=== PATIENT | male | born 1955 | race Caucasian/White ===

== ENCOUNTER 2016-04-21 14:11 | Emergency (ER) | payer SELFPAY ==
--- NOTE | 2016-04-21 14:32 | ER Document Report ---
ED Medical Screen (RME) - General Chief Complaint: Rash Stated Complaint: RASH ON LEGS AND HANDS Mode of Arrival: Ambulatory Information source: Patient Notes: 60 y/o M with hx of type 2 IDDM presents to ED c/o redness, swelling, and drainage to left lower leg over the last 2 weeks. Denies fever. I have greeted and performed a rapid initial assessment of this patient. A comprehensive ED assessment and evaluation of the patient, analysis of test results and completion of the medical decision making process will be conducted by additional ED providers. TRAVEL OUTSIDE OF THE [place] IN LAST 30 DAYS: No - Related Data Allergies/Adverse Reactions: No Known Allergies Allergy (Verified 04/21/16 14:27) Past Medical History - Social History Chew tobacco use (# tins/day): No Frequency of alcohol use: None Drug Abuse: None Pulmonary Medical History: Denies: Hx Tuberculosis Neurological Medical History: Denies: Hx Seizures Renal/ Medical History: Denies: Hx Peritoneal Dialysis Past Surgical History: Denies: Hx Pacemaker - Immunizations Hx Diphtheria, Pertussis, Tetanus Vaccination: No Physical Exam - Vital signs Vitals: Temp Pulse Resp BP Pulse Ox 97.5 F 101 H 24 H 114/64 95 04/21/16 14:21 04/21/16 14:21 04/21/16 14:04/21/16 14:04/21/16 14:21 - General General appearance: Appears well, Alert In distress: None - Respiratory Respiratory status: No respiratory distress Course - Vital Signs Vital signs: Temp Pulse Resp BP Pulse Ox 97.5 F 101 H 24 H 114/64 95 04/21/16 14:21 04/21/16 14:21 04/21/16 14:21 04/21/16 14:21 04/21/16 14:21
[2016-04-21 14:52] LABS: ABSOLUTE BASOPHILS # (AUTO) 0.1 10^3/uL (0.0-0.2); ABSOLUTE EOSINOPHILS # (AUTO) 1.2 10^3/uL (0.0-0.6); ABSOLUTE LYMPHOCYTES (AUTO) 3.3 10^3/uL (0.5-4.7); ABSOLUTE MONOCYTES (AUTO) 1.1 10^3/uL (0.1-1.4); ABSOLUTE NEUT (AUTO) 8.9 10^3/uL (1.7-8.2); BASOPHILS % (AUTO) 0.8 % (0-2); EOSINOPHILS % (AUTO) 8.4 % (0-6); HEMATOCRIT 47.1 % (37.9-51.0); HEMOGLOBIN 15.9 g/dL (13.5-17.0); HGB HCT DIFFERENCE 0.6; LYMPHOCYTES % (AUTO) 22.8 % (13-45); MEAN CORPUSCULAR HEMOGLOBIN 30.7 pg (27.0-33.4); MEAN CORPUSCULAR HGB CONC 33.7 g/dL (32.0-36.0); MEAN CORPUSCULAR VOLUME 91 fl (80-97); MONOCYTES % (AUTO) 7.2 % (3-13); RED BLOOD COUNT 5.17 10^6/uL (4.35-5.55); RED CELL DISTRIBUTION WIDTH 13.6 % (11.5-14.0); SEGMENTED NEUTROPHILS % (AUTO) 60.8 % (42-78); WHITE BLOOD COUNT 14.6 10^3/uL (4.0-10.5)
[2016-04-21 14:58] LABS: APPEARANCE,URINE CLEAR; BILIRUBIN,URINE NEGATIVE (NEGATIVE); GLUCOSE, URINE NEGATIVE (NEGATIVE); KETONES,URINE TRACE mg/dL (NEGATIVE); LEUKOCYTE ESTERASE,URINE NEGATIVE (NEGATIVE); NITRITE,URINE NEGATIVE (NEGATIVE); PROTEIN,URINE 100 mg/dL (NEGATIVE)
[2016-04-21 15:12] LABS: ALANINE AMINOTRANSFERASE 30 U/L (21-72); ALBUMIN 4.2 g/dL (3.5-5.0); ALKALINE PHOSPHATASE 64 U/L (38-126); ANION GAP 12 (5-19); ASPARTATE AMINO TRANSFERASE 19 U/L (17-59); BILIRUBIN,TOTAL 0.5 mg/dL (0.2-1.3); BLOOD UREA NITROGEN 15 mg/dL (7-20); CARBON DIOXIDE 25 mmol/L (22-30); CHLORIDE 103 mmol/L (98-107); CREATININE RESULT 0.99 mg/dL (0.52-1.25); GLUCOSE 96 mg/dL (75-110); POTASSIUM 4.4 mmol/L (3.6-5.0); SODIUM 140.2 mmol/L (137-145)
[2016-04-21] MEDS ORDERED: DOXYCYCLINE HYCLATE 100 MG TABLET PO ONE (17:07)
--- NOTE | 2016-04-21 17:13 | ER Document Report ---
ED General - General Chief Complaint: Rash Stated Complaint: RASH ON LEGS AND HANDS Mode of Arrival: Ambulatory TRAVEL OUTSIDE OF THE [place] IN LAST 30 DAYS: No - HPI Patient complains to provider of: rash Notes: Patient coming in with a rash ongoing for the last 2 weeks. Patient states this rash started on his bilateral lower extremities has been placed alcohol peroxide on his rash. Patient states is continued today therefore came into the ER further evaluation is that he cannot be evaluated by his PCP until May Patient denies fevers chills nausea vomiting denies any medications. Patient is a diabetic. - Related Data Allergies/Adverse Reactions: No Known Allergies Allergy (Verified 04/21/16 14:27) Past Medical History - General Information source: Patient - Social History Smoking Status: Current Every Day Smoker Chew tobacco use (# tins/day): No Frequency of alcohol use: None Drug Abuse: None Family History: None Patient has suicidal ideation: No Patient has homicidal ideation: No - Past Medical History Cardiac Medical History: Reports: Hx Hypercholesterolemia Pulmonary Medical History: Denies: Hx Tuberculosis Neurological Medical History: Denies: Hx Seizures Endocrine Medical History: Reports: Hx Diabetes Mellitus Type 2 Renal/ Medical History: Denies: Hx Peritoneal Dialysis Surgical Hx: Negative Past Surgical History: Denies: Hx Pacemaker - Immunizations Hx Diphtheria, Pertussis, Tetanus Vaccination: Yes Review of Systems - Review of Systems Constitutional: No symptoms reported EENT: No symptoms reported Cardiovascular: No symptoms reported Respiratory: No symptoms reported Gastrointestinal: No symptoms reported Genitourinary: No symptoms reported Male Genitourinary: No symptoms reported Musculoskeletal: No symptoms reported Skin: Rash Hematologic/Lymphatic: No symptoms reported Neurological/Psychological: No symptoms reported -: Yes All other systems reviewed and negative Physical Exam - Vital signs Vitals: Temp Pulse Resp BP Pulse Ox 97.5 F 101 H 24 H 114/64 95 04/21/16 14:21 04/21/16 14:21 04/21/16 14:21 04/21/16 14:21 04/21/16 14:21 Interpretation: Normal - General General appearance: Appears well, Alert - HEENT Head: Normocephalic, Atraumatic Eyes: Normal Pupils: PERRL - Respiratory Respiratory status: No respiratory distress Chest status: Nontender Breath sounds: Normal Chest palpation: Normal - Cardiovascular Rhythm: Regular Heart sounds: Normal auscultation Murmur: No - Abdominal Inspection: Normal Distension: No distension Bowel sounds: Normal Tenderness: Nontender Organomegaly: No organomegaly - Back Back: Normal, Nontender - Extremities General upper extremity: Normal inspection, Nontender, Normal color, Normal ROM , Normal temperature General lower extremity: Normal inspection, Nontender, Normal color, Normal ROM , Normal temperature, Normal weight bearing. No: Arabella's sign - Neurological Neuro grossly intact: Yes Cognition: Normal Orientation: AAOx4 [place] Coma Scale Eye Opening: Spontaneous [place] Coma Scale Verbal: Oriented [place] Coma Scale Motor: Obeys Commands [place] Coma Scale Total: 15 Speech: Normal Motor strength normal: LUE, RUE, LLE, RLE Sensory: Normal - Psychological Associated symptoms: Normal affect, Normal mood - Skin Skin Temperature: Warm Skin Moisture: Dry Skin Color: Normal Notes: Patient with diffuse Tammie extremities. Rash change in characteristics throughout extremities. Rashes scaly with scarring from patient scratching days pruritic on the extremities and on the trunk. Large white plaques that can reflect off. There are multiple areas on the lower extremities. Minimal warmth. Patient has multiple areas on the back almost consistent with flea bites or insect bites. No posturals no drainage. Patient does have rash on his palms is non-blanchable unclear etiology. Patient denies any trauma. Course - Re-evaluation Re-evalutation: 04/22/16 23:07 Unknown etiology the patient's rash. Patient denies to bites denies any recent travel denies any recent mosquito bites states he does have animal dialysis denies any fleas. Patient will be started on doxycycline and RPR recent we will have social studies department chair contact patient to follow-up as PCP. 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 - Vital Signs Vital signs: Temp Pulse Resp BP Pulse Ox 97.5 F 89 20 140/75 H 97 04/21/16 17:28 04/21/16 17:28 04/21/16 17:28 04/21/16 17:28 04/21/16 17:28 - Laboratory Result Diagrams: 04/21/16 14:35 04/21/16 14:35 Laboratory results interpreted by me: 04/21/16 04/21/16 14:35 14:35 WBC 14.6 H Eosinophils % 8.4 H Absolute Neutrophils 8.9 H Absolute Eosinophils 1.2 H Urine Protein 100 H Urine Ketones TRACE H Urine Blood SMALL H Urine Urobilinogen 4.0 H Discharge - Discharge Clinical Impression: infected dermatitis Condition: Good Disposition: HOME, SELF-CARE Instructions: Contact Dermatitis ([facility]), Cellulitis ([facility]) Additional Instructions: At this time I am uncertain of a clear diagnosis for your rash. I will be concern some areas are becoming affected therefore we'll start you on doxycycline. Please take as directed. Unfortunately our social studies department chair has gone on for today but I will leave your information available for her to try to make an earlier appointment with the clinic tomorrow. He can expect a phone call tomorrow from Brian Patel RN Prescriptions: Doxycycline Hyclate 100 mg PO BID #20 capsule
[2016-04-21 17:32] VITALS: BP 140/75
== END 2016-04-21 17:28 | disposition home or self-care (01) ==
LOC: ER 14:11
DX: L30.3 Infective dermatitis (principal); E11.9 Type 2 diabetes mellitus without complications; F17.200 Nicotine dependence, unspecified, uncomplicated
CPT/HCPCS: 36415; 80053; 81001; 85025; 86592; 99283

== ENCOUNTER → 2016-05-19 | Outpatient (CLI) | payer OTHER ==
[2016-05-19 12:44] LABS: ABSOLUTE BASOPHILS # (AUTO) 0.1 10^3/uL (0.0-0.2); ABSOLUTE EOSINOPHILS # (AUTO) 0.8 10^3/uL (0.0-0.6); ABSOLUTE LYMPHOCYTES (AUTO) 2.1 10^3/uL (0.5-4.7); ABSOLUTE NEUT (AUTO) 4.9 10^3/uL (1.7-8.2); BASOPHILS % (AUTO) 0.7 % (0-2); EOSINOPHILS % (AUTO) 8.7 % (0-6); HEMATOCRIT 46.4 % (37.9-51.0); HEMOGLOBIN 15.8 g/dL (13.5-17.0); LYMPHOCYTES % (AUTO) 23.7 % (13-45); MEAN CORPUSCULAR HEMOGLOBIN 30.9 pg (27.0-33.4); MEAN CORPUSCULAR VOLUME 91 fl (80-97); RED BLOOD COUNT 5.11 10^6/uL (4.35-5.55); RED CELL DISTRIBUTION WIDTH 13.8 % (11.5-14.0); SEGMENTED NEUTROPHILS % (AUTO) 55.9 % (42-78); WHITE BLOOD COUNT 8.8 10^3/uL (4.0-10.5)
[2016-05-19 13:11] LABS: ALANINE AMINOTRANSFERASE 34 U/L (21-72); ALKALINE PHOSPHATASE 62 U/L (38-126); ANION GAP 11 (5-19); ASPARTATE AMINO TRANSFERASE 19 U/L (17-59); BILIRUBIN,TOTAL 0.5 mg/dL (0.2-1.3); BLOOD UREA NITROGEN 12 mg/dL (7-20); CALCIUM 9.5 mg/dL (8.4-10.2); CARBON DIOXIDE 28 mmol/L (22-30); CHLORIDE 102 mmol/L (98-107); CREATININE RESULT 0.83 mg/dL (0.52-1.25); GLUCOSE 154 mg/dL (75-110); POTASSIUM 4.4 mmol/L (3.6-5.0); SODIUM 140.7 mmol/L (137-145); TOTAL PROTEIN 6.7 g/dL (6.3-8.2)
[2016-05-19 13:21] LABS: ERYTHROCYTE SEDIMENTATION RATE 19 mm/hr (0-20)
== END ==
LOC: CCC 12:02
DX: R21 Rash and other nonspecific skin eruption (principal)
CPT/HCPCS: 36415; 80053; 85025; 85652; 86592

== ENCOUNTER → 2016-09-30 | Outpatient (CLI) | payer OTHER | LOC: CCC 12:51 | DX: E11.9 Type 2 diabetes mellitus without complications (principal) | CPT/HCPCS: 36415; 83036 ==

== ENCOUNTER 2018-01-06 10:21 | Inpatient (IN) | payer SELFPAY ==
[2018-01-06] MEDS ORDERED: FUROSEMIDE INJ/PF 40 MG/4 ML SDV IV ONE (10:49)
--- NOTE | 2018-01-06 10:50 | ER Document Report ---
ED Medical Screen (RME) - General Chief Complaint: Shortness Of Breath Stated Complaint: LEG SWELLING, SHORTNESS OF BREATH Time Seen by Provider: 01/06/18 10:45 TRAVEL OUTSIDE OF THE [place] IN LAST 30 DAYS: No - HPI Notes: 01/06/18 10:49 Leg swelling shortness of breath ongoing for a week with shortness of breath history of diabetes states his random of his "heart medication" denies OR in the past. Denies any pain - Related Data Allergies/Adverse Reactions: No Known Allergies Allergy (Verified 01/06/18 10:48) Past Medical History - Social History Chew tobacco use (# tins/day): No Frequency of alcohol use: None Drug Abuse: None - Past Medical History Cardiac Medical History: Reports: Hx Hypercholesterolemia Pulmonary Medical History: Denies: Hx Tuberculosis Neurological Medical History: Denies: Hx Seizures Endocrine Medical History: Reports: Hx Diabetes Mellitus Type 2 Renal/ Medical History: Denies: Hx Peritoneal Dialysis Past Surgical History: Denies: Hx Pacemaker - Immunizations Hx Diphtheria, Pertussis, Tetanus Vaccination: Yes Review of Systems - Review of Systems Respiratory: Short of breath Physical Exam - Vital signs Vitals: Temp Pulse Resp BP Pulse Ox 97.8 F 87 20 161/74 H 96 01/06/18 10:26 01/06/18 10:26 01/06/18 10:26 01/06/18 10:26 01/06/18 10:26 - Respiratory Respiratory status: No respiratory distress Chest status: Nontender Breath sounds: Rales Chest palpation: Normal - Extremities General lower extremity: Edema Course - Vital Signs Vital signs: Temp Pulse Resp BP Pulse Ox 97.8 F 87 20 161/74 H 96 01/06/18 10:26 01/06/18 10:26 01/06/18 10:26 01/06/18 10:26 01/06/18 10:26 Doctor's Discharge - Discharge Referrals: [facility] [Primary Care Provider] - Follow up as needed
[2018-01-06 11:35] LABS: ABSOLUTE BASOPHILS # (AUTO) 0.2 10^3/uL (0.0-0.2); ABSOLUTE EOSINOPHILS # (AUTO) 0.8 10^3/uL (0.0-0.6); ABSOLUTE LYMPHOCYTES (AUTO) 1.7 10^3/uL (0.5-4.7); ABSOLUTE MONOCYTES (AUTO) 0.8 10^3/uL (0.1-1.4); ABSOLUTE NEUT (AUTO) 7.4 10^3/uL (1.7-8.2); BASOPHILS % (AUTO) 1.5 % (0-2); EOSINOPHILS % (AUTO) 7.6 % (0-6); HEMATOCRIT 38.8 % (37.9-51.0); HEMOGLOBIN 12.9 g/dL (13.5-17.0); LYMPHOCYTES % (AUTO) 15.7 % (13-45); MEAN CORPUSCULAR HEMOGLOBIN 30.3 pg (27.0-33.4); MEAN CORPUSCULAR HGB CONC 33.2 g/dL (32.0-36.0); MEAN CORPUSCULAR VOLUME 91 fl (80-97); MONOCYTES % (AUTO) 7.3 % (3-13); PLATELET COUNT 302 10^3/uL (150-450); RED BLOOD COUNT 4.25 10^6/uL (4.35-5.55); RED CELL DISTRIBUTION WIDTH 14.6 % (11.5-14.0); SEGMENTED NEUTROPHILS % (AUTO) 67.9 % (42-78); TOTAL CELLS COUNTED % (AUTO) 100 %
[2018-01-06 11:39] LABS: INTERNATIONAL RATION (INR) 1.02; PROTHROMBIN TIME 13.9 SEC (11.4-15.4)
[2018-01-06 11:52] LABS: ALANINE AMINOTRANSFERASE 21 U/L (21-72); ALBUMIN 2.7 g/dL (3.5-5.0); ALKALINE PHOSPHATASE 185 U/L (38-126); ANION GAP 7 (5-19); ASPARTATE AMINO TRANSFERASE 29 U/L (17-59); BILIRUBIN,DIRECT 0.3 mg/dL (0.0-0.4); BILIRUBIN,TOTAL 0.5 mg/dL (0.2-1.3); BLOOD UREA NITROGEN 22 mg/dL (7-20); CALCIUM 8.2 mg/dL (8.4-10.2); CARBON DIOXIDE 24 mmol/L (22-30); CHLORIDE 114 mmol/L (98-107); CREATINE KINASE 445 U/L (55-170); GLUCOSE 129 mg/dL (75-110); POTASSIUM 4.2 mmol/L (3.6-5.0); TOTAL PROTEIN 5.7 g/dL (6.3-8.2)
--- NOTE | 2018-01-06 11:56 | RADIOLOGY REPORT (SQ) ---
EXAM DESCRIPTION: CHEST 2 VIEWS COMPLETED DATE/TIME: 01/06/2018 11:16 am REASON FOR STUDY: sob COMPARISON: 10/21/2015 chest films EXAM PARAMETERS: NUMBER OF VIEWS: two views TECHNIQUE: Digital Frontal and Lateral radiographic views of the chest acquired. RADIATION DOSE: NA LIMITATIONS: none FINDINGS: LUNGS AND PLEURA: Moderate bilateral pleural effusions are present. Alveolar and intersti tial edema is present with pulmonary vascular congestion. There is airspace disease in the lung bases, likely atelectasis. Pneumonia could not be excluded. MEDIASTINUM AND HILAR STRUCTURES: No masses or contour abnormalities. HEART AND VASCULAR STRUCTURES: Mild cardiomegaly BONES: No acute findings. HARDWARE: None in the chest. OTHER: No other significant finding. IMPRESSION: Bilateral pleural effusions, alveolar and interstitial edema worrisome for fluid overloa d or congestive failure. Bilateral basilar consolidation atelectasis versus pneumonia TECHNICAL DOCUMENTATION: JOB ID: [id number] [employer]- All Rights Reserved Reading location - IP/workstation name: [email or web address]
[2018-01-06 12:02] LABS: VENOUS BLOOD BASE EXCESS -4.3 mmol/L; VENOUS BLOOD HCO3 21.7 mmol/L (20-32); VENOUS BLOOD PH 7.32 (7.30-7.42)
[2018-01-06 12:04] LABS: CREATINE KINASE MB 7.23 ng/mL (<4.55); TROPONIN I 0.033 ng/mL
[2018-01-06] MEDS ORDERED: NITROGLYCERIN 2% OINTMENT 1 GM PACKET TP ONE (12:04)
--- NOTE | 2018-01-06 12:06 | ER Document Report ---
ED General - General Chief Complaint: Shortness Of Breath Stated Complaint: LEG SWELLING, SHORTNESS OF BREATH Time Seen by Provider: 01/06/18 10:45 Mode of Arrival: Ambulatory Information source: Patient TRAVEL OUTSIDE OF THE [place] IN LAST 30 DAYS: No - HPI Patient complains to provider of: short of breath Onset: Other - This is a 62-year-old man with a history of diabetes that presents for evaluation of worsening shortness of breath and leg swelling with associated pain over the last week. He notes that it is been progressive, his sister notes that he has become so short of breath but occasionally he is sitting on bed and will nod off or potentially pass out according to her. He is treated with insulin for diabetes, nothing seems to make this any better or worse. No fevers no chills no recent trauma swelling or other injuries. - Related Data Allergies/Adverse Reactions: No Known Allergies Allergy (Verified 01/06/18 10:48) Past Medical History - General Information source: Patient - Social History Smoking Status: Current Every Day Smoker Chew tobacco use (# tins/day): No Frequency of alcohol use: None Drug Abuse: None Family History: None Patient has suicidal ideation: No Patient has homicidal ideation: No - Past Medical History Cardiac Medical History: Reports: Hx Hypercholesterolemia Pulmonary Medical History: Denies: Hx Tuberculosis Neurological Medical History: Denies: Hx Seizures Endocrine Medical History: Reports: Hx Diabetes Mellitus Type 2 Renal/ Medical History: Denies: Hx Peritoneal Dialysis Past Surgical History: Denies: Hx Pacemaker - Immunizations Hx Diphtheria, Pertussis, Tetanus Vaccination: Yes Review of Systems - Review of Systems -: Yes All other systems reviewed and negative Physical Exam - Vital signs Vitals: Temp Pulse Resp BP Pulse Ox 97.8 F 87 20 161/74 H 96 01/06/18 10:26 01/06/18 10:26 01/06/18 10:26 01/06/18 10:26 01/06/18 10:26 - General General appearance: Appears well, Alert In distress: Mild - HEENT Head: Normocephalic Eyes: Normal Conjunctiva: Normal Cornea: Normal Extraocular movements intact: Yes Eyelashes: Normal Pupils: PERRL - Respiratory Respiratory status: Tachypnea Chest status: Nontender Breath sounds: Rhonchi - inferior lung jacob Chest palpation: Normal - Cardiovascular Rhythm: Regular Heart sounds: S2 appreciated Murmur: No - Abdominal Inspection: Normal Distension: Distended Tenderness: Nontender Organomegaly: No organomegaly - Back Back: Normal - Extremities General upper extremity: Normal inspection, Nontender, Normal strength, Normal temperature General lower extremity: Normal inspection, Edema - +3 pitting edema in the lower extremities bilaterally from the level of the knee distally - Neurological Neuro grossly intact: Yes Cognition: Normal Orientation: AAOx4 [place] Coma Scale Eye Opening: Spontaneous [place] Coma Scale Verbal: Oriented [place] Coma Scale Motor: Obeys Commands [place] Coma Scale Total: 15 Speech: Normal Cranial nerves: Normal Motor strength normal: LUE, RUE, LLE, RLE - Psychological Associated symptoms: Normal affect Course - Re-evaluation Re-evalutation: 01/06/18 13:49 This 62-year-old male presents for evaluation of swelling dyspnea in the setting of not having been treated for a long period of time. Given that this patient has evidence and signs of heart failure though he does not have a formal diagnosis patient was diuresed through triage. His EKG does demonstrate multiple areas of depressions concerning for demand ischemia. We will add a vasoactive agent as this patient is hypertensive at this time. Patient also has notable effusions on his chest x-ray. Has a markedly elevated BNP. His troponin is not appreciably elevated, as such I believe this is likely a pure heart failure exacerbation. Contacted Dr. Sanon who notes that the patient would benefit from from Vasotec, will initiate low-dose Vasotec 2.5 mg IV x1 as his renal function is somewhat limited. We will also dose patient with Toprol Exar, 100 mg. We will also plan for continued monitoring and aggressive diuresis. Patient is also had nitroglycerin paste applied to his chest. His work of breathing is modestly improved and has begun to urinate. Have spoken to the hospitalist Dr. Mcallister who agrees to admit this patient and continue monitoring will plan for admission to the hospital with telemetry. At the time of admission the patient was hemodynamically stable, his work of breathing had improved and he was on room air. - Vital Signs Vital signs: Temp Pulse Resp BP Pulse Ox 97.3 F 68 20 155/75 H 100 01/06/18 16:40 01/06/18 16:40 01/06/18 16:40 01/06/18 16:40 01/06/18 16:40 - Laboratory Result Diagrams: 10/20/18 11:00 01/06/18 11:00 Laboratory results interpreted by me: 01/06/18 01/06/18 01/06/18 11:00 11:00 11:00 WBC 11.0 H RBC 4.25 L Hgb 12.9 L RDW 14.6 H Eosinophils % 7.6 H Absolute Eosinophils 0.8 H Chloride 114 H BUN 22 H Creatinine 1.66 H Est GFR ( Amer) 51 L Est GFR (Non-Af Amer) 42 L Glucose 129 H Calcium 8.2 L Alkaline Phosphatase 185 H Creatine Kinase 445 H CK-MB (CK-2) 7.23 H NT-Pro-B Natriuret Pep 48121 H Total Protein 5.7 L Albumin 2.7 L Urine Protein Urine Glucose (UA) Urine Blood 01/06/18 01/06/18 01/06/18 12:21 13:45 13:45 WBC RBC Hgb RDW Eosinophils % Absolute Eosinophils Chloride BUN Creatinine Est GFR ( Amer) Est GFR (Non-Af Amer) Glucose Calcium Alkaline Phosphatase Creatine Kinase 426 H CK-MB (CK-2) 7.28 H NT-Pro-B Natriuret Pep Total Protein Albumin Urine Protein >=500 H Urine Glucose (UA) 50 H Urine Blood SMALL H Discharge - Discharge Clinical Impression: Leg swelling CHF (congestive heart failure) Qualifiers: Heart failure type: unspecified Heart failure chronicity: acute Qualified Code( s): I50.9 - Heart failure, unspecified Dyspnea Qualifiers: Dyspnea type: dyspnea on exertion Qualified Code(s): R06.09 - Other forms of dyspnea Leg pain Qualifiers: Laterality: left Qualified Code(s): M79.605 - Pain in left leg Condition: Stable Disposition: ADMITTED INPATIENT Admitting Provider: Hospitalist Unit Admitted: Telemetry Referrals: [facility] [NO LOCAL MD] - Follow up as needed
[2018-01-06] MEDS ORDERED: ENALAPRILAT DIHYDRATE INJ/PF 2.5 MG/2 ML SDV IV ONE (12:29)
[2018-01-06] MEDS ORDERED: METOPROLOL SUCCINATE 25 MG TAB.SR.24H PO ONE ×2 (12:30→12:36)
--- NOTE | 2018-01-06 12:57 | EKG REPORT ---
SEVERITY:- ABNORMAL ECG - SINUS RHYTHM PROBABLE LEFT ATRIAL ABNORMALITY RIGHT BUNDLE BRANCH BLOCK BORDERLINE ST DEPRESSION, LATERAL LEADS : Confirmed by: Bob Gutierrez MD 06-Jan-2018 12:57:10
[2018-01-06] MEDS ORDERED: TEMAZEPAM 15 MG CAPSULE PO PRN (13:26)
[2018-01-06] MEDS ORDERED: ACETAMINOPHEN 325 MG TABLET PO PRN (13:26)
[2018-01-06] MEDS ORDERED: MAGNESIUM HYDROXIDE SUSP 30 ML UDCUP PO PRN (13:26)
[2018-01-06] MEDS ORDERED: ONDANSETRON 4 MG TAB.RAPDIS PO PRN (13:26)
[2018-01-06] MEDS ORDERED: MAG HYDROX/AL HYDROX/SIMETH SUSP 30 ML UDCUP PO PRN (13:26)
[2018-01-06] MEDS ORDERED: SPIRONOLACTONE 25 MG TABLET PO ONE ×2 (13:41→17:15)
--- NOTE | 2018-01-06 13:44 | RADIOLOGY REPORT (SQ) ---
EXAM DESCRIPTION: VENOUS UNILATERAL LOWER COMPLETED DATE/TIME: 01/06/2018 12:36 pm REASON FOR STUDY: concern for dvt lle COMPARISON: None. TECHNIQUE: Dynamic and static almaraz scale and color images acquired of the left leg venous system. Se lected spectral images acquired with additional compression and augmentation maneuvers. The contralat eral common femoral vein and saphenofemoral junction were also imaged. Images stored on PACS. LIMITATIONS: None. FINDINGS: COMMON FEMORAL: Normal phasicity, compression and augmentation. No visualized echogenic ma terial on almaraz scale. No defects on color images. FEMORAL: Normal compression and augmentation. No visualized echogenic material on almaraz scale. No defe cts on color images. POPLITEAL: Normal compression, augmentation. No visualized echogenic material on almaraz scale. No defec ts on color images. CALF VESSELS: Normal compression, augmentation. No visualized echogenic material on almaraz scale. No de fects on color images. GSV and SSV: Normal compression, augmentation. No visualized echogenic material on almaraz scale. No def ects on color images. ANY DEEP VENOUS INSUFFICIENCY: Not evaluated. ANY EVIDENCE OF POPLITEAL CYST: No. OTHER: No other significant finding. CONTRALATERAL COMMON FEMORAL VEIN AND SAPHENOFEMORAL JUNCTION: Normal phasicity, compression and augmentation. No visualized echogenic material on almaraz scale. No de fects on color images. IMPRESSION: NO EVIDENCE OF DVT OR SVT IN THE LEFT LEG. TECHNICAL DOCUMENTATION: JOB ID: [id number] [employer]- All Rights Reserved Reading location - IP/workstation name: [email or web address]
[2018-01-06] MEDS ORDERED: MORPHINE SULFATE 10 MG/ML INJ IV ONE (14:09)
[2018-01-06] MEDS ORDERED: MORPHINE SULFATE 10 MG/ML INJ IV PRN (14:09)
[2018-01-06 14:44] LABS: CREATINE KINASE MB 7.28 ng/mL (<4.55); TROPONIN I 0.028 ng/mL
[2018-01-06 14:58] LABS: APPEARANCE,URINE CLEAR; BILIRUBIN,URINE NEGATIVE (NEGATIVE); COLOR,URINE YELLOW; GLUCOSE, URINE 50 mg/dL (NEGATIVE); KETONES,URINE NEGATIVE (NEGATIVE); LEUKOCYTE ESTERASE,URINE NEGATIVE (NEGATIVE); NITRITE,URINE NEGATIVE (NEGATIVE); PROTEIN,URINE >=500 mg/dL (NEGATIVE); URINE SPECIFIC GRAVITY 1.013; UROBILINOGEN,URINE NEGATIVE mg/dL (<2.0)
[2018-01-06 15:08] LABS: URINE AMPHETAMINES SCREEN NEGATIVE; URINE BARBITURATES SCREEN NEGATIVE; URINE BENZODIAZEPINES SCREEN NEGATIVE; URINE COCAINE SCREEN NEGATIVE; URINE MARIJUANA (THC) SCREEN NEGATIVE; URINE METHADONE SCREEN NEGATIVE; URINE PHENCYCLIDINE SCREEN NEGATIVE
[2018-01-06] MEDS ORDERED: INSULIN LISPRO 100 UNIT/ML 3 ML VIAL SUBCUT PRN (15:53)
[2018-01-06] MEDS ORDERED: HUM INSULIN NPH/REG INSULIN HM 100 UNIT/1 ML 3 ML SUBCUT SCH (16:00)
--- NOTE | 2018-01-06 16:30 | PDOC H&P ---
History of Present Illness Admission Date/PCP: 01/06/2018 [facility] Patient complains of: Dyspnea and swelling History of Present Illness: YAHIR PARSON is a 62 year old male who presents to the emergency room with a one-week history of gradually worsening dyspnea and swelling of his bilateral lower extremities. His dyspnea is markedly worsened by activity and somewhat relieved by rest. He assesses his dyspnea as severe at this time because he is currently so short of breath that he has a hard time sitting up. His swelling has been severe with making the use of footware very uncomfortable and restricting his ability to ambulate. The swelling affects his bilateral feet and both of his lower legs up to just above his knees. He has had the associated symptoms of somnolence episodes when he is trying to sit up (his sister notes that he will just "nod off" at times. He denies chest pain, palpitations, orthopnea, diaphoresis, nausea, vomiting, abdominal pain, constipation, diarrhea, dyspepsia, dysuria, back pain, neck pain, jaw pain, arm pain, headache and rash. He denies prior similar episodes and has not identified any other aggravating or ameliorating factors for his dyspnea or swelling. He gives a past medical history positive for diabetes and hypertension but he is indigent and is only taking Humulin 70/30 insulin for his diabetes twice a day as it is provided to him by the [facility]. In the emergency room he was found to have a markedly elevated BNP at 11,800 with a creatinine of 1.66 and mildly elevated cardiac enzymes. He will be admitted to the hospitalist service on the medical floor for treatment of his acute congestive heart failure and further evaluation of his cardiac status. Past Medical History Cardiac Medical History: Reports: Hyperlipidema, Hypertension, Other - Diabetes mellitus type 2 Denies: Atrial Fibrillation, Congestive Heart Failure, Coronary Artery Disease, DVT, Myocardial Infarction, Peripheral Vascular Disease, Pulmonary Embolism, Heart Murmur Pulmonary Medical History: Denies: Asthma, Chronic Obstructive Pulmonary Disease (COPD), Intubation, Pneumonia, Respiratory Failure, Tuberculosis EENT Medical History: Reports: None Neurological Medical History: Denies: Hemorrhagic CVA, Ischemic CVA, Seizures Endocrine Medical History: Reports: Diabetes Mellitus Type 2 Denies: Diabetes Mellitus Type 1, Hyperthyroidism, Hypothyroidism Renal/ Medical History: Denies: Chronic Kidney Disease, Nephrolithiasis Malignancy Medical History: Reports: None GI Medical History: Denies: Cirrhosis, Crohn's Disease, Gastroesophageal Reflux Disease, Hepatitis, Peptic Ulcer Disease, Ulcerative Colitis Musculoskeltal Medical History: Denies: Arthritis, Gout Skin Medical History: Denies: Eczema, Psoriasis Psychiatric Medical History: Reports: Tobacco Dependency Denies: Alcohol Dependency, Dementia, Depression, General Anxiety Disorder, Substance Abuse Traumatic Medical History: Reports: None Hematology: Denies: Anemia, Hemophilia, Bleeding Tendencies Infectious Medical History: Reports: None Past Surgical History Past Surgical History: Denies: Cardiac Catheterization, Orthopedic Surgery, Pacemaker, Thyroidectomy , Vascular Surgery Social History Lives with: Family Smoking Status: Current Every Day Smoker Frequency of Alcohol Use: Rare Hx Recreational Drug Use: No Hx Prescription Drug Abuse: No Family History Family History: DM, Hypertension Parental Family History Reviewed: Yes Children Family History Reviewed: NA Sibling(s) Family History Reviewed.: Yes Medication/Allergy Home Medications: Insulin Glargine,Hum.rec.anlog [Lantus] 40 unit SQ QHS 01/06/18 Allergies/Adverse Reactions: No Known Allergies Allergy (Verified 01/06/18 10:48) Review of Systems Constitutional: ABSENT: chills, fatigue, fever(s), weakness Eyes: ABSENT: visual disturbances, other - Ocular pain Ears: ABSENT: hearing changes, other - Ear pain Nose, Mouth, and Throat: ABSENT: headache(s), mouth pain, sore throat, vertigo Cardiovascular: PRESENT: dyspnea on exertion, edema, orthropnea. ABSENT: chest pain, palpitations Respiratory: PRESENT: cough, dyspnea. ABSENT: hemoptysis, sputum Gastrointestinal: ABSENT: abdominal pain, constipation, diarrhea, dysphagia, hematochezia, melena, nausea, vomiting, other - Dyspepsia Genitourinary: ABSENT: difficulty urinating, dysuria, hematuria Musculoskeletal: PRESENT: other - Intermittent pain in the right knee. ABSENT: back pain, deformity, joint swelling, muscle weakness Integumentary: PRESENT: other - Dark skin of bilateral lower legs with scaling appearance. ABSENT: pruritus, rash Neurological: PRESENT: confusion - With history of present illness. ABSENT: convulsions, dizziness, focal weakness, memory loss, paresthesias, syncope, tremor(s) Psychiatric: PRESENT: anxiety - With history of present illness. ABSENT: depression Endocrine: ABSENT: cold intolerance, heat intolerance, polydipsia, polyphagia, polyuria Hematologic/Lymphatic: ABSENT: easy bleeding, easy bruising Allergic/Immunologic: ABSENT: seasonal rhinorrhea, other - Insect bite allergy Physical Exam Vital Signs: Temp Pulse Resp BP Pulse Ox 97.8 F 87 25 H 206/98 H 94 01/06/18 10:26 01/06/18 10:26 01/06/18 12:01 01/06/18 12:01 01/06/18 12:01 General appearance: PRESENT: cooperative, mild distress - Mild respiratory distress Head exam: PRESENT: atraumatic, normocephalic Eye exam: PRESENT: conjunctiva pink, EOMI. ABSENT: conjunctival injection, nystagmus, periorbital swelling, scleral icterus Ear exam: PRESENT: normal external ear exam. ABSENT: bleeding, drainage Mouth exam: PRESENT: neck supple, tongue midline Neck exam: PRESENT: JVD - Moderate bilateral JVD at 30 degrees of elevation. ABSENT: thyromegaly, tracheal deviation Respiratory exam: PRESENT: decreased breath sounds - Bilateral lower lung jacob show significant decrease in breath sounds and dullness on percussion., rales - Bilateral fine rales in the lower one third of both lung jacob, symmetrical, tachypnea, unlabored. ABSENT: prolonged expiratory phas, rhonchi, stridor, wheezes Cardiovascular exam: PRESENT: gallop - A moderate S3 gallop is noted, RRR, tachycardia. ABSENT: clicks, rubs Pulses: PRESENT: normal radial pulses, other - Decreased pedal pulses bilaterally secondary to edema Vascular exam: PRESENT: normal capillary refill. ABSENT: pallor GI/Abdominal exam: PRESENT: normal bowel sounds, soft Rectal exam: PRESENT: deferred Extremities exam: PRESENT: other - There is 3+ pitting edema of the bilateral lower extremities from the feet to the distal one third of the femurs.. ABSENT : joint swelling Musculoskeletal exam: ABSENT: deformity, dislocation, tenderness Neurological exam: PRESENT: alert, oriented to person, oriented to place, oriented to time, oriented to situation, CN II-XII grossly intact. ABSENT: motor sensory deficit Psychiatric exam: PRESENT: appropriate affect, normal mood Skin exam: ABSENT: jaundice, rash, urticaria Results Laboratory Results: 01/06/18 11:00 01/06/18 11:00 01/06/18 01/06/18 01/06/18 11:00 11:00 11:50 WBC 11.0 H RBC 4.25 L Hgb 12.9 L Hct 38.8 MCV 91 MCH 30.3 MCHC 33.2 RDW 14.6 H Plt Count 302 Seg Neutrophils % 67.9 Lymphocytes % 15.7 Monocytes % 7.3 Eosinophils % 7.6 H Basophils % 1.5 Absolute Neutrophils 7.4 Absolute Lymphocytes 1.7 Absolute Monocytes 0.8 Absolute Eosinophils 0.8 H Absolute Basophils 0.2 VBG pH 7.32 VBG pCO2 43.0 VBG HCO3 21.7 VBG Base Excess -4.3 Sodium 145.0 Potassium 4.2 Chloride 114 H Carbon Dioxide 24 Anion Gap 7 BUN 22 H Creatinine 1.66 H Est GFR ( Amer) 51 L Est GFR (Non-Af Amer) 42 L Glucose 129 H Calcium 8.2 L Total Bilirubin 0.5 AST 29 ALT 21 Alkaline Phosphatase 185 H Total Protein 5.7 L Albumin 2.7 L 01/06/18 01/06/18 11:00 11:00 Creatine Kinase 445 H CK-MB (CK-2) 7.23 H Troponin I 0.033 NT-Pro-B Natriuret Pep 26781 H Impressions: Chest X-Ray 01/06/18 10:48 IMPRESSION: Bilateral pleural effusions, alveolar and interstitial edema worrisome for fluid overload or congestive failure. Bilateral basilar consolidation atelectasis versus pneumonia Venous Doppler Study 01/06/18 11:42 IMPRESSION: NO EVIDENCE OF DVT OR SVT IN THE LEFT LEG. Assessment & Plan - Diagnosis (1) Acute CHF (congestive heart failure) Qualifiers: Heart failure type: unspecified Qualified Code(s): I50.9 - Heart failure, unspecified Is this a current diagnosis for this admission?: Yes Plan: Serial cardiac enzymes will be obtained, as will serial EKGs. An echocardiogram will be performed and will arrange for Dr. Sanon to interpret it. Medical regiment utilizing metoprolol XL, Spironolactone, losartan, torsemide and possibly a statin agent if appropriate after obtaining a lipid profile. In assessment of overall thyroid function utilizing a TSH will be obtained as will regular daily lab work of a CBC, BMP and magnesium level. With patient's initial dyspnea and marked edema he is significantly uncomfortable and it would warrant treating him with low-dose morphine to aid in his comfort and also help to resolve his heart failure. As such he will receive morphine sulfate 2 mg IV stat and this can be repeated every 4 hours as needed for severe dyspnea or restlessness and discomfort. (2) DM II (diabetes mellitus, type II), controlled Qualifiers: Diabetes mellitus acupuncture physician insulin use: with mcfp use Diabetes mellitus complication status: with kidney complications Diabetes mellitus complication detail: with chronic kidney disease Chronic kidney disease stage : stage 3 (moderate) Qualified Code(s): E11.22 - Type 2 diabetes mellitus with diabetic chronic kidney disease; N18.3 - Chronic kidney disease, stage 3 ( moderate); N18.3 - Chronic kidney disease, stage 3 (moderate); N18.3 - Chronic kidney disease, stage 3 (moderate); Z79.4 - group home (current) use of insulin; Z79.4 - cvt tech (current) use of insulin; Z79.4 - cvt tech (current) use of insulin; Z79.4 - group home (current) use of insulin Is this a current diagnosis for this admission?: Yes Plan: Patient will be continued on his current human insulin NPH/regular 70/30 using 25 units subcutaneously twice a day before breakfast and supper. He will be placed on a sliding scale with lispro insulin and before meals and at bedtime blood sugars to monitor his diabetes. Additionally hemoglobin A1c will be obtained in a.m. (3) HTN (hypertension), malignant Is this a current diagnosis for this admission?: Yes Plan: Patient's blood pressure will be addressed in time is to address his congestive heart failure utilizing a combination of agents including metoprolol extended release 200 mg p.o. daily, losartan 100 mg p.o. daily, spironolactone 25 mg p.o. daily, torsemide 40 mg p.o. daily. Daily lab values will be obtained to monitor the potential therapeutic side effects for depletion of vital electrolytes. Renal functions will also be reassessed daily. (4) CKD (chronic kidney disease) stage 3, GFR 30-59 ml/min Is this a current diagnosis for this admission?: Yes Plan: Patient has chronic renal failure stage IIIb. The patient's medication regimen is adjusted such that his SHE inhibitor (lisinopril) is discontinued in favor of the use of an ARB (losartan) in hopes that we may see some slight improvement in his renal function. His renal functions will be monitored on a daily basis throughout his hospital course. - Time Time Spent: Greater than 70 Minutes - [id number] Smoking Cessation Education: 3 to 10 minutes Medications reviewed and adjusted accordingly: Yes Anticipated discharge: Home - Plan Summary Plan Summary: Admit to acute inpatient medical care on the medical floor.
[2018-01-06] MEDS ORDERED: TORSEMIDE 20 MG TABLET PO ONE (17:09)
[2018-01-06] MEDS: DOCUSATE SODIUM 100 MG CAPSULE PO SCH (17:40)
[2018-01-06] MEDS: TORSEMIDE 20 MG TABLET PO SCH (17:49)
[2018-01-06] MEDS: LOSARTAN POTASSIUM 50 MG TABLET PO SCH (17:55)
[2018-01-06 20:08] LABS: CREATINE KINASE MB 6.37 ng/mL (<4.55); TROPONIN I 0.028 ng/mL
[2018-01-06] MEDS ORDERED: INSULIN GLARGINE,HUM.REC.ANLOG 1,000 UNIT/10 ML UNIT SUBCUT SCH (22:00)
[2018-01-06] MEDS: METOPROLOL SUCCINATE 50 MG TAB.SR.24H PO SCH (22:56)
[2018-01-06] MEDS: FAMOTIDINE 20 MG TABLET PO SCH (22:56)
[2018-01-07 02:50] LABS: CREATINE KINASE MB 6.2 ng/mL (<4.55); TROPONIN I 0.024 ng/mL
[2018-01-07 05:34] LABS: HEMATOCRIT 36.7 % (37.9-51.0); HEMOGLOBIN 12.6 g/dL (13.5-17.0); MEAN CORPUSCULAR HEMOGLOBIN 31.2 pg (27.0-33.4); MEAN CORPUSCULAR HGB CONC 34.4 g/dL (32.0-36.0); MEAN CORPUSCULAR VOLUME 91 fl (80-97); PLATELET COUNT 313 10^3/uL (150-450); RED BLOOD COUNT 4.05 10^6/uL (4.35-5.55); RED CELL DISTRIBUTION WIDTH 14.8 % (11.5-14.0); WHITE BLOOD COUNT 9.8 10^3/uL (4.0-10.5)
[2018-01-07 05:52] LABS: ANION GAP 5 (5-19); BLOOD UREA NITROGEN 23 mg/dL (7-20); CALCIUM 8.4 mg/dL (8.4-10.2); CARBON DIOXIDE 25 mmol/L (22-30); CHLORIDE 113 mmol/L (98-107); CHOLESTEROL 181.48 mg/dL (0-200); GLUCOSE 85 mg/dL (75-110); POTASSIUM 3.9 mmol/L (3.6-5.0); SODIUM 143.2 mmol/L (137-145); TRIGLYCERIDES 88 mg/dL (<150)
[2018-01-07 06:03] LABS: DIRECT LDL 120 mg/dL (<100)
[2018-01-07] MEDS: FAMOTIDINE 20 MG TABLET PO SCH ×2 (09:31→21:37)
[2018-01-07] MEDS: TORSEMIDE 20 MG TABLET PO SCH (09:31)
[2018-01-07] MEDS: DOCUSATE SODIUM 100 MG CAPSULE PO SCH ×2 (09:31→17:10)
[2018-01-07] MEDS: LOSARTAN POTASSIUM 50 MG TABLET PO SCH (09:31)
[2018-01-07] MEDS: ENOXAPARIN SODIUM INJ 40 MG/0.4 ML DISP.SYRIN SUBCUT SCH (09:32)
--- NOTE | 2018-01-07 12:51 | XCELERA REPORT ---
[address] [address] Transthoracic Echocardiogram Report Name: YAHIR PARSON Age: 62 yrs Gender: Male : 1955 Patient Status: Inpatient Patient Location: [place] [address]^A Study Date: 01/06/2018 02:59 PM Height: 72 in Weight: 220 lb BSA: 2.2 m2 Procedure: A two-dimensional transthoracic echocardiogram with color flow and Doppler was performed. Study Quality: Technically suboptimal. Images were not obtained from all of the standard acoustic windows due to the limited scope of the study. Reason For Study: ACUTE CONGESTIVE HEART FAILURE History: ACUTE CONGESTIVE HEART FAILURE. Ordering Physician: BISHOP VERNON Performed By: Lowell Martinez Interpretation Summary No True apical 2 chamber views obtained.Hence cannot comment on the apical anterior , the basal anterior, the basal inferior and apical inferior garcia.The mid anterior , the mid inferior and the rest of the LV garcia contract normally. .Normal LVEF is low normal at 55% in the limited views The left ventricle is normal in size. There is mild concentric left ventricular hypertrophy. The right ventricle is not well visualized secondary to technical limitations The left atrial size is normal. There is no evidence of mitral valve prolapse. There is no mitral valve stenosis. There is a mild amount of mitral regurgitation There is no aortic valve stenosis There is no LVOT obstruction. There is a trace amount of aortic regurgitation There is no tricuspid stenosis. There is a trace amount of tricuspid regurgitation Unable to calculate RVSP due lack of TR jet. The pulmonic valve is not well visualized. There is no pericardial effusion. MMode/2D Measurements & Calculations RVDd: 3.0 cm LVIDd: 5.4 cm FS: 21.7 % Ao root diam: 3.3 cm IVSd: 1.3 cm LVIDs: 4.2 cm EDV(Teich): 140.1 ml Ao root area: 8.6 cm2 LVPWd: 1.3 cm ESV(Teich): 79.2 ml LA dimension: 4.1 cm EF(Teich): 43.4 % LVOT diam: 2.0 cm LVOT area: 3.3 cm2 Doppler Measurements & Calculations MV E max lee: MV P1/2t max lee: Ao V2 max: LV V1 max P.6 cm/sec 116.4 cm/sec 88.0 cm/sec 2.1 mmHg MV A max lee: MV P1/2t: 87.1 msec Ao max P.1 mmHgLV V1 max: 45.4 cm/sec MVA(P1/2t): 2.5 cm2 BRITTNEY(V,D): 2.7 cm2 72.1 cm/sec MV E/A: 2.4 MV dec slope: 391.7 cm/sec2 MV dec time: 0.24 sec MR max lee: PA V2 max: MV P1/2t-pr_phl: 289.9 cm/sec 101.4 cm/sec 87.1 msec MR max PG: PA max P.1 mmHg 33.6 mmHg Left Ventricle The left ventricle is normal in size. There is mild concentric left ventricular hypertrophy. No True apical 2 chamber views obtained.Hence cannot comment on the apical anterior , the basal anterior, the basal inferior and apical inferior garcia.The mid anterior , the mid inferior and the rest of the LV garcia contract normally. .Normal LVEF is low normal at 55% in the limited views. Doppler measurements suggest normal left ventricular diastolic function. There is no thrombus. Right Ventricle The right ventricle is not well visualized secondary to technical limitations. Atria The right atrium is normal. The left atrial size is normal. Mitral Valve There is no evidence of mitral valve prolapse. There is no vegetation seen on the mitral valve. There is no mitral valve stenosis. There is a mild amount of mitral regurgitation. Aortic Valve There is no aortic valvular vegetation. There is no aortic valve stenosis. There is no LVOT obstruction. There is a trace amount of aortic regurgitation. Tricuspid Valve There is no tricuspid stenosis. There is a trace amount of tricuspid regurgitation. Unable to calculate RVSP due lack of TR jet. Pulmonic Valve The pulmonic valve is not well visualized. Great Vessels The aortic root is not well visualized but is probably normal size. Effusions There is no pericardial effusion. : BISHOP VERNON > Tea Sanon
--- NOTE | 2018-01-07 13:12 | PDOC PROGRESS REPORT ---
Subjective Progress Note for:: 01/07/18 Subjective:: YAHIR PARSON is a 62 year old male who presents to the emergency room with a one-week history of gradually worsening dyspnea and swelling of his bilateral lower extremities. His dyspnea is markedly worsened by activity and somewhat relieved by rest. He assesses his dyspnea as severe at this time because he is currently so short of breath that he has a hard time sitting up. His swelling has been severe with making the use of footware very uncomfortable and restricting his ability to ambulate. The swelling affects his bilateral feet and both of his lower legs up to just above his knees. He has had the associated symptoms of somnolence episodes when he is trying to sit up (his sister notes that he will just "nod off" at times. He denies chest pain, palpitations, orthopnea, diaphoresis, nausea, vomiting, abdominal pain, constipation, diarrhea, dyspepsia, dysuria, back pain, neck pain, jaw pain, arm pain, headache and rash. He denies prior similar episodes and has not identified any other aggravating or ameliorating factors for his dyspnea or swelling. He gives a past medical history positive for diabetes and hypertension but he is indigent and is only taking Humulin 70/30 insulin for his diabetes twice a day as it is provided to him by the [facility]. In the emergency room he was found to have a markedly elevated BNP at 11,800 with a creatinine of 1.66 and mildly elevated cardiac enzymes. He will be admitted to the hospitalist service on the medical floor for treatment of his acute congestive heart failure and further evaluation of his cardiac status. 01/07/18: Patient is showing significant improvement in his breathing as well as a dramatic reduction in his lower extremity edema. He states he feels a lot better than he did yesterday and comments that his breathing is better than it has been in a long time and is swelling his significantly decreased and he is able to stand up without having discomfort in his feet. He also noticed that he has less somnolence and seems to be more alert and mentally keen than he was yesterday and for several days previous. His blood sugars reflect reasonably good control of his diabetes and his renal status is essentially unchanged. His echocardiogram was suboptimal but revealed a ejection fraction of 55% and concentric left ventricular wall hypertrophy. His cardiac enzymes are elevated but serially showed no significant increase or decrease, thus demonstrating no acute cardiac changes but changes in the enzymes probably due to his chronic renal failure. He will be continued on his current regiment and if his improvement continues at the present pace he will be able to be discharged tomorrow, a thought which pleases him greatly. Reason For Visit: ACUTE CONGESTIVE HEART FAILURE Physical Exam Vital Signs: Temp Pulse Resp BP Pulse Ox 97.3 F 59 L 20 132/66 H 100 01/07/18 08:00 01/07/18 08:00 01/07/18 08:00 01/07/18 08:00 01/07/18 08:00 Intake & Output 01/05/18 01/06/18 01/07/18 23:59 23:59 23:59 Intake Total 466 Balance 466 Weight 105.5 kg 105.5 kg General appearance: PRESENT: no acute distress, cooperative, well-developed, well-nourished Head exam: PRESENT: atraumatic, normocephalic Eye exam: ABSENT: conjunctival injection, periorbital swelling, scleral icterus Ear exam: PRESENT: normal external ear exam. ABSENT: drainage Mouth exam: PRESENT: neck supple, tongue midline Neck exam: ABSENT: thyromegaly, tracheal deviation Respiratory exam: PRESENT: clear to auscultation ochoa, symmetrical, unlabored Cardiovascular exam: PRESENT: RRR. ABSENT: clicks, gallop, rubs Vascular exam: PRESENT: normal capillary refill. ABSENT: pallor GI/Abdominal exam: PRESENT: normal bowel sounds, soft Rectal exam: PRESENT: deferred Extremities exam: PRESENT: other - Trace to 1+ I lateral pretibial edema is noted (significantly improved from yesterday's exam). ABSENT: joint swelling, tenderness Neurological exam: PRESENT: alert, oriented to person, oriented to place, oriented to time, oriented to situation, CN II-XII grossly intact. ABSENT: motor sensory deficit Psychiatric exam: PRESENT: appropriate affect, normal mood Skin exam: ABSENT: jaundice, rash, urticaria Results Laboratory Results: 01/07/18 04:52 01/07/18 04:52 01/07/18 01/07/18 01/07/18 04:52 04:52 04:52 WBC 9.8 RBC 4.05 L Hgb 12.6 L Hct 36.7 L MCV 91 MCH 31.2 MCHC 34.4 RDW 14.8 H Plt Count 313 Sodium 143.2 Potassium 3.9 Chloride 113 H Carbon Dioxide 25 Anion Gap 5 BUN 23 H Creatinine 1.78 H Est GFR ( Amer) 47 L Est GFR (Non-Af Amer) 39 L Glucose 85 Calcium 8.4 Magnesium 1.7 Triglycerides 88 Cholesterol 181.48 LDL Cholesterol Direct 120 H VLDL Cholesterol 18.0 HDL Cholesterol 40 TSH 2.91 01/06/18 01/06/18 01/07/18 19:30 19:30 01:23 Creatine Kinase 363 H CK-MB (CK-2) 6.37 H 6.20 H Troponin I 0.028 0.024 01/07/18 01:23 Creatine Kinase 306 H CK-MB (CK-2) Troponin I Impressions: Chest X-Ray 01/06/18 10:48 IMPRESSION: Bilateral pleural effusions, alveolar and interstitial edema worrisome for fluid overload or congestive failure. Bilateral basilar consolidation atelectasis versus pneumonia Venous Doppler Study 01/06/18 11:42 IMPRESSION: NO EVIDENCE OF DVT OR SVT IN THE LEFT LEG. Assessment & Plan - Diagnosis (1) Acute CHF (congestive heart failure) Qualifiers: Heart failure type: unspecified Qualified Code(s): I50.9 - Heart failure, unspecified Is this a current diagnosis for this admission?: Yes Plan: Serial cardiac enzymes will be obtained, as will serial EKGs. An echocardiogram will be performed and will arrange for Dr. Sanon to interpret it. Medical regiment utilizing metoprolol XL, Spironolactone, losartan, torsemide and possibly a statin agent if appropriate after obtaining a lipid profile. In assessment of overall thyroid function utilizing a TSH will be obtained as will regular daily lab work of a CBC, BMP and magnesium level. With patient's initial dyspnea and marked edema he is significantly uncomfortable and it would warrant treating him with low-dose morphine to aid in his comfort and also help to resolve his heart failure. As such he will receive morphine sulfate 2 mg IV stat and this can be repeated every 4 hours as needed for severe dyspnea or restlessness and discomfort. 01/07/18: Patient will be continued on his current therapeutic regiment with the addition of Lipitor 40 mg p.o. nightly daily due to his elevated LDL. A baseline BNP will be obtained in the morning and if he continues to do well he will be discharged tomorrow. (2) DM II (diabetes mellitus, type II), controlled Qualifiers: Diabetes mellitus application support lead insulin use: with fdc use Diabetes mellitus complication status: with kidney complications Diabetes mellitus complication detail: with chronic kidney disease Chronic kidney disease stage : stage 3 (moderate) Qualified Code(s): E11.22 - Type 2 diabetes mellitus with diabetic chronic kidney disease; N18.3 - Chronic kidney disease, stage 3 ( moderate); N18.3 - Chronic kidney disease, stage 3 (moderate); N18.3 - Chronic kidney disease, stage 3 (moderate); Z79.4 - ip counsel (current) use of insulin; Z79.4 - ip counsel (current) use of insulin; Z79.4 - [facility] (current) use of insulin; Z79.4 - ip counsel (current) use of insulin Is this a current diagnosis for this admission?: Yes Plan: Patient will be continued on his current Lantus 40 units subcu daily. He will be placed on a sliding scale with lispro insulin and before meals and at bedtime blood sugars to monitor his diabetes. Additionally hemoglobin A1c will be obtained in a.m. 01/07/18: Patient's hemoglobin A1c is 6.0 and his blood sugars have been very well controlled on his current regimen, which will therefore be continued. (3) HTN (hypertension), malignant Is this a current diagnosis for this admission?: Yes Plan: Patient's blood pressure will be addressed in time is to address his congestive heart failure utilizing a combination of agents including metoprolol extended release 200 mg p.o. daily, losartan 100 mg p.o. daily, spironolactone 25 mg p.o. daily, torsemide 40 mg p.o. daily. Daily lab values will be obtained to monitor the potential therapeutic side effects for depletion of vital electrolytes. Renal functions will also be reassessed daily. 01/07/18: Patient's blood pressure has been very well controlled with his congestive heart failure regimen initiated yesterday. He will be continued on this regimen through the remainder of his hospitalization and he will be discharged on the same medications with a possible reduction in his torsemide dose to 10 mg daily as a starting point for chronic therapy. (4) CKD (chronic kidney disease) stage 3, GFR 30-59 ml/min Is this a current diagnosis for this admission?: Yes Plan: Patient has chronic renal failure stage IIIb. The patient's medication regimen is adjusted such that his SHE inhibitor (lisinopril) is discontinued in favor of the use of an ARB (losartan) in hopes that we may see some slight improvement in his renal function. His renal functions will be monitored on a daily basis throughout his hospital course. 01/07/18: Patient's creatinine increased slightly overnight with extensive diuresis noted. Consideration will be given to reducing his diuretic dosage of torsemide from 40 mg daily to 10 mg daily at the time of discharge but he will be continued on his current regimen during the remainder of his hospital course. We will continue to follow daily laboratory evaluations. - Time Time Spent with patient: 25-34 minutes Smoking Cessation Education: 3 to 10 minutes Anticipated discharge: Home Within: within 24 hours
[2018-01-07] MEDS ORDERED: NICOTINE 21 MG/24 HR PATCH.TD24 TD PRN (14:52)
[2018-01-07] MEDS ORDERED: LOSARTAN POTASSIUM 50 MG TABLET PO ONE (17:08)
[2018-01-07] MEDS: METOPROLOL SUCCINATE 50 MG TAB.SR.24H PO SCH (21:37)
[2018-01-07] MEDS: ATORVASTATIN CALCIUM 40 MG TABLET PO SCH (21:37)
[2018-01-07] MEDS ORDERED: INSULIN GLARGINE,HUM.REC.ANLOG 1,000 UNIT/10 ML UNIT SUBCUT SCH (22:00)
[2018-01-07] MEDS ORDERED: LORAZEPAM INJ 2 MG/1 ML VIAL IV ONE (23:45)
[2018-01-08] MEDS ORDERED: LORAZEPAM INJ 2 MG/1 ML VIAL IV ONE (05:00)
[2018-01-08 07:09] LABS: HEMOGLOBIN 12.3 g/dL (13.5-17.0); MEAN CORPUSCULAR HEMOGLOBIN 30.5 pg (27.0-33.4); MEAN CORPUSCULAR HGB CONC 33.4 g/dL (32.0-36.0); MEAN CORPUSCULAR VOLUME 92 fl (80-97); PLATELET COUNT 320 10^3/uL (150-450); RED BLOOD COUNT 4.04 10^6/uL (4.35-5.55); RED CELL DISTRIBUTION WIDTH 14.8 % (11.5-14.0); WHITE BLOOD COUNT 10.6 10^3/uL (4.0-10.5)
[2018-01-08 07:37] LABS: ANION GAP 9 (5-19); BLOOD UREA NITROGEN 34 mg/dL (7-20); CALCIUM 8.5 mg/dL (8.4-10.2); CARBON DIOXIDE 24 mmol/L (22-30); CHLORIDE 109 mmol/L (98-107); POTASSIUM 3.8 mmol/L (3.6-5.0); SODIUM 142.1 mmol/L (137-145)
[2018-01-08 07:48] LABS: GLUCOSE 40 mg/dL (75-110)
[2018-01-08] MEDS: FAMOTIDINE 20 MG TABLET PO SCH ×2 (09:47→21:16)
[2018-01-08] MEDS: TORSEMIDE 20 MG TABLET PO SCH ×2 (09:47→17:48)
[2018-01-08] MEDS: ENOXAPARIN SODIUM INJ 40 MG/0.4 ML DISP.SYRIN SUBCUT SCH (09:48)
[2018-01-08] MEDS: LOSARTAN POTASSIUM 50 MG TABLET PO SCH (09:48)
[2018-01-08] MEDS: DOCUSATE SODIUM 100 MG CAPSULE PO SCH ×2 (10:08→17:13)
[2018-01-08] MEDS ORDERED: INSULIN GLARGINE,HUM.REC.ANLOG 1,000 UNIT/10 ML UNIT SUBCUT SCH (16:56)
--- NOTE | 2018-01-08 17:14 | PDOC PROGRESS REPORT ---
Subjective Progress Note for:: 01/08/18 Subjective:: YAHIR PARSON is a 62 year old male who presents to the emergency room with a one-week history of gradually worsening dyspnea and swelling of his bilateral lower extremities. His dyspnea is markedly worsened by activity and somewhat relieved by rest. He assesses his dyspnea as severe at this time because he is currently so short of breath that he has a hard time sitting up. His swelling has been severe with making the use of footware very uncomfortable and restricting his ability to ambulate. The swelling affects his bilateral feet and both of his lower legs up to just above his knees. He has had the associated symptoms of somnolence episodes when he is trying to sit up (his sister notes that he will just "nod off" at times. He denies chest pain, palpitations, orthopnea, diaphoresis, nausea, vomiting, abdominal pain, constipation, diarrhea, dyspepsia, dysuria, back pain, neck pain, jaw pain, arm pain, headache and rash. He denies prior similar episodes and has not identified any other aggravating or ameliorating factors for his dyspnea or swelling. He gives a past medical history positive for diabetes and hypertension but he is indigent and is only taking Humulin 70/30 insulin for his diabetes twice a day as it is provided to him by the [facility]. In the emergency room he was found to have a markedly elevated BNP at 11,800 with a creatinine of 1.66 and mildly elevated cardiac enzymes. He will be admitted to the hospitalist service on the medical floor for treatment of his acute congestive heart failure and further evaluation of his cardiac status. 01/07/18: Patient is showing significant improvement in his breathing as well as a dramatic reduction in his lower extremity edema. He states he feels a lot better than he did yesterday and comments that his breathing is better than it has been in a long time and is swelling his significantly decreased and he is able to stand up without having discomfort in his feet. He also noticed that he has less somnolence and seems to be more alert and mentally keen than he was yesterday and for several days previous. His blood sugars reflect reasonably good control of his diabetes and his renal status is essentially unchanged. His echocardiogram was suboptimal but revealed a ejection fraction of 55% and concentric left ventricular wall hypertrophy. His cardiac enzymes are elevated but serially showed no significant increase or decrease, thus demonstrating no acute cardiac changes but changes in the enzymes probably due to his chronic renal failure. He will be continued on his current regiment and if his improvement continues at the present pace he will be able to be discharged tomorrow, a thought which pleases him greatly. 01/08/18: Yahir states he feels significantly better again today he is able to eat well and enjoying the food feels like his swelling is reducing and his breathing is better when he is up and active. Staff reported that he had been having some episodes of decreased mentation and somnolence however his alertness was very good at the time of my evaluation. The episodes of somnolence and decreased mental alertness were noted prior to his admission and were part of his chief complaint. I discussed with Yahir briefly that his renal functions were slightly increased this morning and we would have to decrease the amount of diuretic he is being given and he is understanding of this and realizes that his diuresis may be less brisk than it has been up to this point. Reason For Visit: ACUTE CONGESTIVE HEART FAILURE Physical Exam Vital Signs: Temp Pulse Resp BP Pulse Ox 97.3 F 68 16 125/83 97 01/08/18 16:00 01/08/18 16:00 01/08/18 16:00 01/08/18 16:00 01/08/18 16:00 Intake & Output 01/06/18 01/07/18 01/08/18 23:59 23:59 23:59 Intake Total 1301 240 Balance 1301 240 Weight 105.5 kg 105.5 kg 104.6 kg General appearance: PRESENT: no acute distress, cooperative Head exam: PRESENT: atraumatic, normocephalic Eye exam: ABSENT: conjunctival injection, periorbital swelling, scleral icterus Ear exam: PRESENT: normal external ear exam. ABSENT: drainage Mouth exam: PRESENT: neck supple, tongue midline Neck exam: ABSENT: thyromegaly, tracheal deviation Respiratory exam: PRESENT: clear to auscultation ochao, symmetrical, unlabored Cardiovascular exam: PRESENT: RRR. ABSENT: clicks, gallop, rubs Vascular exam: PRESENT: normal capillary refill. ABSENT: pallor GI/Abdominal exam: PRESENT: normal bowel sounds, soft Rectal exam: PRESENT: deferred Extremities exam: PRESENT: +1 edema - Bilateral pretibial pitting edema continues at about 1+ on exam. ABSENT: joint swelling, pedal edema Musculoskeletal exam: PRESENT: ambulatory. ABSENT: deformity, dislocation Neurological exam: PRESENT: alert, oriented to person, oriented to place, oriented to time, oriented to situation, CN II-XII grossly intact. ABSENT: motor sensory deficit Psychiatric exam: PRESENT: appropriate affect, normal mood Skin exam: ABSENT: jaundice, rash, urticaria Results Laboratory Results: 01/08/18 05:36 01/08/18 05:36 01/08/18 01/08/18 05:36 05:36 WBC 10.6 H RBC 4.04 L Hgb 12.3 L Hct 37.0 L MCV 92 MCH 30.5 MCHC 33.4 RDW 14.8 H Plt Count 320 Sodium 142.1 Potassium 3.8 Chloride 109 H Carbon Dioxide 24 Anion Gap 9 BUN 34 H Creatinine 2.29 H Est GFR ( Amer) 35 L Est GFR (Non-Af Amer) 29 L Glucose 40 L* Calcium 8.5 Magnesium 1.7 01/06/18 01/06/18 01/07/18 19:30 19:30 01:23 Creatine Kinase 363 H CK-MB (CK-2) 6.37 H 6.20 H Troponin I 0.028 0.024 01/07/18 01:23 Creatine Kinase 306 H CK-MB (CK-2) Troponin I Impressions: Chest X-Ray 01/06/18 10:48 IMPRESSION: Bilateral pleural effusions, alveolar and interstitial edema worrisome for fluid overload or congestive failure. Bilateral basilar consolidation atelectasis versus pneumonia Venous Doppler Study 01/06/18 11:42 IMPRESSION: NO EVIDENCE OF DVT OR SVT IN THE LEFT LEG. Assessment & Plan - Diagnosis (1) Acute CHF (congestive heart failure) Qualifiers: Heart failure type: unspecified Qualified Code(s): I50.9 - Heart failure, unspecified Is this a current diagnosis for this admission?: Yes Plan: Serial cardiac enzymes will be obtained, as will serial EKGs. An echocardiogram will be performed and will arrange for Dr. Sanon to interpret it. Medical regiment utilizing metoprolol XL, Spironolactone, losartan, torsemide and possibly a statin agent if appropriate after obtaining a lipid profile. In assessment of overall thyroid function utilizing a TSH will be obtained as will regular daily lab work of a CBC, BMP and magnesium level. With patient's initial dyspnea and marked edema he is significantly uncomfortable and it would warrant treating him with low-dose morphine to aid in his comfort and also help to resolve his heart failure. As such he will receive morphine sulfate 2 mg IV stat and this can be repeated every 4 hours as needed for severe dyspnea or restlessness and discomfort. 01/07/18: Patient will be continued on his current therapeutic regiment with the addition of Lipitor 40 mg p.o. nightly daily due to his elevated LDL. A baseline BNP will be obtained in the morning and if he continues to do well he will be discharged tomorrow. 01/08/18: Yahir will be held for 1 more day while we decrease his Lantus dose to 20 units subcu daily and also decrease his Demadex to 10 mg p.o. daily we will observe closely to make sure that he is not having significant decreases in his mentation or increased confusion. If he continues to do reasonably well without an observable problem he will be discharged tomorrow. His respiratory status is very good and his blood pressure is well controlled and though he still has some pretibial edema this may take several days to resolve and should not require hospitalization for treatment with oral medications. (2) DM II (diabetes mellitus, type II), controlled Qualifiers: Diabetes mellitus longwall foreman insulin use: with longwall foreman use Diabetes mellitus complication status: with kidney complications Diabetes mellitus complication detail: with chronic kidney disease Chronic kidney disease stage : stage 3 (moderate) Qualified Code(s): E11.22 - Type 2 diabetes mellitus with diabetic chronic kidney disease; N18.3 - Chronic kidney disease, stage 3 ( moderate); N18.3 - Chronic kidney disease, stage 3 (moderate); N18.3 - Chronic kidney disease, stage 3 (moderate); Z79.4 - intermediate designer (current) use of insulin; Z79.4 - group home (current) use of insulin; Z79.4 - intermediate designer (current) use of insulin; Z79.4 - group home (current) use of insulin Is this a current diagnosis for this admission?: Yes Plan: Patient will be continued on his current Lantus 40 units subcu daily. He will be placed on a sliding scale with lispro insulin and before meals and at bedtime blood sugars to monitor his diabetes. Additionally hemoglobin A1c will be obtained in a.m. 01/07/18: Patient's hemoglobin A1c is 6.0 and his blood sugars have been very well controlled on his current regimen, which will therefore be continued. 01/08/18: Yahir his fasting blood sugar this morning was 40 and therefore his Lantus will be decreased to 10 units subcu daily and should he continue to have low blood sugars or problems with his mentation or level of responsiveness the Lantus could be discontinued altogether. With a hemoglobin A1c of 6.0 his treatment is possibly overly aggressive. (3) HTN (hypertension), malignant Is this a current diagnosis for this admission?: Yes Plan: Patient's blood pressure will be addressed in time is to address his congestive heart failure utilizing a combination of agents including metoprolol extended release 200 mg p.o. daily, losartan 100 mg p.o. daily, spironolactone 25 mg p.o. daily, torsemide 40 mg p.o. daily. Daily lab values will be obtained to monitor the potential therapeutic side effects for depletion of vital electrolytes. Renal functions will also be reassessed daily. 01/07/18: Patient's blood pressure has been very well controlled with his congestive heart failure regimen initiated yesterday. He will be continued on this regimen through the remainder of his hospitalization and he will be discharged on the same medications with a possible reduction in his torsemide dose to 10 mg daily as a starting point for chronic therapy. 01/08/18: Yahir' Demadex will be reduced to 10 mg p.o. daily. He should probably be discharged on this dosage and that can be reassessed on the follow-up visit with his primary care provider as to whether or not he should have his Demadex dose reduced further. (4) CKD (chronic kidney disease) stage 3, GFR 30-59 ml/min Is this a current diagnosis for this admission?: Yes Plan: Patient has chronic renal failure stage IIIb. The patient's medication regimen is adjusted such that his SHE inhibitor (lisinopril) is discontinued in favor of the use of an ARB (losartan) in hopes that we may see some slight improvement in his renal function. His renal functions will be monitored on a daily basis throughout his hospital course. 01/07/18: Patient's creatinine increased slightly overnight with extensive diuresis noted. Consideration will be given to reducing his diuretic dosage of torsemide from 40 mg daily to 10 mg daily at the time of discharge but he will be continued on his current regimen during the remainder of his hospital course. We will continue to follow daily laboratory evaluations. 01/08/18: I will be reducing Yahir' torsemide dose to 10 mg as mentioned above in preparation for his discharge as early as tomorrow. - Time Time Spent with patient: 25-34 minutes Medications reviewed and adjusted accordingly: Yes Anticipated discharge: Home, Home with Homehealth
[2018-01-08] MEDS: ATORVASTATIN CALCIUM 40 MG TABLET PO SCH (21:16)
[2018-01-08] MEDS: METOPROLOL SUCCINATE 50 MG TAB.SR.24H PO SCH (21:16)
[2018-01-08] MEDS ORDERED: INSULIN GLARGINE,HUM.REC.ANLOG 300 UNIT/3 ML INSULN.PEN SUBCUT SCH (22:00)
[2018-01-09 05:07] LABS: HEMATOCRIT 33.1 % (37.9-51.0); HEMOGLOBIN 11.3 g/dL (13.5-17.0); MEAN CORPUSCULAR HEMOGLOBIN 30.6 pg (27.0-33.4); MEAN CORPUSCULAR HGB CONC 34.1 g/dL (32.0-36.0); MEAN CORPUSCULAR VOLUME 90 fl (80-97); PLATELET COUNT 226 10^3/uL (150-450); RED BLOOD COUNT 3.69 10^6/uL (4.35-5.55); RED CELL DISTRIBUTION WIDTH 14.5 % (11.5-14.0); WHITE BLOOD COUNT 9.1 10^3/uL (4.0-10.5)
[2018-01-09 05:27] LABS: ANION GAP 7 (5-19); BLOOD UREA NITROGEN 39 mg/dL (7-20); CARBON DIOXIDE 24 mmol/L (22-30); CHLORIDE 110 mmol/L (98-107); GLUCOSE 42 mg/dL (75-110); POTASSIUM 3.4 mmol/L (3.6-5.0); SODIUM 140.6 mmol/L (137-145)
[2018-01-09] MEDS ORDERED: DEXTROSE 50%-WATER SYRINGE 12.5 GM/25 ML DOSE IV PRN (07:10)
[2018-01-09] MEDS ORDERED: DEXTROSE 50%-WATER SYRINGE 25 GM/50 ML DOSE IV PRN (07:10)
[2018-01-09] MEDS ORDERED: DEXTROSE 40% GEL 15 GM TUBE X 2 PO PRN (07:10)
[2018-01-09] MEDS ORDERED: DEXTROSE 40% GEL 15 GM TUBE PO PRN (07:10)
[2018-01-09] MEDS ORDERED: GLUCAGON,HUMAN RECOMB 1 MG INJ IM PRN (07:10)
[2018-01-09] MEDS: DOCUSATE SODIUM 100 MG CAPSULE PO SCH ×2 (09:00→17:12)
[2018-01-09] MEDS: FAMOTIDINE 20 MG TABLET PO SCH ×2 (09:02→22:09)
[2018-01-09] MEDS: TORSEMIDE 20 MG TABLET PO SCH (09:02)
[2018-01-09] MEDS: ENOXAPARIN SODIUM INJ 40 MG/0.4 ML DISP.SYRIN SUBCUT SCH (09:03)
[2018-01-09] MEDS: LOSARTAN POTASSIUM 50 MG TABLET PO SCH (09:03)
--- NOTE | 2018-01-09 20:31 | PDOC PROGRESS REPORT ---
Subjective Progress Note for:: 01/09/18 Subjective:: The patient feels good today. Patient has no complaints despite episodes of hypoglycemia. His edema is improving and he denies discomfort or shortness of breath. His diuretic therapy is being adjusted based on his renal function. Reason For Visit: ACUTE CONGESTIVE HEART FAILURE Physical Exam Vital Signs: Temp Pulse Resp BP Pulse Ox 97.2 F 70 16 133/68 H 99 01/09/18 16:06 01/09/18 16:06 01/09/18 16:06 01/09/18 16:06 01/09/18 16:06 Intake & Output 01/08/18 01/09/18 01/10/18 06:59 06:59 06:59 Intake Total 1075 450 Balance 1075 450 Weight 104.6 kg 105.3 kg General appearance: PRESENT: no acute distress, cooperative, well-developed, well-nourished Head exam: PRESENT: atraumatic, normocephalic Eye exam: PRESENT: conjunctiva pink, EOMI. ABSENT: scleral icterus Ear exam: PRESENT: normal external ear exam Mouth exam: PRESENT: moist Neck exam: PRESENT: full ROM. ABSENT: carotid bruit Respiratory exam: PRESENT: clear to auscultation ochoa, symmetrical. ABSENT: accessory muscle use, rales, rhonchi, wheezes Cardiovascular exam: PRESENT: RRR, +S1, +S2 GI/Abdominal exam: PRESENT: normal bowel sounds, soft. ABSENT: distended, tenderness Extremities exam: PRESENT: +2 edema Musculoskeletal exam: PRESENT: ambulatory Neurological exam: PRESENT: alert, awake, CN II-XII grossly intact Psychiatric exam: PRESENT: appropriate affect, normal mood Skin exam: PRESENT: dry, intact, warm. ABSENT: cyanosis, rash Results Laboratory Results: 01/09/18 04:15 01/09/18 04:15 01/09/18 01/09/18 04:15 04:15 WBC 9.1 RBC 3.69 L Hgb 11.3 L Hct 33.1 L MCV 90 MCH 30.6 MCHC 34.1 RDW 14.5 H Plt Count 226 Sodium 140.6 Potassium 3.4 L Chloride 110 H Carbon Dioxide 24 Anion Gap 7 BUN 39 H Creatinine 1.95 H Est GFR ( Amer) 42 L Est GFR (Non-Af Amer) 35 L Glucose 42 L Calcium 8.0 L Magnesium 1.6 01/06/18 01/06/18 01/07/18 19:30 19:30 01:23 Creatine Kinase 363 H CK-MB (CK-2) 6.37 H 6.20 H Troponin I 0.028 0.024 01/07/18 01:23 Creatine Kinase 306 H CK-MB (CK-2) Troponin I Impressions: Chest X-Ray 01/06/18 10:48 IMPRESSION: Bilateral pleural effusions, alveolar and interstitial edema worrisome for fluid overload or congestive failure. Bilateral basilar consolidation atelectasis versus pneumonia Venous Doppler Study 01/06/18 11:42 IMPRESSION: NO EVIDENCE OF DVT OR SVT IN THE LEFT LEG. Assessment & Plan - Diagnosis (1) Acute CHF (congestive heart failure) Qualifiers: Heart failure type: unspecified Qualified Code(s): I50.9 - Heart failure, unspecified Is this a current diagnosis for this admission?: Yes Plan: Review of the echocardiogram shows mildly decreased left ventricular ejection fraction. His pulmonary symptoms are improved. He is still on torsemide. We will continue to monitor his serum potassium with adjustments in his diuretic dosing. His serial troponins were negative and from a cardiac standpoint he is improved and likely stable. (2) DM II (diabetes mellitus, type II), controlled Qualifiers: Diabetes mellitus terminal block assembler insulin use: with intermediate use Diabetes mellitus complication status: with kidney complications Diabetes mellitus complication detail: with chronic kidney disease Chronic kidney disease stage : stage 3 (moderate) Qualified Code(s): E11.22 - Type 2 diabetes mellitus with diabetic chronic kidney disease; N18.3 - Chronic kidney disease, stage 3 ( moderate); N18.3 - Chronic kidney disease, stage 3 (moderate); N18.3 - Chronic kidney disease, stage 3 (moderate); Z79.4 - intermediate card tender (current) use of insulin; Z79.4 - intermediate card tender (current) use of insulin; Z79.4 - intermediate card tender (current) use of insulin; Z79.4 - half-way (current) use of insulin Is this a current diagnosis for this admission?: Yes Plan: The patient's serum creatinine continues to improve. It is now 1.95 with an estimated GFR of 35. He appears to be on a stable torsemide dose. Unfortunately his decreased Lantus dose still cause some hypoglycemia today. I have decreased his Lantus to 16 units from 20 units and will monitor his serum glucose levels. His hemoglobin A1c on admission was 6.0. He may be able to wean off of his insulin altogether. (3) HTN (hypertension), malignant Is this a current diagnosis for this admission?: Yes Plan: With his current medications the patient's blood pressure is reasonably controlled. (4) CKD (chronic kidney disease) stage 3, GFR 30-59 ml/min Is this a current diagnosis for this admission?: Yes Plan: With his underlying chronic stage III kidney failure the patient is actually back to baseline. As noted above he will likely continue on the same regimen that he is currently receiving. - Time Time Spent with patient: 25-34 minutes Medications reviewed and adjusted accordingly: Yes Anticipated discharge: Home
[2018-01-09] MEDS: ATORVASTATIN CALCIUM 40 MG TABLET PO SCH (22:09)
[2018-01-09] MEDS: METOPROLOL SUCCINATE 50 MG TAB.SR.24H PO SCH (22:09)
[2018-01-09] MEDS: INSULIN GLARGINE,HUM.REC.ANLOG 300 UNIT/3 ML INSULN.PEN SUBCUT SCH (22:11)
[2018-01-10] MEDS ORDERED: LORAZEPAM INJ 2 MG/1 ML VIAL IV ONE (02:00)
[2018-01-10] MEDS: FAMOTIDINE 20 MG TABLET PO SCH ×2 (10:57→22:32)
[2018-01-10] MEDS: DOCUSATE SODIUM 100 MG CAPSULE PO SCH ×2 (10:57→18:41)
[2018-01-10] MEDS: LOSARTAN POTASSIUM 50 MG TABLET PO SCH (10:57)
[2018-01-10] MEDS: ENOXAPARIN SODIUM INJ 40 MG/0.4 ML DISP.SYRIN SUBCUT SCH (11:04)
[2018-01-10] MEDS: TORSEMIDE 20 MG TABLET PO SCH (11:16)
[2018-01-10] MEDS ORDERED: QUETIAPINE FUMARATE 25 MG TABLET PO PRN (11:38)
--- NOTE | 2018-01-10 11:55 | PDOC PROGRESS REPORT ---
Subjective Progress Note for:: 01/10/18 Subjective:: The patient feels good today. Patient has no complaints despite episodes of hypoglycemia. His edema is improving and he denies discomfort or shortness of breath. His diuretic therapy is being adjusted based on his renal function. 01/10 The patient had a bad night last night. He was quite agitated and restless. He remains in restraints this morning. He is somewhat sleepy this morning but appears comfortable. Reason For Visit: ACUTE CONGESTIVE HEART FAILURE Physical Exam Vital Signs: Temp Pulse Resp BP Pulse Ox 97.6 F 69 16 152/78 H 95 01/10/18 08:43 01/10/18 08:43 01/10/18 08:43 01/10/18 08:43 01/10/18 08:43 Intake & Output 01/09/18 01/10/18 01/11/18 06:59 06:59 06:59 Intake Total 450 118 Balance 450 118 Weight 105.3 kg 107.3 kg General appearance: PRESENT: no acute distress, well-developed, well-nourished, other - Sleepy this morning. Head exam: PRESENT: atraumatic, normocephalic Eye exam: PRESENT: conjunctiva pink. ABSENT: scleral icterus Ear exam: PRESENT: normal external ear exam Mouth exam: PRESENT: dry mucosa Neck exam: PRESENT: full ROM. ABSENT: carotid bruit, lymphadenopathy, tenderness Respiratory exam: PRESENT: clear to auscultation ochoa. ABSENT: rales, rhonchi, wheezes Cardiovascular exam: PRESENT: RRR, +S1, +S2 Pulses: PRESENT: normal radial pulses, normal dorsalis pedis pul GI/Abdominal exam: PRESENT: normal bowel sounds, soft. ABSENT: tenderness Rectal exam: PRESENT: deferred Extremities exam: PRESENT: pedal edema, other - Trace edema bilateral lower extremities Musculoskeletal exam: PRESENT: normal inspection Neurological exam: PRESENT: other - Quite sleepy this morning. Psychiatric exam: PRESENT: flat affect Skin exam: PRESENT: dry, normal color, other - New skin tear on his plummer Results Laboratory Results: 01/09/18 04:15 01/09/18 04:15 01/06/18 01/06/18 01/07/18 19:30 19:30 01:23 Creatine Kinase 363 H CK-MB (CK-2) 6.37 H 6.20 H Troponin I 0.028 0.024 01/07/18 01:23 Creatine Kinase 306 H CK-MB (CK-2) Troponin I Impressions: Chest X-Ray 01/06/18 10:48 IMPRESSION: Bilateral pleural effusions, alveolar and interstitial edema worrisome for fluid overload or congestive failure. Bilateral basilar consolidation atelectasis versus pneumonia Venous Doppler Study 01/06/18 11:42 IMPRESSION: NO EVIDENCE OF DVT OR SVT IN THE LEFT LEG. Assessment & Plan - Diagnosis (1) Acute CHF (congestive heart failure) Qualifiers: Heart failure type: systolic Qualified Code(s): I50.21 - Acute systolic ( congestive) heart failure Is this a current diagnosis for this admission?: Yes Plan: The patient is on torsemide 20 mg daily. I have added potassium supplementation for his slightly low potassium level (3.4). As previously noted his left ventricular ejection fraction is slightly low at 55%. He is also on a beta-dorene as well as angiotensin receptor dorene. (2) DM II (diabetes mellitus, type II), controlled Qualifiers: Diabetes mellitus long term care phlebotomist insulin use: with long term care phlebotomist use Diabetes mellitus complication status: with kidney complications Diabetes mellitus complication detail: with chronic kidney disease Chronic kidney disease stage : stage 3 (moderate) Qualified Code(s): E11.22 - Type 2 diabetes mellitus with diabetic chronic kidney disease; N18.3 - Chronic kidney disease, stage 3 ( moderate); N18.3 - Chronic kidney disease, stage 3 (moderate); N18.3 - Chronic kidney disease, stage 3 (moderate); Z79.4 - care home (current) use of insulin; Z79.4 - termite exterminator helper (current) use of insulin; Z79.4 - termite exterminator helper (current) use of insulin; Z79.4 - care home (current) use of insulin Is this a current diagnosis for this admission?: Yes Plan: Patient appears to be stable with regard to his new Lantus dosing of 16 units. We will continue his sliding scale coverage as well. (3) HTN (hypertension), malignant Is this a current diagnosis for this admission?: Yes Plan: Patient's blood pressures are improved and almost at goal. We will continue his torsemide, losartan and metoprolol. (4) CKD (chronic kidney disease) stage 3, GFR 30-59 ml/min Is this a current diagnosis for this admission?: Yes Plan: The patient's chronic kidney failure is back to baseline at stage III. We will continue his current medications. - Time Time Spent with patient: 15-24 minutes Medications reviewed and adjusted accordingly: Yes Anticipated discharge: Home
[2018-01-10] MEDS ORDERED: POTASSIUM CHLORIDE 10 MEQ CAPSULE.ER PO SCH (12:30)
[2018-01-10] MEDS: POTASSIUM CHLORIDE 10 MEQ CAPSULE.ER PO SCH (13:32)
[2018-01-10 16:31] LABS: ANION GAP 7 (5-19); BLOOD UREA NITROGEN 38 mg/dL (7-20); CALCIUM 8.2 mg/dL (8.4-10.2); CARBON DIOXIDE 26 mmol/L (22-30); CHLORIDE 107 mmol/L (98-107); GLUCOSE 103 mg/dL (75-110); POTASSIUM 4.4 mmol/L (3.6-5.0); SODIUM 139.7 mmol/L (137-145)
[2018-01-10] MEDS ORDERED: HALOPERIDOL LACTATE INJ 5 MG/1 ML VIAL IV PRN (18:08)
[2018-01-10] MEDS: ATORVASTATIN CALCIUM 40 MG TABLET PO SCH (22:32)
[2018-01-10] MEDS: QUETIAPINE FUMARATE 25 MG TABLET PO SCH (22:32)
[2018-01-10] MEDS: METOPROLOL SUCCINATE 50 MG TAB.SR.24H PO SCH (22:32)
[2018-01-10] MEDS: INSULIN GLARGINE,HUM.REC.ANLOG 300 UNIT/3 ML INSULN.PEN SUBCUT SCH (22:33)
[2018-01-11 06:18] LABS: ALANINE AMINOTRANSFERASE 30 U/L (21-72); ALBUMIN 2.5 g/dL (3.5-5.0); ALKALINE PHOSPHATASE 175 U/L (38-126); ANION GAP 10 (5-19); ASPARTATE AMINO TRANSFERASE 30 U/L (17-59); BILIRUBIN,DIRECT 0.1 mg/dL (0.0-0.4); BILIRUBIN,TOTAL 0.5 mg/dL (0.2-1.3); BLOOD UREA NITROGEN 36 mg/dL (7-20); CALCIUM 8.2 mg/dL (8.4-10.2); CARBON DIOXIDE 23 mmol/L (22-30); CHLORIDE 109 mmol/L (98-107); GLUCOSE 97 mg/dL (75-110); POTASSIUM 3.9 mmol/L (3.6-5.0); SODIUM 142.3 mmol/L (137-145); TOTAL PROTEIN 5.3 g/dL (6.3-8.2)
[2018-01-11] MEDS: FAMOTIDINE 20 MG TABLET PO SCH ×2 (10:28→21:17)
[2018-01-11] MEDS: LOSARTAN POTASSIUM 50 MG TABLET PO SCH (10:28)
[2018-01-11] MEDS: DOCUSATE SODIUM 100 MG CAPSULE PO SCH ×2 (10:28→17:23)
[2018-01-11] MEDS: POTASSIUM CHLORIDE 10 MEQ CAPSULE.ER PO SCH (10:29)
[2018-01-11] MEDS: ENOXAPARIN SODIUM INJ 40 MG/0.4 ML DISP.SYRIN SUBCUT SCH (10:30)
[2018-01-11] MEDS: TORSEMIDE 20 MG TABLET PO SCH (10:30)
--- NOTE | 2018-01-11 15:12 | RADIOLOGY REPORT (SQ) ---
EXAM DESCRIPTION: CT HEAD WITHOUT COMPLETED DATE/TIME: 01/11/2018 2:43 pm REASON FOR STUDY: Altered mental status COMPARISON: None. TECHNIQUE: Axial images acquired through the brain without intravenous contrast. Images reviewed wi th bone, brain and subdural windows. Additional sagittal and coronal reconstructions were generated. Images stored on PACS. All CT scanners at this facility use dose modulation, iterative reconstruction, and/or weight based d osing when appropriate to reduce radiation dose to as low as reasonably achievable (ALARA). [facility]: Dose Right [facility]: CareDose [facility]: Dose Right [facility]: Teradose 4D [facility]: Smart Evi RADIATION DOSE: CT Rad equipment meets quality standard of care and radiation dose reduction techniq ues were employed. CTDIvol: 48.6 mGy. DLP: 954 mGy-cm. mGy. LIMITATIONS: None. FINDINGS: VENTRICLES: Normal size and contour. CEREBRUM: Encephalomalacia in the left posterior parietal area. No acute infarction. No hemorrhage. No midline shift. No mass. Normal almaraz/white matter differentiation. No areas of low density in th e white matter. CEREBELLUM: No masses. No hemorrhage. No alteration of density. No evidence for acute infarction. EXTRAAXIAL SPACES: No fluid collections. No masses. ORBITS AND GLOBE: No intra- or extraconal masses. Normal contour of globe without masses. CALVARIUM: No fracture. PARANASAL SINUSES: Mucous retention cyst in the left maxillary sinus. SOFT TISSUES: No mass or hematoma. OTHER: No other significant finding. 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 Mild left maxillary sinus disease. No acute in tracranial imaging findings. EVIDENCE OF ACUTE STROKE: NO. COMMENT: Quality ID # [id number]: Final reports with documentation of one or more dose reduction techniques (e.g., Automated exposure control, adjustment of the mA and/or kV according to patient size, use of iterative reconstruction technique) TECHNICAL DOCUMENTATION: JOB ID: [id number] [employer]- All Rights Reserved Reading location - IP/workstation name: [email or web address]
--- NOTE | 2018-01-11 15:55 | PSYCHOLOGICAL NOTE ---
Psych Note - Psych Note Date seen by psych provider: 01/11/18 Time seen by psych provider: 09:30 Psych Note: Reason for Consult: medication recommendations Patient was admitted to the hospitalist service on the medical floor for treatment of his acute congestive heart failure and further evaluation of his cardiac status. Head CT today 01/11/2018 indicates the cerebrum has encephalomalacia in the left posterior parietal area. Clinician met with patient. Patient was not orientated was unable to disclose the date day the week the month or the year. Patient was able to correctly identify his birthday as 1955 and stated that the seventh month is September. He is unable to identify where he currently is and states that the city and county are both [place] and the state is [facility]. Patient was able to correctly identify the current president however not the last 3. When it came to abstract rational level thinking he was able to correctly identify 1 of the 3 questions. Patient was also able to execute immediate and 1 minute recall for memory however was unable to do the 5-minute recall. Patient was unable to answer the executive functioning, sequencing and switching questions. For safety questions he was able to correctly identify 911 however when asked if the bathroom was flooding the first thing he would do was be to turn off the power. Patient was able to state that he is able to do his ADLs and stated that he likes to cook fish and shrimp however then fell asleep during the evaluation. Patient was able to be re-awoken and identified taking insulin for his diabetes but was unable to identify any other medications he is supposed to take. Patient is currently in restraints because of violent behavior so was unable to conduct executive functioning, planning, visual spatial organizational abilities, attention and sequencing abilities questions. Medication recommendations per [facility]'s contracted psychiatrist Dr. 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 Medication recommendations have been provided. Patient can be re-seen when medically stable to determine level of orientation; please reconsult if needed. It is recommended the patient follow-up with neurology. Dr. Meza was consulted and the care management this patient; attending physician is agreement with recommendations and disposition.
[2018-01-11] MEDS: ATORVASTATIN CALCIUM 40 MG TABLET PO SCH (21:17)
[2018-01-11] MEDS: METOPROLOL SUCCINATE 50 MG TAB.SR.24H PO SCH (21:18)
[2018-01-11] MEDS: INSULIN GLARGINE,HUM.REC.ANLOG 300 UNIT/3 ML INSULN.PEN SUBCUT SCH (21:18)
[2018-01-11] MEDS: QUETIAPINE FUMARATE 25 MG TABLET PO SCH (21:25)
--- NOTE | 2018-01-12 08:09 | PDOC PROGRESS REPORT ---
Subjective Progress Note for:: 01/11/18 Subjective:: The patient continues to be confused and quite agitated at times requiring restraints. Reason For Visit: ACUTE CONGESTIVE HEART FAILURE Physical Exam Vital Signs: Temp Pulse Resp BP Pulse Ox 97.6 F 65 13 154/68 H 97 01/11/18 23:55 01/11/18 23:55 01/11/18 23:55 01/11/18 23:55 01/11/18 23:55 Intake & Output 01/11/18 01/12/18 01/13/18 06:59 06:59 06:59 Intake Total 358 1160 Output Total 400 Balance 358 760 Weight 108.7 kg 107.9 kg General appearance: PRESENT: no acute distress, disheveled, obese, well- developed Head exam: PRESENT: normocephalic, other Ear exam: PRESENT: normal external ear exam Mouth exam: PRESENT: moist Neck exam: PRESENT: full ROM. ABSENT: tenderness, thyromegaly Respiratory exam: PRESENT: clear to auscultation ochoa, symmetrical. ABSENT: rales, rhonchi, wheezes Cardiovascular exam: PRESENT: RRR, +S1, +S2 GI/Abdominal exam: PRESENT: normal bowel sounds, soft. ABSENT: distended, tenderness Neurological exam: PRESENT: altered, oriented to person. ABSENT: oriented to place, oriented to time, oriented to situation Psychiatric exam: PRESENT: flat affect Skin exam: PRESENT: dry, intact, warm. ABSENT: cyanosis, rash Results Laboratory Results: 01/09/18 04:15 01/11/18 05:26 01/06/18 01/06/18 01/07/18 19:30 19:30 01:23 Creatine Kinase 363 H CK-MB (CK-2) 6.37 H 6.20 H Troponin I 0.028 0.024 NT-Pro-B Natriuret Pep 01/07/18 01/11/18 01:23 05:26 Creatine Kinase 306 H CK-MB (CK-2) Troponin I NT-Pro-B Natriuret Pep 15970 H Impressions: Chest X-Ray 01/06/18 10:48 IMPRESSION: Bilateral pleural effusions, alveolar and interstitial edema worrisome for fluid overload or congestive failure. Bilateral basilar consolidation atelectasis versus pneumonia Venous Doppler Study 01/06/18 11:42 IMPRESSION: NO EVIDENCE OF DVT OR SVT IN THE LEFT LEG. 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 Mild left maxillary sinus disease. No acute intracranial imaging findings. EVIDENCE OF ACUTE STROKE: NO. Assessment & Plan - Diagnosis (1) Acute psychosis associated with endocrine, metabolic, or cerebrovascular disorder Is this a current diagnosis for this admission?: Yes Plan: The patient has developed acute psychosis with memory loss, confusion and agitated sometimes aggressive behavior. Psychiatry has seen the patient. I have instituted their medication recommendations of Depakote and BuSpar. The patient lives alone with his mother and in his current condition that is not a safe discharge plan. He did have a CT scan that showed parietal encephalomalacia from likely a previous stroke indicating cerebrovascular disease. He may have had underlying mild dementia that is been exacerbated by his critical illness. I will continue to work with discharge planning and psychiatry to stabilize the patient for possible placement versus discharge to home. (2) Acute CHF (congestive heart failure) Qualifiers: Heart failure type: systolic Qualified Code(s): I50.21 - Acute systolic ( congestive) heart failure Is this a current diagnosis for this admission?: Yes Plan: The patient is on torsemide 20 mg daily. I have added potassium supplementation for his slightly low potassium level (3.4). As previously noted his left ventricular ejection fraction is slightly low at 55%. He is also on a beta-dorene as well as angiotensin receptor dorene. He still has a slightly positive fluid balance with mildly elevated systolic blood pressure possibly due to his agitation. At this point I will likely increase his beta- dorene therapy. (3) DM II (diabetes mellitus, type II), controlled Qualifiers: Diabetes mellitus alf insulin use: with alf use Diabetes mellitus complication status: with kidney complications Diabetes mellitus complication detail: with chronic kidney disease Chronic kidney disease stage : stage 3 (moderate) Qualified Code(s): E11.22 - Type 2 diabetes mellitus with diabetic chronic kidney disease; N18.3 - Chronic kidney disease, stage 3 ( moderate); N18.3 - Chronic kidney disease, stage 3 (moderate); N18.3 - Chronic kidney disease, stage 3 (moderate); Z79.4 - intermediate card tender (current) use of insulin; Z79.4 - intermediate card tender (current) use of insulin; Z79.4 - intermediate card tender (current) use of insulin; Z79.4 - intermediate card tender (current) use of insulin Is this a current diagnosis for this admission?: Yes Plan: Patient appears to be stable with regard to his new Lantus dosing of 16 units. We will continue his sliding scale coverage as well. I will try to decrease his Lantus dose if possible. His fingerstick glucoses have been stable. (4) HTN (hypertension), malignant Is this a current diagnosis for this admission?: Yes Plan: Patient's blood pressures are improved and almost at goal. We will continue his torsemide, losartan and metoprolol. As noted above will likely increase his metoprolol slightly to try and get his systolic pressure to goal. (5) CKD (chronic kidney disease) stage 3, GFR 30-59 ml/min Is this a current diagnosis for this admission?: Yes Plan: The patient's chronic kidney failure is back to baseline at stage III. We will continue his current medications. If we need to adjust his torsemide will need to monitor his renal function for changes. He is tolerating the angiotensin receptor dorene without adverse effect. - Time Time Spent with patient: 35 or more minutes Disposition: Discharge planning will be seeing the patient. Disposition is going to be difficult with his mental status changes. See discussion above.
[2018-01-12] MEDS: DOCUSATE SODIUM 100 MG CAPSULE PO SCH ×2 (09:07→17:11)
[2018-01-12] MEDS: POTASSIUM CHLORIDE 10 MEQ CAPSULE.ER PO SCH (09:10)
[2018-01-12] MEDS: BUSPIRONE HCL 10 MG TABLET PO SCH ×2 (09:10→21:54)
[2018-01-12] MEDS: DIVALPROEX SODIUM 250 MG TAB.SR.24H PO SCH ×2 (09:10→17:34)
[2018-01-12] MEDS: CLONIDINE HCL 0.1 MG TABLET PO PRN ×2 (09:10→21:55)
[2018-01-12] MEDS: FAMOTIDINE 20 MG TABLET PO SCH ×2 (09:10→21:54)
[2018-01-12] MEDS: LOSARTAN POTASSIUM 50 MG TABLET PO SCH (09:10)
[2018-01-12] MEDS: ENOXAPARIN SODIUM INJ 40 MG/0.4 ML DISP.SYRIN SUBCUT SCH (09:11)
[2018-01-12] MEDS: TORSEMIDE 20 MG TABLET PO SCH (09:12)
[2018-01-12] MEDS ORDERED: HALOPERIDOL LACTATE INJ 5 MG/1 ML VIAL IM PRN (16:32)
--- NOTE | 2018-01-12 21:21 | PDOC PROGRESS REPORT ---
Subjective Progress Note for:: 01/12/18 Subjective:: 01/11/2018-the patient continues to be confused and quite agitated at times requiring restraints. 01/12/2018-the patient is remarkably better today. He was oriented to time and place. Staff reports no agitated episodes. Reason For Visit: ACUTE CONGESTIVE HEART FAILURE Physical Exam Vital Signs: Temp Pulse Resp BP Pulse Ox 97.6 F 68 17 147/77 H 96 01/12/18 19:15 01/12/18 19:15 01/12/18 19:15 01/12/18 19:15 01/12/18 19:15 Intake & Output 01/11/18 01/12/18 01/13/18 06:59 06:59 06:59 Intake Total 358 1160 738 Output Total 400 Balance 358 760 738 Weight 108.7 kg 107.9 kg General appearance: PRESENT: no acute distress, cooperative Head exam: PRESENT: atraumatic, normocephalic Ear exam: PRESENT: normal external ear exam Mouth exam: PRESENT: moist Neck exam: PRESENT: full ROM. ABSENT: JVD Respiratory exam: PRESENT: clear to auscultation ochoa, unlabored. ABSENT: rales , rhonchi, wheezes Cardiovascular exam: PRESENT: RRR, +S1, +S2. ABSENT: systolic murmur GI/Abdominal exam: PRESENT: normal bowel sounds, soft. ABSENT: distended, tenderness Extremities exam: PRESENT: pedal edema - Trace. ABSENT: calf tenderness Musculoskeletal exam: PRESENT: ambulatory Neurological exam: PRESENT: alert, awake, oriented to person, oriented to place , oriented to time, oriented to situation Psychiatric exam: PRESENT: appropriate affect, normal mood Skin exam: PRESENT: other - Pigment deposition and mild erythema consistent with chronic venous insufficiency. Results Laboratory Results: 01/09/18 04:15 01/11/18 05:26 01/06/18 01/06/18 01/07/18 19:30 19:30 01:23 Creatine Kinase 363 H CK-MB (CK-2) 6.37 H 6.20 H Troponin I 0.028 0.024 NT-Pro-B Natriuret Pep 01/07/18 01/11/18 01:23 05:26 Creatine Kinase 306 H CK-MB (CK-2) Troponin I NT-Pro-B Natriuret Pep 19058 H Impressions: Chest X-Ray 01/06/18 10:48 IMPRESSION: Bilateral pleural effusions, alveolar and interstitial edema worrisome for fluid overload or congestive failure. Bilateral basilar consolidation atelectasis versus pneumonia Venous Doppler Study 01/06/18 11:42 IMPRESSION: NO EVIDENCE OF DVT OR SVT IN THE LEFT LEG. 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 Mild left maxillary sinus disease. No acute intracranial imaging findings. EVIDENCE OF ACUTE STROKE: NO. Assessment & Plan - Diagnosis (1) Acute psychosis associated with endocrine, metabolic, or cerebrovascular disorder Is this a current diagnosis for this admission?: Yes Plan: 01/11/2018-the patient has developed acute psychosis with memory loss, confusion and agitated sometimes aggressive behavior. Psychiatry has seen the patient. I have instituted their medication recommendations of Depakote and BuSpar. The patient lives alone with his mother and in his current condition that is not a safe discharge plan. He did have a CT scan that showed parietal encephalomalacia from likely a previous stroke indicating cerebrovascular disease. He may have had underlying mild dementia that is been exacerbated by his critical illness. I will continue to work with discharge planning and psychiatry to stabilize the patient for possible placement versus discharge to home. 01/12/2018-the patient exhibits a dramatic improvement today. Psychiatry's medication recommendations were instituted last night. It is possible that the Zyprexa was contributing to his confused state. We will continue the Depakote and BuSpar and if he continues to be stable he may likely go home tomorrow. I did ask the patient again today, when he was quite clear, if there is any history of stroke. Again he denied this. The encephalomalacia in the parietal lobe could be from an old head injury. (2) Acute CHF (congestive heart failure) Qualifiers: Heart failure type: systolic Qualified Code(s): I50.21 - Acute systolic ( congestive) heart failure Is this a current diagnosis for this admission?: Yes Plan: 01/11/2018-the patient is on torsemide 20 mg daily. I have added potassium supplementation for his slightly low potassium level (3.4). As previously noted his left ventricular ejection fraction is slightly low at 55%. He is also on a beta-dorene as well as angiotensin receptor dorene. He still has a slightly positive fluid balance with mildly elevated systolic blood pressure possibly due to his agitation. At this point I will likely increase his beta- dorene therapy. 01/12/2018-the patient is doing quite well with regard to his congestive heart failure. He will remain on his current medication regimen. (3) DM II (diabetes mellitus, type II), controlled Qualifiers: Diabetes mellitus correction insulin use: with long goods drier use Diabetes mellitus complication status: with kidney complications Diabetes mellitus complication detail: with chronic kidney disease Chronic kidney disease stage : stage 3 (moderate) Qualified Code(s): E11.22 - Type 2 diabetes mellitus with diabetic chronic kidney disease; N18.3 - Chronic kidney disease, stage 3 ( moderate); N18.3 - Chronic kidney disease, stage 3 (moderate); N18.3 - Chronic kidney disease, stage 3 (moderate); Z79.4 - rodent exterminator (current) use of insulin; Z79.4 - skilled nursing (current) use of insulin; Z79.4 - skilled nursing (current) use of insulin; Z79.4 - rodent exterminator (current) use of insulin Is this a current diagnosis for this admission?: Yes Plan: 01/11/2018-patient appears to be stable with regard to his new Lantus dosing of 16 units. We will continue his sliding scale coverage as well. I will try to decrease his Lantus dose if possible. His fingerstick glucoses have been stable. 01/12/2018-the patient exhibits reasonable fingerstick glucose results with adequate glucose control on his current dose of Lantus. This does should be effective however when the patient discharges he may likely be noncompliant with his diet. (4) HTN (hypertension), malignant Is this a current diagnosis for this admission?: Yes Plan: 01/11/2018-patient's blood pressures are improved and almost at goal. We will continue his torsemide, losartan and metoprolol. As noted above will likely increase his metoprolol slightly to try and get his systolic pressure to goal. 01/12/2018-it is possible that fluctuations in the patient's blood pressure are related to his emotional state. I believe his current regimen provides adequate blood pressure control. Continue the same regimen at discharge. (5) CKD (chronic kidney disease) stage 3, GFR 30-59 ml/min Is this a current diagnosis for this admission?: Yes Plan: 01/11/2018-the patient's chronic kidney failure is back to baseline at stage III. We will continue his current medications. If we need to adjust his torsemide will need to monitor his renal function for changes. He is tolerating the angiotensin receptor dorene without adverse effect. 01/12/2018-patient appears to be back at his baseline. His GFR remains in the 30-40 range. - Time Time Spent with patient: 15-24 minutes Medications reviewed and adjusted accordingly: Yes Anticipated discharge: Home Within: within 48 hours
[2018-01-12] MEDS: INSULIN GLARGINE,HUM.REC.ANLOG 300 UNIT/3 ML INSULN.PEN SUBCUT SCH (21:54)
[2018-01-12] MEDS: METOPROLOL SUCCINATE 50 MG TAB.SR.24H PO SCH (21:55)
[2018-01-12] MEDS: ATORVASTATIN CALCIUM 40 MG TABLET PO SCH (22:07)
[2018-01-13 05:21] LABS: ALANINE AMINOTRANSFERASE 26 U/L (21-72); ALBUMIN 2.4 g/dL (3.5-5.0); ALKALINE PHOSPHATASE 159 U/L (38-126); ANION GAP 10 (5-19); ASPARTATE AMINO TRANSFERASE 21 U/L (17-59); BILIRUBIN,DIRECT 0.2 mg/dL (0.0-0.4); BILIRUBIN,TOTAL 0.4 mg/dL (0.2-1.3); BLOOD UREA NITROGEN 37 mg/dL (7-20); CALCIUM 8.1 mg/dL (8.4-10.2); CARBON DIOXIDE 25 mmol/L (22-30); CHLORIDE 107 mmol/L (98-107); GLUCOSE 143 mg/dL (75-110); POTASSIUM 4.1 mmol/L (3.6-5.0); SODIUM 142.4 mmol/L (137-145); TOTAL PROTEIN 5.2 g/dL (6.3-8.2)
[2018-01-13] MEDS: DOCUSATE SODIUM 100 MG CAPSULE PO SCH (09:08)
[2018-01-13] MEDS: BUSPIRONE HCL 10 MG TABLET PO SCH (09:35)
[2018-01-13] MEDS: LOSARTAN POTASSIUM 50 MG TABLET PO SCH (09:35)
[2018-01-13] MEDS: TORSEMIDE 20 MG TABLET PO SCH (09:36)
[2018-01-13] MEDS: DIVALPROEX SODIUM 250 MG TAB.SR.24H PO SCH (09:36)
[2018-01-13] MEDS: FAMOTIDINE 20 MG TABLET PO SCH (09:36)
[2018-01-13] MEDS: POTASSIUM CHLORIDE 10 MEQ CAPSULE.ER PO SCH (09:36)
[2018-01-13] MEDS: ENOXAPARIN SODIUM INJ 40 MG/0.4 ML DISP.SYRIN SUBCUT SCH (09:38)
[2018-01-13 09:56] LABS: ABSOLUTE EOSINOPHILS # (AUTO) 0.7 10^3/uL (0.0-0.6); ABSOLUTE LYMPHOCYTES (AUTO) 1.8 10^3/uL (0.5-4.7); ABSOLUTE MONOCYTES (AUTO) 0.8 10^3/uL (0.1-1.4); BASOPHILS % (AUTO) 0.2 % (0-2); EOSINOPHILS % (AUTO) 8.3 % (0-6); HEMATOCRIT 33.5 % (37.9-51.0); HEMOGLOBIN 11.5 g/dL (13.5-17.0); LYMPHOCYTES % (AUTO) 21.2 % (13-45); MEAN CORPUSCULAR HEMOGLOBIN 30.8 pg (27.0-33.4); MEAN CORPUSCULAR HGB CONC 34.3 g/dL (32.0-36.0); MEAN CORPUSCULAR VOLUME 90 fl (80-97); MONOCYTES % (AUTO) 9.9 % (3-13); PLATELET COUNT 231 10^3/uL (150-450); RED BLOOD COUNT 3.73 10^6/uL (4.35-5.55); RED CELL DISTRIBUTION WIDTH 14.3 % (11.5-14.0); SEGMENTED NEUTROPHILS % (AUTO) 60.4 % (42-78); TOTAL CELLS COUNTED % (AUTO) 100 %; WHITE BLOOD COUNT 8.3 10^3/uL (4.0-10.5)
--- NOTE | 2018-01-13 12:07 | PSYCHOLOGICAL NOTE ---
Psych Note - Psych Note Date seen by psych provider: 01/13/18 Time seen by psych provider: 10:35 Psych Note: Reason for consult: Medication Recommendations Clinician conducted check in with patient. Patient greeted this Clinician upon entry into the room. Patient was sitting up in the chair watching TV. Patient was able to identify who he was, where he was located, where he lived and the day of the week. Patient plans to discharge home with his mother. Patient also has a sister that lives in the [facility] and will be checking on him and provides support. Patient was alert and oriented to person, place and time. Patient was able to maintain good eye contact. Mood was euthymic. Intact reality based presentation i.e. organized and linear thought process. Intellectual abilities appear to be within the average range. Attention and concentration are fair. Insight, impulse control are fair. Conversational speech within normal, tone and prosody. Medication recommendations per [facility]'s contracted psychiatrist Dr. 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 Medication recommendations have been provided. Patient was re-evaluated to determine level of orientation. It is recommended the patient follow-up with neurology. Dr. Meza was consulted and the care management this patient; attending physician is agreement with recommendations and disposition.
[2018-01-13 16:17] VITALS: BP 154/68
--- NOTE | 2018-01-13 16:18 | PDOC DISCHARGE SUMMARY ---
General - Admit/Disc Date/PCP Admission Date/Primary Care Provider: 01/06/18 14:23 Discharge Date: 01/13/18 - Discharge Diagnosis (1) Acute psychosis associated with endocrine, metabolic, or cerebrovascular disorder Is this a current diagnosis for this admission?: Yes (2) CKD (chronic kidney disease) stage 3, GFR 30-59 ml/min Is this a current diagnosis for this admission?: Yes (3) DM II (diabetes mellitus, type II), controlled Is this a current diagnosis for this admission?: Yes (4) HTN (hypertension), malignant Is this a current diagnosis for this admission?: Yes - Additional Information Resuscitation Status: Full Code Discharge Diet: Cardiac, Diabetic Discharge Activity: Activity As Tolerated, Balance Activity w/Rest, Weigh Daily Prescriptions: Aspirin 81 mg PO DAILY #30 tab.chew Atorvastatin Calcium [Lipitor 40 mg Tablet] 40 mg PO QHS 30 Days #30 tablet Buspirone HCl [Buspar 10 mg Tablet] 10 mg PO Q12 #60 tablet Divalproex Sodium [Depakote ER 250 mg Tablet] 250 mg PO BID #60 tab.sr.24h Furosemide [Lasix 20 mg Tablet] 20 mg PO QAM #30 tablet Losartan Potassium [Cozaar 50 mg Tablet] 100 mg PO DAILY #30 tablet Metoprolol Succinate [Toprol Xl 50 mg Tab.sr] 200 mg PO QHS #30 tab.sr.24h Home Medications: Insulin Glargine,Hum.rec.anlog [Lantus] 40 unit SQ QHS 01/06/18 Aspirin 81 mg PO DAILY #30 tab.chew 01/13/18 Atorvastatin Calcium [Lipitor 40 mg Tablet] 40 mg PO QHS 30 Days #30 tablet Buspirone HCl [Buspar 10 mg Tablet] 10 mg PO Q12 #60 tablet 01/13/18 Divalproex Sodium [Depakote ER 250 mg Tablet] 250 mg PO BID #60 tab.sr.24h 01/13 Furosemide [Lasix 20 mg Tablet] 20 mg PO QAM #30 tablet 01/13/18 Insulin Lispro [Humalog Insulin (Lispro) 100 unit/mL] 0 - 12 unit SUBCUT ACHSP PRN unit 01/13/18 Losartan Potassium [Cozaar 50 mg Tablet] 100 mg PO DAILY #30 tablet 01/13/18 Metoprolol Succinate [Toprol Xl 50 mg Tab.sr] 200 mg PO QHS #30 tab.sr.24h 01/13 History of Present Illness History of Present Illness: YAHIR PARSON is a 62 year old male Hospital Course Hospital Course: YAHIR PARSON is a 62 year old male who presents to the emergency room with a one-week history of gradually worsening dyspnea and swelling of his bilateral lower extremities. His swelling has been severe with making the use of footware very uncomfortable and restricting his ability to ambulate. In the emergency room he was found to have a markedly elevated BNP at 11,800 with a creatinine of 1.66 and mildly elevated cardiac enzymes. Chest x-ray revealed mild congestion. Patient was admitted to the hospitalist service on the medical floor and treatment for acute congestive heart failure. He denies chest pain. Echocardiogram revealed normal normal EF at 55%. He was treated with torsemide diuresis and he is doing much better, breathing better, no lower extremity swelling, no orthopnea or PND. Patient also noted to have psychosis during this admission with memory loss, confusion, and agitation sometimes with aggressive behavior. Psychiatry service outpatient. CT scan of the head showed parietal encephalomalacia from likely a previous stroke indicating cerebrovascular disease. It was thought he may have had underlying mild dementia that was exacerbated by his critical illness. Psychiatry recommended Depakote and BuSpar. He is doing better now, has been cleared by psych who recommended also outpatient neurology evaluation/ follow-up. Patient is doing better, alert and oriented x3, and is being discharged in improved condition. He is to follow-up with his primary care physician within 1 week. He is also to follow-up with mental health clinic within 2 weeks. He is to follow-up with neurology within 1 month. See medications reconciliation for discharge medications. Patient also placed on aspirin 81 mg daily. Physical Exam Vital Signs: Temp Pulse Resp BP Pulse Ox 97.8 F 63 16 117/89 H 100 01/13/18 11:55 01/13/18 11:55 01/13/18 11:55 01/13/18 11:55 01/13/18 11:55 Intake & Output 01/12/18 01/13/18 01/14/18 06:59 06:59 06:59 Intake Total 1160 988 Output Total 400 Balance 760 988 Weight 107.9 kg 97.5 kg General appearance: PRESENT: no acute distress, cooperative Head exam: PRESENT: atraumatic, normocephalic Ear exam: PRESENT: normal external ear exam Mouth exam: PRESENT: moist Neck exam: PRESENT: full ROM. ABSENT: JVD Respiratory exam: PRESENT: clear to auscultation ochoa, unlabored. ABSENT: rales , rhonchi, wheezes Cardiovascular exam: PRESENT: RRR, +S1, +S2. ABSENT: systolic murmur GI/Abdominal exam: PRESENT: normal bowel sounds, soft. ABSENT: distended, tenderness Extremities exam: PRESENT: pedal edema - Trace. ABSENT: calf tenderness Musculoskeletal exam: PRESENT: ambulatory Neurological exam: PRESENT: alert, awake, oriented to person, oriented to place , oriented to time, oriented to situation Psychiatric exam: PRESENT: appropriate affect, normal mood Results Laboratory Results: 01/13/18 04:17 01/13/18 04:17 01/13/18 01/13/18 01/13/18 04:17 04:17 04:17 WBC 8.3 RBC 3.73 L Hgb 11.5 L Hct 33.5 L MCV 90 MCH 30.8 MCHC 34.3 RDW 14.3 H Plt Count 231 Seg Neutrophils % 60.4 Lymphocytes % 21.2 Monocytes % 9.9 Eosinophils % 8.3 H Basophils % 0.2 Absolute Neutrophils 5.0 Absolute Lymphocytes 1.8 Absolute Monocytes 0.8 Absolute Eosinophils 0.7 H Absolute Basophils 0.0 Sodium 142.4 Potassium 4.1 Chloride 107 Carbon Dioxide 25 Anion Gap 10 BUN 37 H Creatinine 1.75 H Est GFR ( Amer) 48 L Est GFR (Non-Af Amer) 40 L Glucose 143 H Calcium 8.1 L Total Bilirubin 0.4 AST 21 ALT 26 Alkaline Phosphatase 159 H Total Protein 5.2 L Albumin 2.4 L TSH 2.27 01/06/18 01/06/18 01/07/18 19:30 19:30 01:23 Creatine Kinase 363 H CK-MB (CK-2) 6.37 H 6.20 H Troponin I 0.028 0.024 NT-Pro-B Natriuret Pep 01/07/18 01/11/18 01:23 05:26 Creatine Kinase 306 H CK-MB (CK-2) Troponin I NT-Pro-B Natriuret Pep 27635 H Impressions: Chest X-Ray 01/06/18 10:48 IMPRESSION: Bilateral pleural effusions, alveolar and interstitial edema worrisome for fluid overload or congestive failure. Bilateral basilar consolidation atelectasis versus pneumonia Venous Doppler Study 01/06/18 11:42 IMPRESSION: NO EVIDENCE OF DVT OR SVT IN THE LEFT LEG. 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 Mild left maxillary sinus disease. No acute intracranial imaging findings. EVIDENCE OF ACUTE STROKE: NO. Qualifiers - * PATIENT BEING DISCHARGED WITH ANY OF THE FOLLOWING DIAGNOSIS: Heart Failure VTE patient discharged on overlapping Therapy?: Yes HF Pt being discharged on ACEI for LVEF less than 40%?: No Reason(s) for not prescribing ACEI:: Not indicated HF Pt being discharged on ARBS for LVEF less than 40%?: Yes HF Pt with Afib discharged with Warfarin?: Yes HF Pt discharged on evidence-based Beta Wendy:: Yes Plan Time Spent: Greater than 30 Minutes
== END 2018-01-13 16:10 | disposition home or self-care (01) | DRG 291 ==
LOC: ER 10:21 → EH 14:23 → 4N 16:06
PROVIDERS: ADMIT Emergency Medicine; ATTEND Emergency Medicine
DX: I13.0 Hypertensive heart and chronic kidney disease with heart failure and stage 1 through stage 4 chronic kidney disease, or unspecified chronic kidney disease (principal); I50.21 Acute systolic (congestive) heart failure; N18.3 Chronic kidney disease, stage 3 (moderate); E11.22 Type 2 diabetes mellitus with diabetic chronic kidney disease; E78.5 Hyperlipidemia, unspecified; F17.200 Nicotine dependence, unspecified, uncomplicated; I87.2 Venous insufficiency (chronic) (peripheral); F28 Other psychotic disorder not due to a substance or known physiological condition; Z79.4 Long term (current) use of insulin; Z83.3 Family history of diabetes mellitus; Z82.49 Family history of ischemic heart disease and other diseases of the circulatory system; Z78.1 Physical restraint status; Z23 Encounter for immunization
CPT/HCPCS: 36415; 70450; 71046; 80048; 80053; 80061; 80076; 80307; 81001; 82140; 82550; 82553; 82803; 82962; 83036; 83735; 83880; 84443; 84484; 85025; 85027; 85610; 90471; 90686; 93005; 93010; 93306; 93971; 96374; 96375; 99285; G0008; J1630; J1650; J1815; J1940; J2060; J2270; J3490

== ENCOUNTER 2018-02-22 10:12 | Inpatient (IN) | payer SELFPAY ==
--- NOTE | 2018-02-22 10:44 | ER Document Report ---
ED General - General Chief Complaint: High Blood Sugar Stated Complaint: BLOOD SUGAR ISSUE Time Seen by Provider: 02/22/18 10:18 Notes: 62-year-old male with history of CHF and diabetes was found with altered mental status at home. EMS was activated and found his sugar to be real low give the patient glucagon and dextrose. Give the patient repeated butter and jelly but he still felt strange and brought the patient here. Upon arrival here the patient's blood sugar has been doing well but he has been complaining of some shortness of breath he has a history of CHF and usually short of breath daily however he feels a little more so today. He denies any chest pain. He said he had some nausea earlier but denies vomiting. No chest pain. Says his dyspnea gets worse on exertion but is better with rest. States his legs have been swelling but again they do this from time to time chronically. TRAVEL OUTSIDE OF THE [place] IN LAST 30 DAYS: No - Related Data Allergies/Adverse Reactions: No Known Allergies Allergy (Verified 02/22/18 10:24) Past Medical History - Social History Smoking Status: Former Smoker Family History: None - Past Medical History Cardiac Medical History: Reports: Hx Hypercholesterolemia, Hx Hypertension Denies: Hx Atrial Fibrillation, Hx Congestive Heart Failure, Hx Coronary Artery Disease, Hx DVT, Hx Heart Attack, Hx Peripheral Vascular Disease, Hx Pulmonary Embolism, Hx Heart Murmur Pulmonary Medical History: Denies: Hx Asthma, Hx COPD, Hx Pneumonia, Hx Intubation, Hx Respiratory Failure, Hx Tuberculosis Neurological Medical History: Denies: Hx Seizures Endocrine Medical History: Reports: Hx Diabetes Mellitus Type 2. Denies: Hx Diabetes Mellitus Type 1, Hx Hyperthyroidism, Hx Hypothyroidism Renal/ Medical History: Denies: Hx Peritoneal Dialysis GI Medical History: Denies: Hx Cirrhosis, Hx Crohn's Disease, Hx Gastroesophageal Reflux Disease, Hx Hepatitis, Hx Ulcerative Colitis Musculoskeletal Medical History: Denies Hx Arthritis, Denies Hx Gout Skin Medical History: Denies Hx Eczema, Denies Hx Psoriasis Psychiatric Medical History: Denies: Hx Dementia, Hx Depression Infectious Medical History: Denies: Hx Hepatitis Past Surgical History: Denies: Hx Cardiac Catheterization, Hx Orthopedic Surgery , Hx Pacemaker, Hx Vascular Surgery - Immunizations Hx Diphtheria, Pertussis, Tetanus Vaccination: Yes Review of Systems - Review of Systems Cardiovascular: Orthopnea, Dyspnea, Edema. denies: Chest pain Respiratory: Cough, Short of breath Gastrointestinal: Nausea. denies: Diarrhea, Vomiting Neurological/Psychological: Lost consciousness. denies: Headaches -: Yes All other systems reviewed and negative Physical Exam - Vital signs Vitals: Pulse Ox 93 02/22/18 10:34 - Notes Notes: GENERAL_APPEARANCE: well_nourished, alert, cooperative VITALS: reviewed, see vital signs table. HEAD: no_swelling\tenderness on the head. EYES: PERRL, EOMI, conjunctiva_clear. NOSE: no_nasal_discharge. MOUTH: (-)decreased moisture. THROAT: no_tonsilar_inflammation, no_airway_obstruction. no_lymphadenopathy NECK: supple, no_neck_tenderness, (-)thyromegaly. BACK: no_back_tenderness. CHEST_WALL: no_chest_tenderness. LUNGS: no_wheezing, fine crackles in the bases, no_rhonchi, (-)accessory muscle use, good air exchange bilateral. HEART: normal_rate, normal_rhythm, normal_S1, normal_S2, (-)S3, (-)S4, no_ murmur, no_rub. ABDOMEN: soft, no_abd_tenderness, (-)guarding, (-)rebound, no_organomegaly, no _abd_masses. EXTREMITIES: good pulses in all_extremities, no_swelling\tenderness in the extremities, 2+_edema. SKIN: warm, dry, good_color, no_rash. MENTAL_STATUS: speech_clear, oriented_X_3, normal_affect, responds_ appropriately to questions. NEURO: Neg Motor or Sensory Deficits on exam, CN 2-12 intact, DTR 2+ symmetric x 4, No cerbellar signs Course - Re-evaluation Re-evalutation: 02/22/18 10:43 62-year-old male presents with low blood sugar. He is seems to be doing well here. He has had peanut butter and jelly. His sugar has stayed up he is feeling okay from that however the incident has left him a little more short of breath than usual he states he does have heart failure and has been admitted for this in the past. Does have some edema and some very mild crackles we will go ahead and work him up and continue to observe him. 02/22/18 14:31 The patient's blood sugar has stayed up however he does have an oxygen requirement. He requires 2 L to keep a sat above 90. The patient was given 80 mg of Lasix and nitroglycerin. We will continue to diurese him he has not diuresed very well here he does have renal insufficiency on his lab work. I do not think he would do well at home I spoke with the hospitalist service who is in agreement to bring him in continue diuresing him until he is able to unction without a oxygen source. - Vital Signs Vital signs: Temp Pulse Resp BP Pulse Ox 97.7 F 16 159/83 H 97 02/22/18 10:36 02/22/18 14:09 02/22/18 14:09 02/22/18 14:09 - Laboratory Result Diagrams: 02/22/18 11:02 02/22/18 11:02 Laboratory results interpreted by me: 02/22/18 02/22/18 02/22/18 10:34 11:02 11:02 WBC 11.4 H Hgb 13.1 L RDW 15.1 H Seg Neutrophils % 85.4 H Lymphocytes % 10.1 L Absolute Neutrophils 9.7 H Sodium 146.6 H Chloride 114 H BUN 26 H Creatinine 1.53 H Est GFR ( Amer) 56 L Est GFR (Non-Af Amer) 46 L Glucose 126 H POC Glucose 126 H Alkaline Phosphatase 184 H NT-Pro-B Natriuret Pep Total Protein 5.8 L Albumin 2.7 L 02/22/18 11:02 WBC Hgb RDW Seg Neutrophils % Lymphocytes % Absolute Neutrophils Sodium Chloride BUN Creatinine Est GFR ( Amer) Est GFR (Non-Af Amer) Glucose POC Glucose Alkaline Phosphatase NT-Pro-B Natriuret Pep 80494 H Total Protein Albumin Discharge - Discharge Clinical Impression: CHF (congestive heart failure) Condition: Good Disposition: ADMITTED INPATIENT Admitting Provider: Hospitalist Referrals: [facility] [Primary Care Provider] - Follow up as needed
[2018-02-22 11:15] LABS: ABSOLUTE EOSINOPHILS # (AUTO) 0.1 10^3/uL (0.0-0.6); ABSOLUTE LYMPHOCYTES (AUTO) 1.2 10^3/uL (0.5-4.7); ABSOLUTE MONOCYTES (AUTO) 0.4 10^3/uL (0.1-1.4); ABSOLUTE NEUT (AUTO) 9.7 10^3/uL (1.7-8.2); BASOPHILS % (AUTO) 0.2 % (0-2); EOSINOPHILS % (AUTO) 0.7 % (0-6); HEMATOCRIT 39.2 % (37.9-51.0); HEMOGLOBIN 13.1 g/dL (13.5-17.0); LYMPHOCYTES % (AUTO) 10.1 % (13-45); MEAN CORPUSCULAR HEMOGLOBIN 30.1 pg (27.0-33.4); MEAN CORPUSCULAR HGB CONC 33.5 g/dL (32.0-36.0); MEAN CORPUSCULAR VOLUME 90 fl (80-97); MONOCYTES % (AUTO) 3.6 % (3-13); PLATELET COUNT 268 10^3/uL (150-450); RED BLOOD COUNT 4.37 10^6/uL (4.35-5.55); RED CELL DISTRIBUTION WIDTH 15.1 % (11.5-14.0); SEGMENTED NEUTROPHILS % (AUTO) 85.4 % (42-78); TOTAL CELLS COUNTED % (AUTO) 100 %; WHITE BLOOD COUNT 11.4 10^3/uL (4.0-10.5)
[2018-02-22 11:21] LABS: PROTHROMBIN TIME 13.7 SEC (11.4-15.4)
[2018-02-22] MEDS ORDERED: IPRATROPIUM/ALBUTEROL 0.5-2.5 MG/3 ML AMPUL NEB ONE (11:34)
[2018-02-22 11:38] LABS: ALANINE AMINOTRANSFERASE 27 U/L (21-72); ALBUMIN 2.7 g/dL (3.5-5.0); ALKALINE PHOSPHATASE 184 U/L (38-126); ANION GAP 10 (5-19); ASPARTATE AMINO TRANSFERASE 35 U/L (17-59); BILIRUBIN,DIRECT 0.3 mg/dL (0.0-0.4); BILIRUBIN,TOTAL 0.3 mg/dL (0.2-1.3); BLOOD UREA NITROGEN 26 mg/dL (7-20); CALCIUM 8.4 mg/dL (8.4-10.2); CARBON DIOXIDE 23 mmol/L (22-30); CHLORIDE 114 mmol/L (98-107); GLUCOSE 126 mg/dL (75-110); POTASSIUM 3.9 mmol/L (3.6-5.0); SODIUM 146.6 mmol/L (137-145); TOTAL PROTEIN 5.8 g/dL (6.3-8.2)
--- NOTE | 2018-02-22 11:48 | EKG REPORT ---
SEVERITY:- ABNORMAL ECG - SINUS RHYTHM VENTRICULAR PREMATURE COMPLEX RIGHT BUNDLE BRANCH BLOCK : Confirmed by: Genaro Garcia 22-Feb-2018 11:47:33
[2018-02-22 11:54] LABS: TROPONIN I 0.079 ng/mL
--- NOTE | 2018-02-22 12:12 | RADIOLOGY REPORT (SQ) ---
EXAM DESCRIPTION: CHEST SINGLE VIEW COMPLETED DATE/TIME: 02/22/2018 11:25 am REASON FOR STUDY: sob COMPARISON: 01/06/2018 NUMBER OF VIEWS: One view. TECHNIQUE: Single frontal radiographic view of the chest acquired. LIMITATIONS: None. FINDINGS: LUNGS AND PLEURA: Interstitial edema. Small effusions, left greater than right. MEDIASTINUM AND HILAR STRUCTURES: No masses or contour abnormality. HEART AND VASCULATURE: Cardiac enlargement. Vascular congestion. BONES: No acute findings. HARDWARE: None in the chest. OTHER: No other significant finding. IMPRESSION: CHF. TECHNICAL DOCUMENTATION: JOB ID: [id number] [employer]- All Rights Reserved Reading location - IP/workstation name: [email or web address]
[2018-02-22] MEDS ORDERED: FUROSEMIDE INJ/PF 100 MG/10 ML SDV IV ONE (13:09)
[2018-02-22] MEDS ORDERED: NITROGLYCERIN 2% OINTMENT 1 GM PACKET TP ONE (13:09)
[2018-02-22] MEDS ORDERED: INSULIN REG, HUMAN 100 UNIT/ML 3 ML VIAL (PYX) SUBCUT PRN (15:18)
[2018-02-22] MEDS ORDERED: DEXTROSE 50%-WATER 25 GM/50 ML DISP.SYRIN IV PRN ×2 (15:18)
[2018-02-22] MEDS ORDERED: GLUCAGON,HUMAN RECOMB 1 MG INJ IM PRN (15:18)
[2018-02-22] MEDS ORDERED: DEXTROSE 40% GEL 15 GM TUBE PO PRN ×2 (15:18)
[2018-02-22] MEDS ORDERED: HEPARIN SOD (PORCINE) 5,000 UNIT/ML 1 ML SYRINGE SUBCUT SCH (15:30)
[2018-02-22] MEDS: HEPARIN SOD (PORCINE) 5,000 UNIT/ML 1 ML SYRINGE SUBCUT SCH ×2 (16:39→22:15)
[2018-02-22] MEDS: POTASSIUM CHLORIDE 10 MEQ CAPSULE.ER PO SCH (16:40)
--- NOTE | 2018-02-22 18:26 | PDOC H&P ---
History of Present Illness Admission Date/PCP: [facility] Patient complains of: SOB History of Present Illness: YAHIR PARSON is a 62 year old male with a past medical history of congestive heart failure, insulin-dependent diabetes mellitus and hypertension who presented with increasing shortness of breath. Patient says that she takes Lasix at home for his CHF. He says that because of insurance issues he was of his home medications for more than 2 weeks because he gets through [facility]. He says that over the past 5-6 days, he developed gradually progressive shortness of breath. He says he has chronic pedal edema but this also has been worsening in the past 5 days. He denies any chest pain, dizziness, nausea or vomiting. He says that around 3 AM this morning, she went to his living room to watch TV and was having increasing shortness of breath. He says he slept on his couch and was found by his mother on the floor this morning. He was brought into the ER and was noted to have a blood glucose of 26. He does say he takes 40 units of Lantus at night but does not check his sugars regularly. He was also noted to have significant crackles in both lung jacob and was hypoxic at 80% on room air. He was given glucose and was also given 80 mg of IV Lasix which significantly improved his breathing. Upon encounter, patient is in mild distress but says his breathing has significantly improved after the Lasix. He is saturating on 98% at rest on 4 L of nasal cannula but desaturates to 70% on exertion. He denies chest pain or palpitations. Chest x-ray shows pulmonary congestion and he has a BNP of 11,000. He also reports he has been having watery stools in the past 5 weeks. He denies abdominal pain, nausea or vomiting. Past Medical History Cardiac Medical History: Reports: Hyperlipidema, Hypertension Denies: Atrial Fibrillation, Congestive Heart Failure, Coronary Artery Disease, DVT, Myocardial Infarction, Peripheral Vascular Disease, Pulmonary Embolism, Heart Murmur Pulmonary Medical History: Denies: Asthma, Chronic Obstructive Pulmonary Disease (COPD), Intubation, Pneumonia, Respiratory Failure, Tuberculosis Neurological Medical History: Denies: Seizures Endocrine Medical History: Reports: Diabetes Mellitus Type 2 Denies: Diabetes Mellitus Type 1, Hyperthyroidism, Hypothyroidism GI Medical History: Denies: Cirrhosis, Crohn's Disease, Gastroesophageal Reflux Disease, Hepatitis, Ulcerative Colitis Musculoskeltal Medical History: Denies: Arthritis, Gout Skin Medical History: Denies: Eczema, Psoriasis Psychiatric Medical History: Denies: Dementia, Depression Hematology: Denies: Anemia, Hemophilia, Bleeding Tendencies Past Surgical History Past Surgical History: Denies: Cardiac Catheterization, Orthopedic Surgery, Pacemaker, Vascular Surgery Social History Smoking Status: Former Smoker Frequency of Alcohol Use: None Hx Recreational Drug Use: No Drugs: None Hx Prescription Drug Abuse: No Family History Family History: None Parental Family History Reviewed: Yes - No premature CAD Children Family History Reviewed: No Sibling(s) Family History Reviewed.: No Medication/Allergy Home Medications: Insulin Glargine,Hum.rec.anlog [Lantus] 40 unit SQ QHS 01/06/18 Aspirin 81 mg PO DAILY #30 tab.chew 01/13/18 Atorvastatin Calcium [Lipitor 40 mg Tablet] 40 mg PO QHS 30 Days #30 tablet Buspirone HCl [Buspar 10 mg Tablet] 10 mg PO Q12 #60 tablet 01/13/18 Divalproex Sodium [Depakote ER 250 mg Tablet] 250 mg PO BID #60 tab.sr.24h 01/13 Furosemide [Lasix 20 mg Tablet] 20 mg PO QAM #30 tablet 01/13/18 Insulin Lispro [Humalog Insulin (Lispro) 100 unit/mL] 0 - 12 unit SUBCUT ACHSP PRN unit 01/13/18 Losartan Potassium [Cozaar 50 mg Tablet] 100 mg PO DAILY #30 tablet 01/13/18 Metoprolol Succinate [Toprol Xl 50 mg Tab.sr] 200 mg PO QHS #30 tab.sr.24h 01/13 Allergies/Adverse Reactions: No Known Allergies Allergy (Verified 02/22/18 10:24) Review of Systems All systems: reviewed and no additional remarkable complaints except as stated - As mentioned in HPI Physical Exam Vital Signs: Temp Pulse Resp BP Pulse Ox 97.7 F 16 159/83 H 97 02/22/18 10:36 02/22/18 14:09 02/22/18 14:09 02/22/18 14:09 Intake & Output 02/21/18 02/22/18 02/23/18 06:59 06:59 06:59 Intake Total 120 Balance 120 Weight 220 lb Results Laboratory Results: 02/22/18 11:02 02/22/18 11:02 02/22/18 02/22/18 02/22/18 10:00 10:00 11:02 WBC Cancelled 11.4 H RBC Cancelled 4.37 Hgb Cancelled 13.1 L Hct Cancelled 39.2 MCV Cancelled 90 MCH Cancelled 30.1 MCHC Cancelled 33.5 RDW Cancelled 15.1 H Plt Count Cancelled 268 Seg Neutrophils % Cancelled 85.4 H Lymphocytes % Cancelled 10.1 L Monocytes % Cancelled 3.6 Eosinophils % Cancelled 0.7 Basophils % Cancelled 0.2 Absolute Neutrophils Cancelled 9.7 H Absolute Lymphocytes Cancelled 1.2 Absolute Monocytes Cancelled 0.4 Absolute Eosinophils Cancelled 0.1 Absolute Basophils Cancelled 0.0 Sodium Cancelled Potassium Cancelled Chloride Cancelled Carbon Dioxide Cancelled Anion Gap Cancelled BUN Cancelled Creatinine Cancelled Est GFR ( Amer) Cancelled Est GFR (Non-Af Amer) Cancelled Glucose Cancelled Calcium Cancelled Magnesium Cancelled Total Bilirubin Cancelled AST Cancelled ALT Cancelled Alkaline Phosphatase Cancelled Total Protein Cancelled Albumin Cancelled 02/22/18 11:02 WBC RBC Hgb Hct MCV MCH MCHC RDW Plt Count Seg Neutrophils % Lymphocytes % Monocytes % Eosinophils % Basophils % Absolute Neutrophils Absolute Lymphocytes Absolute Monocytes Absolute Eosinophils Absolute Basophils Sodium 146.6 H Potassium 3.9 Chloride 114 H Carbon Dioxide 23 Anion Gap 10 BUN 26 H Creatinine 1.53 H Est GFR ( Amer) 56 L Est GFR (Non-Af Amer) 46 L Glucose 126 H Calcium 8.4 Magnesium 1.7 Total Bilirubin 0.3 AST 35 ALT 27 Alkaline Phosphatase 184 H Total Protein 5.8 L Albumin 2.7 L 02/22/18 02/22/18 10:00 11:02 Troponin I Cancelled 0.079 NT-Pro-B Natriuret Pep Cancelled 10893 H Impressions: Chest X-Ray 02/22/18 10:37 IMPRESSION: CHF. Assessment & Plan - Diagnosis (1) Acute CHF (congestive heart failure) Qualifiers: Heart failure type: systolic Qualified Code(s): I50.21 - Acute systolic ( congestive) heart failure Is this a current diagnosis for this admission?: Yes Plan: Patient was given IV Lasix 80 mg in the ER which did give him significant relief. He did diurese after the Lasix. We will continue IV Lasix at 40 mg IV q12. Strict I&O's. Salt and fluid restriction. (2) Elevated troponin Is this a current diagnosis for this admission?: Yes Plan: Troponin slightly elevated at 0.07. Patient is not complaining of chest pain. No acute changes on EKG aside from a RBBB pattern which is chronic. Slight troponin elevation is likely from demand ischemia secondary to CHF exacerbation. - Time Time Spent: 30 to 50 Minutes
[2018-02-22] MEDS: DIVALPROEX SODIUM 250 MG TAB.SR.24H PO SCH (19:22)
[2018-02-22] MEDS: FUROSEMIDE INJ/PF 40 MG/4 ML SDV IV SCH (22:14)
[2018-02-22] MEDS: ATORVASTATIN CALCIUM 40 MG TABLET PO SCH (22:15)
[2018-02-22] MEDS: BUSPIRONE HCL 10 MG TABLET PO SCH (22:15)
[2018-02-23] MEDS: HEPARIN SOD (PORCINE) 5,000 UNIT/ML 1 ML SYRINGE SUBCUT SCH ×3 (05:13→22:25)
[2018-02-23 05:57] LABS: ANION GAP 10 (5-19); BLOOD UREA NITROGEN 25 mg/dL (7-20); CARBON DIOXIDE 25 mmol/L (22-30); CHLORIDE 113 mmol/L (98-107); GLUCOSE 84 mg/dL (75-110); POTASSIUM 4.1 mmol/L (3.6-5.0); SODIUM 147.9 mmol/L (137-145)
[2018-02-23] MEDS: ASPIRIN 81 MG TABLET, CHEWABLE PO SCH (10:56)
[2018-02-23] MEDS: DIVALPROEX SODIUM 250 MG TAB.SR.24H PO SCH ×2 (10:56→17:55)
[2018-02-23] MEDS: BUSPIRONE HCL 10 MG TABLET PO SCH ×2 (10:57→22:25)
[2018-02-23] MEDS: FUROSEMIDE INJ/PF 40 MG/4 ML SDV IV SCH (10:57)
[2018-02-23] MEDS: POTASSIUM CHLORIDE 10 MEQ CAPSULE.ER PO SCH (10:57)
--- NOTE | 2018-02-23 20:30 | PDOC PROGRESS REPORT ---
Subjective Progress Note for:: 02/23/18 Subjective:: YAHIR PARSON is a 62 year old male with a past medical history of congestive heart failure, insulin-dependent diabetes mellitus and hypertension who presented with increasing shortness of breath. Patient was admitted for CHF exacerbation. He was started on IV Lasix. No acute event overnight. Patient has clinically significantly improved. He says that his breathing has been much better today. Reason For Visit: CHF EXACERBATION Physical Exam Vital Signs: Temp Pulse Resp BP Pulse Ox 97.4 F 85 16 144/60 H 99 02/23/18 17:32 02/23/18 17:32 02/23/18 17:32 02/23/18 17:32 02/23/18 17:32 Intake & Output 02/22/18 02/23/18 02/24/18 06:59 06:59 06:59 Intake Total 592 Output Total 1100 Balance -1100 592 Weight 218 lb 4.122 oz General appearance: PRESENT: no acute distress, well-developed, well-nourished Head exam: PRESENT: atraumatic, normocephalic Eye exam: PRESENT: conjunctiva pink, EOMI, PERRLA. ABSENT: scleral icterus Ear exam: PRESENT: normal external ear exam Neck exam: ABSENT: carotid bruit, JVD, lymphadenopathy, thyromegaly Respiratory exam: PRESENT: rales - Very minimal rales in the bases significantly improved from yesterday. ABSENT: rhonchi, wheezes Cardiovascular exam: PRESENT: RRR. ABSENT: diastolic murmur, rubs, systolic murmur Pulses: PRESENT: normal dorsalis pedis pul GI/Abdominal exam: PRESENT: normal bowel sounds, soft. ABSENT: distended, guarding, mass, organolmegaly, rebound, tenderness Rectal exam: PRESENT: deferred Neurological exam: PRESENT: alert, awake, oriented to person, oriented to place , oriented to time, oriented to situation, CN II-XII grossly intact. ABSENT: motor sensory deficit Results Laboratory Results: 02/23/18 03:57 02/23/18 03:57 Sodium 147.9 H Potassium 4.1 Chloride 113 H Carbon Dioxide 25 Anion Gap 10 BUN 25 H Creatinine 1.82 H Est GFR ( Amer) 46 L Est GFR (Non-Af Amer) 38 L Glucose 84 Calcium 8.0 L Magnesium 1.6 02/22/18 18:36 Troponin I 0.080 Impressions: Chest X-Ray 02/22/18 10:37 IMPRESSION: CHF. Assessment & Plan - Diagnosis (1) Acute CHF (congestive heart failure) Qualifiers: Heart failure type: diastolic Qualified Code(s): I50.31 - Acute diastolic ( congestive) heart failure Is this a current diagnosis for this admission?: Yes Plan: Significantly improved. Discontinue IV Lasix. Switch back to p.o. home Lasix regimen. Will have patient ambulate and do a 6-minute walk test and see if he requires home O2 (2) Elevated troponin Is this a current diagnosis for this admission?: Yes Plan: Troponin slightly elevated at 0.07. Patient is not complaining of chest pain. No acute changes on EKG aside from a RBBB pattern which is chronic. Slight troponin elevation is likely from demand ischemia secondary to CHF exacerbation.
[2018-02-23] MEDS: ATORVASTATIN CALCIUM 40 MG TABLET PO SCH (22:25)
[2018-02-24] MEDS: HEPARIN SOD (PORCINE) 5,000 UNIT/ML 1 ML SYRINGE SUBCUT SCH ×2 (05:15→13:52)
[2018-02-24] MEDS ORDERED: FUROSEMIDE 20 MG TABLET PO SCH (08:00)
[2018-02-24] MEDS: DIVALPROEX SODIUM 250 MG TAB.SR.24H PO SCH ×2 (09:01→17:12)
[2018-02-24] MEDS: BUSPIRONE HCL 10 MG TABLET PO SCH (09:01)
[2018-02-24] MEDS: ASPIRIN 81 MG TABLET, CHEWABLE PO SCH (09:01)
[2018-02-24] MEDS ORDERED: FUROSEMIDE INJ/PF 40 MG/4 ML SDV IV SCH (10:00)
[2018-02-24 13:21] LABS: ANION GAP 11 (5-19); BLOOD UREA NITROGEN 28 mg/dL (7-20); CALCIUM 8.5 mg/dL (8.4-10.2); CARBON DIOXIDE 25 mmol/L (22-30); CHLORIDE 110 mmol/L (98-107); GLUCOSE 132 mg/dL (75-110); POTASSIUM 4.4 mmol/L (3.6-5.0); SODIUM 145.6 mmol/L (137-145)
[2018-02-24 17:00] VITALS: BP 147/65
--- NOTE | 2018-02-24 17:52 | PDOC DISCHARGE SUMMARY ---
General - Admit/Disc Date/PCP Admission Date/Primary Care Provider: 02/22/18 15:31 [facility] Discharge Date: 02/24/18 - Discharge Diagnosis (1) Acute CHF (congestive heart failure) Is this a current diagnosis for this admission?: Yes (2) Elevated troponin Is this a current diagnosis for this admission?: Yes - Additional Information Prescriptions: Metoprolol Tartrate [Lopressor 25 mg Tablet] 12.5 mg PO Q12 30 Days #30 tab Home Medications: Aspirin 81 mg PO DAILY #30 tab.chew 01/13/18 Atorvastatin Calcium [Lipitor 40 mg Tablet] 40 mg PO QHS 30 Days #30 tablet Buspirone HCl [Buspar 10 mg Tablet] 10 mg PO Q12 #60 tablet 01/13/18 Divalproex Sodium [Depakote ER 250 mg Tablet] 250 mg PO BID #60 tab.sr.24h 01/13 Furosemide [Lasix 20 mg Tablet] 20 mg PO QAM #30 tablet 01/13/18 Losartan Potassium [Cozaar 50 mg Tablet] 100 mg PO DAILY #30 tablet 01/13/18 Metoprolol Tartrate [Lopressor 25 mg Tablet] 12.5 mg PO Q12 30 Days #30 tab 11/04 History of Present Illness History of Present Illness: YAHIR PARSON is a 62 year old male with a past medical history of congestive heart failure, insulin-dependent diabetes mellitus and hypertension who presented with increasing shortness of breath. Patient says that she takes Lasix at home for his CHF. He says that because of insurance issues he was of his home medications for more than 2 weeks because he gets through [employer]. He says that over the past 5-6 days, he developed gradually progressive shortness of breath. He says he has chronic pedal edema but this also has been worsening in the past 5 days. He denies any chest pain, dizziness, nausea or vomiting. He says that around 3 AM this morning, she went to his living room to watch TV and was having increasing shortness of breath. He says he slept on his couch and was found by his mother on the floor this morning. He was brought into the ER and was noted to have a blood glucose of 26. He does say he takes 40 units of Lantus at night but does not check his sugars regularly. He was also noted to have significant crackles in both lung jacob and was hypoxic at 80% on room air. He was given glucose and was also given 80 mg of IV Lasix which significantly improved his breathing. Hospital Course Hospital Course: In the ER, patient was in mild distress but says his breathing has significantly improved after the Lasix. He is saturating on 98% at rest on 4 L of nasal cannula but desaturates to 70% on exertion. He denies chest pain or palpitations. Chest x-ray shows pulmonary congestion and he has a BNP of 11,000. Patient apparently was out of her Lasix for 2 weeks due to insurance issues. He did receive his medical supplies 2 days prior to presenting to the ER. Patient was started on IV Lasix. He did significantly improve overnight. His creatinine did slightly trended up with diuresis. He was weaned of oxygen supplementation. Upon day of discharge, his creatinine did trend down but not back at baseline. He was recommended to follow with PCP for a repeat BMP. Patient was also started on Lopressor. 6-minute walk test was done on day of discharge and patient ambulated well without shortness of breath, chest pain or chest tightness on room air. He maintained saturation all throughout at more than 92%. His lung sounds are also clear on day of discharge. Discharge planning was also consulted to help patient with procuring his medications. Patient has history of present with him diabetes mellitus and uses 40 units of Lantus at night. He does not check his sugars regularly but says that he continues to use Lantus every day. He did came in with significant hypoglycemia and had to be given dextrose. A1c was checked and this came back low at 5.1%. Lantus will be discontinued and he will not be placed on any antidiabetic medication at home. Patient verbalized understanding. Physical Exam Vital Signs: Temp Pulse Resp BP Pulse Ox 97.7 F 78 16 142/79 H 100 02/24/18 13:00 02/24/18 13:00 02/24/18 13:00 02/24/18 13:00 02/24/18 13:00 Intake & Output 02/23/18 02/24/18 02/25/18 06:59 06:59 06:59 Intake Total 592 Output Total 1100 Balance -1100 592 Weight 218 lb 4.122 oz 218 lb 4.122 oz General appearance: PRESENT: no acute distress, well-developed, well-nourished Head exam: PRESENT: atraumatic, normocephalic Eye exam: PRESENT: conjunctiva pink, EOMI, PERRLA. ABSENT: scleral icterus Ear exam: PRESENT: normal external ear exam Mouth exam: PRESENT: moist, tongue midline Neck exam: ABSENT: carotid bruit, JVD, lymphadenopathy, thyromegaly Respiratory exam: PRESENT: clear to auscultation ochoa. ABSENT: rales, rhonchi, wheezes Cardiovascular exam: PRESENT: RRR. ABSENT: diastolic murmur, rubs, systolic murmur Pulses: PRESENT: normal dorsalis pedis pul Vascular exam: PRESENT: normal capillary refill GI/Abdominal exam: PRESENT: normal bowel sounds, soft. ABSENT: distended, guarding, mass, organolmegaly, rebound, tenderness Rectal exam: PRESENT: deferred Neurological exam: PRESENT: alert, awake, oriented to person, oriented to place , oriented to time, oriented to situation, CN II-XII grossly intact. ABSENT: motor sensory deficit Results Laboratory Results: 02/24/18 12:40 02/24/18 12:40 Sodium 145.6 H Potassium 4.4 Chloride 110 H Carbon Dioxide 25 Anion Gap 11 BUN 28 H Creatinine 1.68 H Est GFR ( Amer) 50 L Est GFR (Non-Af Amer) 42 L Glucose 132 H Calcium 8.5 02/22/18 18:36 Troponin I 0.080 Impressions: Chest X-Ray 02/22/18 10:37 IMPRESSION: CHF. Qualifiers - * PATIENT BEING DISCHARGED WITH ANY OF THE FOLLOWING DIAGNOSIS: Heart Failure HF Pt being discharged on ACEI for LVEF less than 40%?: No Reason(s) for not prescribing ACEI:: Not indicated HF Pt being discharged on ARBS for LVEF less than 40%?: No Reason(s) for not prescribing ARBS:: Not indicated HF Pt with Afib discharged with Warfarin?: No Reason(s) for not prescribing Warfarin:: Not indicated HF Pt discharged on evidence-based Beta Wendy:: Yes
== END 2018-02-24 18:26 | disposition home or self-care (01) | DRG 293 ==
LOC: ER 10:12 → EH 15:31 → 5 21:18
PROVIDERS: ADMIT Hospitalist; ATTEND Hospitalist
DX: I11.0 Hypertensive heart disease with heart failure (principal); I50.23 Acute on chronic systolic (congestive) heart failure; E11.649 Type 2 diabetes mellitus with hypoglycemia without coma; E78.5 Hyperlipidemia, unspecified; R74.8 Abnormal levels of other serum enzymes; T50.1X6A Underdosing of loop [high-ceiling] diuretics, initial encounter; Z79.4 Long term (current) use of insulin; Z87.891 Personal history of nicotine dependence; Z79.82 Long term (current) use of aspirin; Z91.138 Patient's unintentional underdosing of medication regimen for other reason
CPT/HCPCS: 36415; 71045; 80048; 80053; 82962; 83036; 83735; 83880; 84443; 84484; 85025; 85610; 93005; 93010; 94640; 96374; 99285; J1644; J1815; J1940; J3490; J7620

== ENCOUNTER 2018-04-25 11:50 | Inpatient (IN) | payer MEDICAID ==
--- NOTE | 2018-04-25 13:01 | ER Document Report ---
ED Medical Screen (RME) - General Chief Complaint: Shortness Of Breath Stated Complaint: SHORTNESS OF BREATH Time Seen by Provider: 04/25/18 12:41 Primary Care Provider: [facility] [Primary Care Provider] - Follow up as needed Notes: Patient is a 62-year-old male with CHF that presents to the emergency department for chief complaint of shortness of breath. [facility], they referred him to the emergency department due to his progressive leg swelling over the past 2 weeks, and shortness of breath particularly with exertion.. ROS: Other than noted above, the 12 point review of systems was reviewed with the patient and were negative, all pertinent findings are included in the HPI. PHYSICAL EXAMINATION: Vital signs reviewed. GENERAL: Elderly male, but in no acute distress HEAD: Atraumatic, normocephalic. EYES: Pupils equal round extraocular movements intact, conjunctiva are normal. ENT: Nares patent NECK: Normal range of motion CV: Heart regular rate and rhythm LUNGS: No respiratory distress Musculoskeletal: Normal range of motion, 3+ pitting edema to the proximal tibias. NEUROLOGICAL: Normal speech PSYCH: Normal mood, normal affect. MDM: Patient seen and examined for rapid initial assessment. Vital signs reviewed. A comprehensive ED assessment and evaluation of the patient, analysis of test results and completion of the medical decision making process will be conducted by additional ED providers. *Note is created using voice recognition software and may contain spelling, syntax or grammatical errors. TRAVEL OUTSIDE OF THE [place] IN LAST 30 DAYS: No - Related Data Allergies/Adverse Reactions: No Known Allergies Allergy (Verified 04/25/18 11:59) Past Medical History - Social History Chew tobacco use (# tins/day): No Frequency of alcohol use: None Drug Abuse: None - Past Medical History Cardiac Medical History: Reports: Hx Hypercholesterolemia, Hx Hypertension Denies: Hx Atrial Fibrillation, Hx Congestive Heart Failure, Hx Coronary Artery Disease, Hx DVT, Hx Heart Attack, Hx Peripheral Vascular Disease, Hx Pulmonary Embolism, Hx Heart Murmur Pulmonary Medical History: Denies: Hx Asthma, Hx COPD, Hx Pneumonia, Hx Intubation, Hx Respiratory Failure, Hx Tuberculosis Neurological Medical History: Denies: Hx Seizures Endocrine Medical History: Reports: Hx Diabetes Mellitus Type 1, Hx Diabetes Mellitus Type 2. Denies: Hx Hyperthyroidism, Hx Hypothyroidism Renal/ Medical History: Denies: Hx Peritoneal Dialysis GI Medical History: Denies: Hx Cirrhosis, Hx Crohn's Disease, Hx Gastroesophageal Reflux Disease, Hx Hepatitis, Hx Ulcerative Colitis Musculoskeltal Medical History: Denies Hx Arthritis, Denies Hx Gout Skin Medical History: Denies Hx Eczema, Denies Hx Psoriasis Psychiatric Medical History: Denies: Hx Dementia, Hx Depression Infectious Medical History: Denies: Hx Hepatitis Past Surgical History: Denies: Hx Cardiac Catheterization, Hx Orthopedic Surgery, Hx Pacemaker, Hx Vascular Surgery - Immunizations Hx Diphtheria, Pertussis, Tetanus Vaccination: Yes Physical Exam - Vital signs Vitals: Temp Pulse Resp BP Pulse Ox 97.6 F 87 16 160/68 H 97 04/25/18 12:03 04/25/18 12:03 04/25/18 12:03 04/25/18 12:03 04/25/18 12:03 Course - Vital Signs Vital signs: Temp Pulse Resp BP Pulse Ox 97.6 F 87 16 160/68 H 97 04/25/18 12:03 04/25/18 12:03 04/25/18 12:03 04/25/18 12:03 04/25/18 12:03 Doctor's Discharge - Discharge [facility]errals: [facility] [[facility]] - Follow up as needed
[2018-04-25 13:28] LABS: ABSOLUTE BASOPHILS # (AUTO) 0.1 10^3/uL (0.0-0.2); ABSOLUTE EOSINOPHILS # (AUTO) 0.7 10^3/uL (0.0-0.6); ABSOLUTE LYMPHOCYTES (AUTO) 1.4 10^3/uL (0.5-4.7); ABSOLUTE MONOCYTES (AUTO) 0.7 10^3/uL (0.1-1.4); ABSOLUTE NEUT (AUTO) 5.3 10^3/uL (1.7-8.2); BASOPHILS % (AUTO) 0.6 % (0-2); EOSINOPHILS % (AUTO) 8.8 % (0-6); HEMATOCRIT 35.8 % (37.9-51.0); HEMOGLOBIN 11.9 g/dL (13.5-17.0); MEAN CORPUSCULAR HEMOGLOBIN 29.6 pg (27.0-33.4); MEAN CORPUSCULAR HGB CONC 33.3 g/dL (32.0-36.0); MEAN CORPUSCULAR VOLUME 89 fl (80-97); MONOCYTES % (AUTO) 8.4 % (3-13); PLATELET COUNT 251 10^3/uL (150-450); RED BLOOD COUNT 4.03 10^6/uL (4.35-5.55); RED CELL DISTRIBUTION WIDTH 15.3 % (11.5-14.0); SEGMENTED NEUTROPHILS % (AUTO) 65.2 % (42-78); TOTAL CELLS COUNTED % (AUTO) 100 %; WHITE BLOOD COUNT 8.1 10^3/uL (4.0-10.5)
[2018-04-25 13:47] LABS: ALANINE AMINOTRANSFERASE 13 U/L (21-72); ALBUMIN 2.7 g/dL (3.5-5.0); ALKALINE PHOSPHATASE 163 U/L (38-126); ANION GAP 7 (5-19); ASPARTATE AMINO TRANSFERASE 20 U/L (17-59); BILIRUBIN,DIRECT 0.2 mg/dL (0.0-0.4); BILIRUBIN,TOTAL 0.2 mg/dL (0.2-1.3); BLOOD UREA NITROGEN 31 mg/dL (7-20); CALCIUM 8.1 mg/dL (8.4-10.2); CARBON DIOXIDE 25 mmol/L (22-30); CHLORIDE 112 mmol/L (98-107); GLUCOSE 115 mg/dL (75-110); POTASSIUM 4.3 mmol/L (3.6-5.0); SODIUM 143.7 mmol/L (137-145); TOTAL PROTEIN 5.5 g/dL (6.3-8.2)
--- NOTE | 2018-04-25 13:51 | RADIOLOGY REPORT (SQ) ---
EXAM DESCRIPTION: CHEST SINGLE VIEW COMPLETED DATE/TIME: 04/25/2018 1:38 pm REASON FOR STUDY: shortness of breath COMPARISON: 02/22/2018 EXAM PARAMETERS: NUMBER OF VIEWS: One view. TECHNIQUE: Single frontal radiographic view of the chest acquired. RADIATION DOSE: NA LIMITATIONS: None. FINDINGS: LUNGS AND PLEURA: Increased bilateral pleural effusions. MEDIASTINUM AND HILAR STRUCTURES: No masses. Contour normal. HEART AND VASCULAR STRUCTURES: Heart enlarged. Vascular congestion. BONES: No acute findings. HARDWARE: None in the chest. OTHER: No other significant finding. IMPRESSION: Cardiac enlargement with vascular congestion. Increased bilateral pleural effusions. TECHNICAL DOCUMENTATION: JOB ID: [id number] [employer]- All Rights Reserved Reading location - IP/workstation name: [email or web address]
[2018-04-25] MEDS ORDERED: NITROGLYCERIN 2% OINTMENT 1 GM PACKET TP ONE (16:03)
[2018-04-25] MEDS ORDERED: FUROSEMIDE INJ/PF 20 MG/2 ML SDV IV ONE (16:03)
--- NOTE | 2018-04-25 16:07 | ER Document Report ---
ED General - General Chief Complaint: Shortness Of Breath Stated Complaint: SHORTNESS OF BREATH Time Seen by Provider: 04/25/18 12:41 Mode of Arrival: Ambulatory Information source: Patient, Relative, [facility] Records Notes: 62-year-old male with hypertension, hyperlipidemia, congestive heart failure, diabetes presents from his primary care physician's office with complaint of shortness of breath, abdominal distention and lower extremity edema that has been ongoing for 2 weeks. Patient describes the shortness of breath is chronic but worse. Worse with laying flat, ambulation. Patient was seen by his PCP this morning and advised to come to the emergency department. Patient denies chest pain, abdominal pain, nausea, vomiting, fever, chills. Patient does continue to use tobacco. TRAVEL OUTSIDE OF THE [place] IN LAST 30 DAYS: No - HPI Onset: Other Onset/Duration: Persistent, Worse Quality of pain: No pain Severity: None Associated symptoms: Nonproductive cough, Leg swelling, Shortness of breath. denies: Chest pain, Hurts to breath, Nausea, Vomiting Exacerbated by: Movement, Walking Relieved by: Denies Similar symptoms previously: Yes Recently seen / treated by doctor: Yes - This morning by his PCP - Related Data Allergies/Adverse Reactions: No Known Allergies Allergy (Verified 04/25/18 11:59) Past Medical History - General Information source: Patient, Relative, [facility] Records - Social History Smoking Status: Current Every Day Smoker Chew tobacco use (# tins/day): No Frequency of alcohol use: None Drug Abuse: None Lives with: Family Family History: None Patient has suicidal ideation: No Patient has homicidal ideation: No - Past Medical History Cardiac Medical History: Reports: Hx Hypercholesterolemia, Hx Hypertension Denies: Hx Atrial Fibrillation, Hx Congestive Heart Failure, Hx Coronary Artery Disease, Hx DVT, Hx Heart Attack, Hx Peripheral Vascular Disease, Hx Pulmonary Embolism, Hx Heart Murmur Pulmonary Medical History: Denies: Hx Asthma, Hx COPD, Hx Pneumonia, Hx Intubation, Hx Respiratory Failure, Hx Tuberculosis Neurological Medical History: Denies: Hx Seizures Endocrine Medical History: Reports: Hx Diabetes Mellitus Type 1, Hx Diabetes Mellitus Type 2. Denies: Hx Hyperthyroidism, Hx Hypothyroidism Renal/ Medical History: Denies: Hx Peritoneal Dialysis GI Medical History: Denies: Hx Cirrhosis, Hx Crohn's Disease, Hx Gastroesophageal Reflux Disease, Hx Hepatitis, Hx Ulcerative Colitis Musculoskeletal Medical History: Denies Hx Arthritis, Denies Hx Gout Skin Medical History: Denies Hx Eczema, Denies Hx Psoriasis Psychiatric Medical History: Denies: Hx Dementia, Hx Depression Infectious Medical History: Denies: Hx Hepatitis Past Surgical History: Denies: Hx Cardiac Catheterization, Hx Orthopedic Surgery, Hx Pacemaker, Hx Vascular Surgery - Immunizations Hx Diphtheria, Pertussis, Tetanus Vaccination: Yes Review of Systems - Review of Systems Constitutional: Weakness, Recent illness. denies: Fever EENT: denies: Blurred vision, Difficulty swallowing Cardiovascular: Edema. denies: Chest pain, Lightheaded Respiratory: Cough, Short of breath. denies: Wheezing Gastrointestinal: Abdomen distended. denies: Nausea, Vomiting, Poor appetite Genitourinary: denies: Dysuria, Flank pain Male Genitourinary: No symptoms reported Musculoskeletal: Leg swelling, Ankle swelling Skin: Other - Superficial abrasion to the left upper extremity. denies: Rash Hematologic/Lymphatic: No symptoms reported Neurological/Psychological: Weakness, Loss of power. denies: Headaches -: Yes All other systems reviewed and negative Physical Exam - Vital signs Vitals: Temp Pulse Resp BP Pulse Ox 97.6 F 87 16 160/68 H 97 04/25/18 12:03 04/25/18 12:03 04/25/18 12:03 04/25/18 12:03 04/25/18 12:03 - Notes Notes: PHYSICAL EXAMINATION: GENERAL: Well-appearing, well-nourished and in no acute distress. HEAD: Atraumatic, normocephalic. EYES: Pupils equal round and reactive to light, extraocular movements intact, sclera anicteric, conjunctiva are normal. ENT: Nares patent, oropharynx clear without exudates. Moist mucous membranes. NECK: Normal range of motion, supple without lymphadenopathy LUNGS: Diminished breath sounds bilaterally. No wheezes rales or rhonchi. HEART: Regular rate and rhythm without murmurs ABDOMEN: Soft, nontender, distended abdomen. No guarding, no rebound. No masses appreciated. Musculoskeletal: Normal range of motion, 2+ pitting edema no cyanosis. NEUROLOGICAL: Cranial nerves grossly intact. Normal speech, normal gait. No rmal sensory, motor exams PSYCH: Normal mood, normal affect. SKIN: Warm, Dry, normal turgor, no rashes or lesions noted. Course - Re-evaluation Re-evalutation: Laboratory 04/25/18 04/25/18 04/25/18 13:17 13:17 13:17 WBC 8.1 RBC 4.03 L Hgb 11.9 L Hct 35.8 L MCV 89 MCH 29.6 MCHC 33.3 RDW 15.3 H Plt Count 251 Seg Neutrophils % 65.2 Lymphocytes % 17.0 Monocytes % 8.4 Eosinophils % 8.8 H Basophils % 0.6 Absolute Neutrophils 5.3 Absolute Lymphocytes 1.4 Absolute Monocytes 0.7 Absolute Eosinophils 0.7 H Absolute Basophils 0.1 Carbonic Acid HCO3/H2CO3 Ratio ABG pH ABG pCO2 ABG pO2 ABG HCO3 ABG Total CO2 ABG O2 Saturation ABG Base Excess FiO2 Sodium 143.7 Potassium 4.3 Chloride 112 H Carbon Dioxide 25 Anion Gap 7 BUN 31 H Creatinine 2.04 H Est GFR ( Amer) 40 L Est GFR (Non-Af Amer) 33 L Glucose 115 H Calcium 8.1 L Total Bilirubin 0.2 Direct Bilirubin 0.2 Neonat Total Bilirubin Not Reportable Neonat Direct Bilirubin Not Reportable Neonat Indirect Bili Not Reportable AST 20 ALT 13 L Alkaline Phosphatase 163 H Troponin I NT-Pro-B Natriuret Pep 40209 H Total Protein 5.5 L Albumin 2.7 L 04/25/18 04/25/18 16:35 16:58 WBC RBC Hgb Hct MCV MCH MCHC RDW Plt Count Seg Neutrophils % Lymphocytes % Monocytes % Eosinophils % Basophils % Absolute Neutrophils Absolute Lymphocytes Absolute Monocytes Absolute Eosinophils Absolute Basophils Carbonic Acid 1.37 H HCO3/H2CO3 Ratio 17:1 ABG pH 7.34 L ABG pCO2 45.4 H ABG pO2 76.1 L ABG HCO3 23.8 ABG Total CO2 25.2 ABG O2 Saturation 94.4 ABG Base Excess -2.1 FiO2 28% Sodium Potassium Chloride Carbon Dioxide Anion Gap BUN Creatinine Est GFR ( Amer) Est GFR (Non-Af Amer) Glucose Calcium Total Bilirubin Direct Bilirubin Neonat Total Bilirubin Neonat Direct Bilirubin Neonat Indirect Bili AST ALT Alkaline Phosphatase Troponin I 0.033 NT-Pro-B Natriuret Pep Total Protein Albumin Chest X-Ray 04/25/18 13:07 IMPRESSION: Cardiac enlargement with vascular congestion. Increased bilateral pleural effusions. Chest CT 04/25/18 16:03 IMPRESSION: Large bilateral pleural effusions with compressive atelectasis of the lung bases. Temp Pulse Resp BP Pulse Ox 97.5 F 87 22 H 176/90 H 96 04/25/18 21:00 04/25/18 12:03 04/25/18 21:31 04/25/18 21:31 04/25/18 21:31 04/25/18 16:02 62-year-old male with history of congestive heart failure presents with 2 weeks of shortness of breath, abdominal distention and bilateral lower extremity pitting edema. Bedside ultrasound was performed and showed no pericardial effusion but does show 2 large bilateral pleural effusions. Patient was placed on BiPAP, nitro paste was placed and Lasix was administered. CBC unremarkable, CMP consistent with acute kidney injury. Troponin is within normal limits. BNP- 18,000. CT of the chest confirmed bilateral large pleural effusion. Patient has been accepted by the hospitalist for admission. - Vital Signs Vital signs: Temp Pulse Resp BP Pulse Ox 97.5 F 87 22 H 176/90 H 96 04/25/18 21:00 04/25/18 12:03 04/25/18 21:31 04/25/18 21:31 04/25/18 21:31 - Laboratory Result Diagrams: 04/25/18 13:17 04/25/18 13:17 Laboratory results interpreted by me: 04/25/18 04/25/18 04/25/18 13:17 13:17 13:17 RBC 4.03 L Hgb 11.9 L Hct 35.8 L RDW 15.3 H Eosinophils % 8.8 H Absolute Eosinophils 0.7 H Carbonic Acid ABG pH ABG pCO2 ABG pO2 Chloride 112 H BUN 31 H Creatinine 2.04 H Est GFR ( Amer) 40 L Est GFR (Non-Af Amer) 33 L Glucose 115 H Calcium 8.1 L ALT 13 L Alkaline Phosphatase 163 H NT-Pro-B Natriuret Pep 92896 H Total Protein 5.5 L Albumin 2.7 L 04/25/18 16:35 RBC Hgb Hct RDW Eosinophils % Absolute Eosinophils Carbonic Acid 1.37 H ABG pH 7.34 L ABG pCO2 45.4 H ABG pO2 76.1 L Chloride BUN Creatinine Est GFR ( Amer) Est GFR (Non-Af Amer) Glucose Calcium ALT Alkaline Phosphatase NT-Pro-B Natriuret Pep Total Protein Albumin - Diagnostic Test Radiology reviewed: Image reviewed, Reports reviewed - EKG Interpretation by Me EKG shows normal: Sinus rhythm Rate: Normal [place]/QRS: RBBB When compared to previous EKG there are: No significant change Critical Care Note - Critical Care Note Total time excluding time spent on procedures (mins): 35 - Minutes of critical care time spent in direct contact evaluating and reevaluating the patient, treating symptoms, reviewing labs and studies and speaking with family and consultants excluding any procedures Discharge - Discharge Clinical Impression: Bilateral pleural effusion, Leg swelling, CKD (chronic kidney disease) stage 3, GFR 30-59 ml/min, Respiratory acidosis, Tobacco use CHF (congestive heart failure) Qualifiers: Heart failure type: diastolic Heart failure chronicity: chronic Qualified Code(s): I50.32 - Chronic diastolic (congestive) heart failure Hypertension Qualifiers: Hypertension type: unspecified Qualified Code(s): I10 - Essential (primary) hypertension Condition: Good Disposition: ADMITTED INPATIENT Admitting Provider: Hospitalist Unit Admitted: [facility]
--- NOTE | 2018-04-25 16:35 | RADIOLOGY REPORT (SQ) ---
EXAM DESCRIPTION: CT CHEST WITHOUT COMPLETED DATE/TIME: 04/25/2018 4:16 pm REASON FOR STUDY: sob COMPARISON: Plain radiograph TECHNIQUE: CT scan performed of the chest without intravenous contrast. Images reviewed with lung, soft tissue and bone windows. Reconstructed coronal and sagittal MPR images reviewed. All images st ored on PACS. All CT scanners at this facility use dose modulation, iterative reconstruction, and/or weight based d osing when appropriate to reduce radiation dose to as low as reasonably achievable (ALARA). [facility]: Dose Right [facility]: CareDose [facility]: Dose Right [facility]: Teradose 4D [facility]: [employer] RADIATION DOSE: CT Rad equipment meets quality standard of care and radiation dose reduction techniq ues were employed. CTDIvol: 15.4 mGy. DLP: 612 mGy-cm. mGy. LIMITATIONS: No technical limitations. FINDINGS: LUNGS AND PLEURA: No masses, infiltrates, or pneumothorax. No pleural effusions or pleura l calcifications. HILAR AND MEDIASTINAL STRUCTURES: Large bilateral pleural effusions with compressive atelectasis at t he bases. HEART AND VASCULAR STRUCTURES: No aneurysm. No pericardial effusion. Coronary artery calcification. UPPER ABDOMEN: No significant findings. Limited exam. THYROID AND OTHER SOFT TISSUES: No masses. No adenopathy. BONES: No significant finding. HARDWARE: None in the chest. OTHER: No other significant findings. IMPRESSION: Large bilateral pleural effusions with compressive atelectasis of the lung bases. TECHNICAL DOCUMENTATION: JOB ID: [id number] Quality ID # [id number]: Final reports with documentation of one or more dose reduction techniques (e.g., Au tomated exposure control, adjustment of the mA and/or kV according to patient size, use of iterative reconstruction technique) 2010 [employer]- All Rights Reserved Reading location - IP/workstation name: [email or web address]
[2018-04-25 17:00] LABS: ARTERIAL BLOOD BASE EXCESS -2.1 mmol/L; ARTERIAL BLOOD H2CO3 1.37 mmol/L (1.05-1.35); ARTERIAL BLOOD HCO3 23.8 mmol/L (20-24); ARTERIAL BLOOD O2 SATURATION 94.4 % (94-98); ARTERIAL BLOOD PCO2 45.4 mmHg (35-45); ARTERIAL BLOOD PH 7.34 (7.35-7.45); ARTERIAL BLOOD PO2 76.1 mmHg (80-100); ARTERIAL BLOOD TOTAL CO2 25.2 mmol/L (23-27)
[2018-04-25 17:12] LABS: ARTERIAL BLOOD FIO2 28%
--- NOTE | 2018-04-25 17:23 | PDOC H&P ---
History of Present Illness History of Present Illness: YAHIR PARSON is a 62 year old male past medical history of hypertension, hyperlipidemia, CHF, diabetes sent from his primary care physician for shortness of breath, abdominal distention, lower extremity edema. Patient states that he has been having worsening shortness of breath for the last 1 month associated with orthopnea and dyspnea on exertion. He is compliant with his medications denies any recent illness, or excessive fluid intake. Denying any chest pain, nausea, vomiting, abdominal pain, diarrhea, constipation, or any urinary symptoms. ED CT chest showed large bilateral pleural effusion with compressive atelectasis of the lung bases on his CMP worsening kidney function. Past Medical History Cardiac Medical History: Reports: Hyperlipidema, Hypertension Denies: Atrial Fibrillation, Congestive Heart Failure, Coronary Artery Dise ase, DVT, Myocardial Infarction, Peripheral Vascular Disease, Pulmonary Embolism, Heart Murmur Pulmonary Medical History: Denies: Asthma, Chronic Obstructive Pulmonary Disease (COPD), Intubation, Pneumonia, Respiratory Failure, Tuberculosis Neurological Medical History: Denies: Seizures Endocrine Medical History: Reports: Diabetes Mellitus Type 1, Diabetes Mellitus Type 2 Denies: Hyperthyroidism, Hypothyroidism GI Medical History: Denies: Cirrhosis, Crohn's Disease, Gastroesophageal Reflux Disease, Hepatitis, Ulcerative Colitis Musculoskeltal Medical History: Denies: Arthritis, Gout Skin Medical History: Denies: Eczema, Psoriasis Psychiatric Medical History: Denies: Dementia, Depression Hematology: Denies: Anemia, Hemophilia, Bleeding Tendencies Past Surgical History Past Surgical History: Denies: Cardiac Catheterization, Orthopedic Surgery, Pacemaker, Vascular Surgery Social History Lives with: Family Smoking Status: Current Every Day Smoker Frequency of Alcohol Use: None Hx Recreational Drug Use: No Drugs: None Hx Prescription Drug Abuse: No Family History Family History: None Parental Family History Reviewed: Yes Children Family History Reviewed: Yes Sibling(s) Family History Reviewed.: Yes Medication/Allergy Home Medications: Aspirin 81 mg PO DAILY #30 tab.chew 01/13/18 Atorvastatin Calcium [Lipitor 40 mg Tablet] 40 mg PO QHS 30 Days #30 tablet 01/13/18 Buspirone HCl [Buspar 10 mg Tablet] 10 mg PO Q12 #60 tablet 01/13/18 Divalproex Sodium [Depakote ER 250 mg Tablet] 250 mg PO BID #60 tab.sr.24h 01/13/18 Furosemide [Lasix 20 mg Tablet] 20 mg PO QAM #30 tablet 01/13/18 Losartan Potassium [Cozaar 50 mg Tablet] 100 mg PO DAILY #30 tablet 01/13/18 Metoprolol Tartrate [Lopressor 25 mg Tablet] 12.5 mg PO Q12 30 Days #30 tab 02/24/18 Allergies/Adverse Reactions: No Known Allergies Allergy (Verified 04/25/18 11:59) Review of Systems Review of Systems: As per HPI. Physical Exam Vital Signs: Temp Pulse Resp BP Pulse Ox 97.6 F 87 21 H 149/96 H 92 04/25/18 12:03 04/25/18 12:03 04/25/18 16:07 04/25/18 16:07 04/25/18 16:07 Intake & Output 04/24/18 04/25/18 04/26/18 06:59 06:59 06:59 Weight 102 kg General appearance: PRESENT: no acute distress, well-developed, well-nourished Head exam: PRESENT: atraumatic, normocephalic Neck exam: PRESENT: JVD. ABSENT: carotid bruit, lymphadenopathy, thyromegaly Respiratory exam: PRESENT: clear to auscultation ochoa. ABSENT: rales, rhonchi, wheezes Pulses: PRESENT: normal dorsalis pedis pul GI/Abdominal exam: PRESENT: normal bowel sounds, soft. ABSENT: distended, guarding, mass, organolmegaly, rebound, tenderness Extremities exam: PRESENT: full ROM, pedal edema, +2 edema Neurological exam: PRESENT: alert, awake, oriented to person, oriented to place, oriented to time, oriented to situation, CN II-XII grossly intact. ABSENT: motor sensory deficit Skin exam: PRESENT: dry, intact, warm. ABSENT: cyanosis, rash Results Laboratory Results: 04/25/18 13:17 04/25/18 13:17 04/25/18 04/25/18 13:17 13:17 WBC 8.1 RBC 4.03 L Hgb 11.9 L Hct 35.8 L MCV 89 MCH 29.6 MCHC 33.3 RDW 15.3 H Plt Count 251 Seg Neutrophils % 65.2 Lymphocytes % 17.0 Monocytes % 8.4 Eosinophils % 8.8 H Basophils % 0.6 Absolute Neutrophils 5.3 Absolute Lymphocytes 1.4 Absolute Monocytes 0.7 Absolute Eosinophils 0.7 H Absolute Basophils 0.1 Sodium 143.7 Potassium 4.3 Chloride 112 H Carbon Dioxide 25 Anion Gap 7 BUN 31 H Creatinine 2.04 H Est GFR ( Amer) 40 L Est GFR (Non-Af Amer) 33 L Glucose 115 H Calcium 8.1 L Total Bilirubin 0.2 AST 20 ALT 13 L Alkaline Phosphatase 163 H Total Protein 5.5 L Albumin 2.7 L Impressions: Chest X-Ray 04/25/18 13:07 IMPRESSION: Cardiac enlargement with vascular congestion. Increased bilateral pleural effusions. Chest CT 04/25/18 16:03 IMPRESSION: Large bilateral pleural effusions with compressive atelectasis of the lung bases. Assessment & Plan - Diagnosis (1) Acute on chronic diastolic CHF (congestive heart failure) Is this a current diagnosis for this admission?: Yes Plan: IV diuretics, cardiac diet, strict in and out, fluid restriction, daily weights. 2D echo. Pending BNP. 01/06/2018. 2D echo ejection fraction 55%. (2) Acute on chronic kidney failure Is this a current diagnosis for this admission?: Yes Plan: Likely prerenal caused by intra-vascular volume depletion as by CHF exacerbation. Nonoliguric, and uremic. Monitor volume status, electrolytes, CMP tomorrow. Renal ultrasound. (3) Bilateral pleural effusion Is this a current diagnosis for this admission?: Yes Plan: Per problem #1. (4) DM II (diabetes mellitus, type II), controlled Qualifiers: Is this a current diagnosis for this admission?: No Plan: Diabetic diet, insulin, pre-meal insulin, sliding scale insulin, adjust dosage as needed. (5) Hyperlipidemia Is this a current diagnosis for this admission?: No Plan: Statins. Diet and lifestyle modification.
[2018-04-25] MEDS ORDERED: IPRATROPIUM/ALBUTEROL 0.5-2.5 MG/3 ML AMPUL NEB PRN (17:26)
[2018-04-25] MEDS ORDERED: ACETAMINOPHEN 325 MG TABLET PO PRN (17:26)
[2018-04-25] MEDS ORDERED: ONDANSETRON HCL INJ/PF 4 MG/2 ML SDV IV PRN (17:26)
[2018-04-25] MEDS ORDERED: DEXTROSE 40% GEL 15 GM TUBE PO PRN ×2 (17:32)
[2018-04-25] MEDS ORDERED: DEXTROSE 50%-WATER 25 GM/50 ML DISP.SYRIN IV PRN ×2 (17:32)
[2018-04-25] MEDS ORDERED: GLUCAGON,HUMAN RECOMB 1 MG INJ IM PRN (17:32)
[2018-04-25] MEDS: DOCUSATE SODIUM 100 MG CAPSULE PO SCH (18:41)
[2018-04-25] MEDS: DIVALPROEX SODIUM 250 MG TAB.SR.24H PO SCH (18:42)
--- NOTE | 2018-04-25 22:51 | EKG REPORT ---
SEVERITY:- ABNORMAL ECG - SINUS RHYTHM RIGHT BUNDLE BRANCH BLOCK : Confirmed by: Genaro Garcia 25-Apr-2018 22:50:55
[2018-04-25] MEDS: FUROSEMIDE INJ/PF 40 MG/4 ML SDV IV SCH (23:31)
[2018-04-25] MEDS: HEPARIN SOD (PORCINE) 5,000 UNIT/ML 1 ML SYRINGE SUBCUT SCH (23:32)
[2018-04-25] MEDS: INSULIN LISPRO 100 UNIT/ML 3 ML VIAL SUBCUT SCH (23:32)
[2018-04-25] MEDS: BUSPIRONE HCL 10 MG TABLET PO SCH (23:33)
[2018-04-25] MEDS: FAMOTIDINE 20 MG TABLET PO SCH (23:33)
[2018-04-25] MEDS: ATORVASTATIN CALCIUM 40 MG TABLET PO SCH (23:33)
[2018-04-26 05:44] LABS: ABSOLUTE BASOPHILS # (AUTO) 0.1 10^3/uL (0.0-0.2); ABSOLUTE EOSINOPHILS # (AUTO) 0.7 10^3/uL (0.0-0.6); ABSOLUTE LYMPHOCYTES (AUTO) 1.3 10^3/uL (0.5-4.7); ABSOLUTE MONOCYTES (AUTO) 0.6 10^3/uL (0.1-1.4); ABSOLUTE NEUT (AUTO) 5.7 10^3/uL (1.7-8.2); BASOPHILS % (AUTO) 0.6 % (0-2); EOSINOPHILS % (AUTO) 8.6 % (0-6); HEMATOCRIT 32.2 % (37.9-51.0); HEMOGLOBIN 10.9 g/dL (13.5-17.0); LYMPHOCYTES % (AUTO) 15.6 % (13-45); MEAN CORPUSCULAR HEMOGLOBIN 29.9 pg (27.0-33.4); MEAN CORPUSCULAR HGB CONC 33.8 g/dL (32.0-36.0); MEAN CORPUSCULAR VOLUME 88 fl (80-97); MONOCYTES % (AUTO) 7.5 % (3-13); PLATELET COUNT 216 10^3/uL (150-450); RED BLOOD COUNT 3.64 10^6/uL (4.35-5.55); SEGMENTED NEUTROPHILS % (AUTO) 67.7 % (42-78); TOTAL CELLS COUNTED % (AUTO) 100 %; WHITE BLOOD COUNT 8.4 10^3/uL (4.0-10.5)
[2018-04-26 06:09] LABS: ALANINE AMINOTRANSFERASE 21 U/L (21-72); ALBUMIN 2.4 g/dL (3.5-5.0); ALKALINE PHOSPHATASE 141 U/L (38-126); ANION GAP 5 (5-19); ASPARTATE AMINO TRANSFERASE 22 U/L (17-59); BILIRUBIN,DIRECT 0.1 mg/dL (0.0-0.4); BILIRUBIN,TOTAL 0.2 mg/dL (0.2-1.3); BLOOD UREA NITROGEN 30 mg/dL (7-20); CARBON DIOXIDE 25 mmol/L (22-30); CHLORIDE 112 mmol/L (98-107); GLUCOSE 127 mg/dL (75-110); SODIUM 142.2 mmol/L (137-145); TOTAL PROTEIN 5.1 g/dL (6.3-8.2)
[2018-04-26 06:21] LABS: FREE T3 3.19 pg/mL (2.77-5.27)
[2018-04-26 06:35] LABS: THYROID STIMULATING HORMONE 3.63 uIU/mL (0.47-4.68)
[2018-04-26] MEDS: HEPARIN SOD (PORCINE) 5,000 UNIT/ML 1 ML SYRINGE SUBCUT SCH ×3 (06:51→21:43)
[2018-04-26] MEDS: INSULIN LISPRO 100 UNIT/ML 3 ML VIAL SUBCUT SCH ×4 (07:40→21:44)
[2018-04-26] MEDS: FAMOTIDINE 20 MG TABLET PO SCH ×2 (10:37→21:44)
[2018-04-26] MEDS: BUSPIRONE HCL 10 MG TABLET PO SCH ×2 (10:37→21:43)
[2018-04-26] MEDS: DOCUSATE SODIUM 100 MG CAPSULE PO SCH ×2 (10:37→18:43)
[2018-04-26] MEDS: DIVALPROEX SODIUM 250 MG TAB.SR.24H PO SCH ×2 (10:37→18:43)
[2018-04-26] MEDS: FUROSEMIDE INJ/PF 40 MG/4 ML SDV IV SCH ×2 (10:37→21:43)
[2018-04-26] MEDS: ASPIRIN 81 MG TABLET, CHEWABLE PO SCH (10:37)
[2018-04-26] MEDS: NICOTINE 14 MG/24 HR PATCH.TD24 TD SCH (10:38)
--- NOTE | 2018-04-26 18:56 | PDOC PROGRESS REPORT ---
Subjective Progress Note for:: 04/26/18 Subjective:: No acute events overnight Reason For Visit: CHF EXACERBATION Physical Exam Vital Signs: Temp Pulse Resp BP Pulse Ox 97.4 F 79 17 157/71 H 96 04/26/18 15:32 04/26/18 15:32 04/26/18 15:32 04/26/18 15:32 04/26/18 15:32 Intake & Output 04/25/18 04/26/18 04/27/18 06:59 06:59 06:59 Intake Total 621 Balance 621 Weight 101.6 kg General appearance: PRESENT: no acute distress, well-developed, well-nourished Results Laboratory Results: 04/26/18 05:17 04/26/18 05:17 04/26/18 04/26/18 04/26/18 05:17 05:17 05:17 WBC 8.4 RBC 3.64 L Hgb 10.9 L Hct 32.2 L MCV 88 MCH 29.9 MCHC 33.8 RDW 15.0 H Plt Count 216 Seg Neutrophils % 67.7 Lymphocytes % 15.6 Monocytes % 7.5 Eosinophils % 8.6 H Basophils % 0.6 Absolute Neutrophils 5.7 Absolute Lymphocytes 1.3 Absolute Monocytes 0.6 Absolute Eosinophils 0.7 H Absolute Basophils 0.1 Sodium 142.2 Potassium 4.0 Chloride 112 H Carbon Dioxide 25 Anion Gap 5 BUN 30 H Creatinine 1.98 H Est GFR ( Amer) 42 L Est GFR (Non-Af Amer) 34 L Glucose 127 H Calcium 8.0 L Magnesium 1.6 Total Bilirubin 0.2 AST 22 ALT 21 Alkaline Phosphatase 141 H Total Protein 5.1 L Albumin 2.4 L TSH 3.63 Free T3 pg/mL 3.19 04/25/18 04/25/18 13:17 16:58 Troponin I 0.033 NT-Pro-B Natriuret Pep 86986 H Impressions: Chest X-Ray 04/25/18 13:07 IMPRESSION: Cardiac enlargement with vascular congestion. Increased bilateral pleural effusions. Chest CT 04/25/18 16:03 IMPRESSION: Large bilateral pleural effusions with compressive atelectasis of the lung bases. Assessment & Plan - Diagnosis (1) Acute on chronic diastolic CHF (congestive heart failure) Is this a current diagnosis for this admission?: Yes (2) Acute on chronic kidney failure Is this a current diagnosis for this admission?: Yes (3) Bilateral pleural effusion Is this a current diagnosis for this admission?: Yes (4) DM II (diabetes mellitus, type II), controlled Qualifiers: Is this a current diagnosis for this admission?: No (5) Hyperlipidemia Is this a current diagnosis for this admission?: No
[2018-04-26] MEDS: ATORVASTATIN CALCIUM 40 MG TABLET PO SCH (21:43)
[2018-04-27] MEDS: HEPARIN SOD (PORCINE) 5,000 UNIT/ML 1 ML SYRINGE SUBCUT SCH ×3 (05:47→21:28)
[2018-04-27] MEDS: INSULIN LISPRO 100 UNIT/ML 3 ML VIAL SUBCUT SCH ×4 (09:04→21:31)
[2018-04-27] MEDS: FUROSEMIDE INJ/PF 40 MG/4 ML SDV IV SCH ×2 (09:57→21:28)
[2018-04-27] MEDS: ASPIRIN 81 MG TABLET, CHEWABLE PO SCH (09:57)
[2018-04-27] MEDS: DOCUSATE SODIUM 100 MG CAPSULE PO SCH ×2 (09:57→17:26)
[2018-04-27] MEDS: DIVALPROEX SODIUM 250 MG TAB.SR.24H PO SCH ×2 (09:57→17:26)
[2018-04-27] MEDS: BUSPIRONE HCL 10 MG TABLET PO SCH ×2 (09:57→21:29)
[2018-04-27] MEDS: FAMOTIDINE 20 MG TABLET PO SCH ×2 (09:57→21:28)
[2018-04-27] MEDS: NICOTINE 14 MG/24 HR PATCH.TD24 TD SCH (09:57)
[2018-04-27 10:52] LABS: BLOOD UREA NITROGEN 29 mg/dL (7-20); CALCIUM 8.1 mg/dL (8.4-10.2); GLUCOSE 187 mg/dL (75-110)
[2018-04-27 10:53] LABS: ANION GAP 6 (5-19); CARBON DIOXIDE 25 mmol/L (22-30); CHLORIDE 107 mmol/L (98-107); POTASSIUM 3.8 mmol/L (3.6-5.0); SODIUM 138.3 mmol/L (137-145)
--- NOTE | 2018-04-27 18:35 | PDOC PROGRESS REPORT ---
Subjective Progress Note for:: 04/27/18 Subjective:: No acute events overnight Reason For Visit: CHF EXACERBATION Physical Exam Vital Signs: Temp Pulse Resp BP Pulse Ox 97.7 F 89 19 145/67 H 93 04/27/18 15:33 04/27/18 15:33 04/27/18 15:33 04/27/18 15:33 04/27/18 15:33 Intake & Output 04/26/18 04/27/18 04/28/18 06:59 06:59 06:59 Intake Total 1242 961 Balance 1242 961 Weight 101.6 kg General appearance: PRESENT: no acute distress, well-developed, well-nourished Head exam: PRESENT: atraumatic, normocephalic Respiratory exam: PRESENT: clear to auscultation ochoa. ABSENT: rales, rhonchi, wheezes Cardiovascular exam: PRESENT: RRR. ABSENT: diastolic murmur, rubs, systolic murmur GI/Abdominal exam: PRESENT: normal bowel sounds, soft. ABSENT: distended, gu arding, mass, organolmegaly, rebound, tenderness Extremities exam: PRESENT: +2 edema Neurological exam: PRESENT: alert, awake, oriented to person, oriented to place, oriented to time, oriented to situation, CN II-XII grossly intact. ABSENT: motor sensory deficit Results Laboratory Results: 04/26/18 05:17 04/27/18 10:19 04/27/18 10:19 Sodium 138.3 Potassium 3.8 Chloride 107 Carbon Dioxide 25 Anion Gap 6 BUN 29 H Creatinine 1.93 H Est GFR ( Amer) 43 L Est GFR (Non-Af Amer) 35 L Glucose 187 H Calcium 8.1 L 04/25/18 04/25/18 13:17 16:58 Troponin I 0.033 NT-Pro-B Natriuret Pep 99649 H Impressions: Chest X-Ray 04/25/18 13:07 IMPRESSION: Cardiac enlargement with vascular congestion. Increased bilateral pleural effusions. Chest CT 04/25/18 16:03 IMPRESSION: Large bilateral pleural effusions with compressive atelectasis of the lung bases. Assessment & Plan - Diagnosis (1) Acute on chronic diastolic CHF (congestive heart failure) Is this a current diagnosis for this admission?: Yes Plan: IV diuretics, cardiac diet, strict in and out, fluid restriction, daily weights. 2D echo. [address] BNP. 01/06/2018. 2D echo ejection fraction 55%. (2) Acute on chronic kidney failure Is this a current diagnosis for this admission?: Yes Plan: Likely prerenal caused by intra-vascular volume depletion as by CHF exacerbation. Nonoliguric, and uremic. Monitor volume status, electrolytes, CMP tomorrow. Renal ultrasound. (3) Bilateral pleural effusion Is this a current diagnosis for this admission?: Yes Plan: Per problem #1. (4) DM II (diabetes mellitus, type II), controlled Qualifiers: Is this a current diagnosis for this admission?: No Plan: Diabetic diet, insulin, pre-meal insulin, sliding scale insulin, adjust dosage as needed. (5) Hyperlipidemia Is this a current diagnosis for this admission?: No Plan: Statins. Diet and lifestyle modification.
[2018-04-27] MEDS: ATORVASTATIN CALCIUM 40 MG TABLET PO SCH (21:28)
--- NOTE | 2018-04-27 22:18 | RADIOLOGY REPORT (SQ) ---
EXAM DESCRIPTION: US RETROPERITONEUM LIMITED COMPLETED DATE/TME: 04/27/2018 00:00 CLINICAL HISTORY: 62 years, Male, [place] COMPARISON: None. TECHNIQUE: Limited retroperitoneal ultrasound LIMITATIONS: None. FINDINGS: The right kidney has maximal diameter of 11.8 cm, the left 13.3 cm. No renal calculus, mass, or hydronephrosis. No perinephric fluid collection. Cortical medullary differentiation is preserved bilaterally. The visualized urinary bladder is unremarkable. Note is made of ascites as well as cholelithiasis. IMPRESSION: The kidneys appear unremarkable. Ascites. Cholelithiasis copyright 2010 [employer]- All Rights Reserved
[2018-04-28] MEDS: HEPARIN SOD (PORCINE) 5,000 UNIT/ML 1 ML SYRINGE SUBCUT SCH ×3 (05:53→21:19)
[2018-04-28 07:41] LABS: ALANINE AMINOTRANSFERASE 34 U/L (21-72); ALBUMIN 2.8 g/dL (3.5-5.0); ALKALINE PHOSPHATASE 146 U/L (38-126); ANION GAP 8 (5-19); ASPARTATE AMINO TRANSFERASE 32 U/L (17-59); BILIRUBIN,DIRECT 0.2 mg/dL (0.0-0.4); BILIRUBIN,TOTAL 0.3 mg/dL (0.2-1.3); BLOOD UREA NITROGEN 32 mg/dL (7-20); CARBON DIOXIDE 25 mmol/L (22-30); CHLORIDE 107 mmol/L (98-107); GLUCOSE 117 mg/dL (75-110); POTASSIUM 4.6 mmol/L (3.6-5.0); SODIUM 140.1 mmol/L (137-145); TOTAL PROTEIN 5.6 g/dL (6.3-8.2)
[2018-04-28] MEDS: INSULIN LISPRO 100 UNIT/ML 3 ML VIAL SUBCUT SCH ×4 (09:11→21:39)
--- NOTE | 2018-04-28 09:26 | RADIOLOGY REPORT (SQ) ---
EXAM DESCRIPTION: CHEST SINGLE VIEW COMPLETED DATE/TIME: 04/28/2018 9:05 am REASON FOR STUDY: effusions bilater COMPARISON: 04/25/2018. FINDINGS: Single-view chest AP portable semi-upright at approximately 0841 hours. Slightly improved appearance. Right basilar aeration improved with only trace pleural fluid now suggested. Small left pleural effu tyler remains. Mild persistent interstitial prominence. No pneumothorax. TECHNICAL DOCUMENTATION: JOB ID: [id number] Reading location - IP/workstation name: [email or web address]
[2018-04-28 09:49] LABS: ARTERIAL BLOOD BASE EXCESS -2.2 mmol/L; ARTERIAL BLOOD FIO2 28%; ARTERIAL BLOOD H2CO3 1.24 mmol/L (1.05-1.35); ARTERIAL BLOOD O2 SATURATION 93.7 % (94-98); ARTERIAL BLOOD PCO2 41.3 mmHg (35-45); ARTERIAL BLOOD PH 7.36 (7.35-7.45); ARTERIAL BLOOD PO2 70.5 mmHg (80-100); ARTERIAL BLOOD TOTAL CO2 24.3 mmol/L (23-27)
[2018-04-28] MEDS: DIVALPROEX SODIUM 250 MG TAB.SR.24H PO SCH ×3 (10:23→17:59)
[2018-04-28] MEDS: DOCUSATE SODIUM 100 MG CAPSULE PO SCH ×2 (10:23→17:55)
[2018-04-28] MEDS: FAMOTIDINE 20 MG TABLET PO SCH ×2 (10:23→21:18)
[2018-04-28] MEDS: FUROSEMIDE INJ/PF 40 MG/4 ML SDV IV SCH ×2 (10:23→21:19)
[2018-04-28] MEDS: ASPIRIN 81 MG TABLET, CHEWABLE PO SCH (10:23)
[2018-04-28] MEDS: BUSPIRONE HCL 10 MG TABLET PO SCH ×2 (10:23→21:18)
[2018-04-28] MEDS: NICOTINE 14 MG/24 HR PATCH.TD24 TD SCH (10:23)
[2018-04-28] MEDS: THIAMINE HCL 100 MG TABLET PO SCH (10:40)
[2018-04-28] MEDS: FOLIC ACID 1 MG TABLET PO SCH (10:40)
--- NOTE | 2018-04-28 12:21 | PDOC PROGRESS REPORT ---
Subjective Progress Note for:: 04/28/18 Subjective:: No acute events overnight; however in the morning it was noted that the patient was a little less active and responsive compared to yesterday. An ABG was done which was within normal limits, chest x-ray showed improvement of bilateral pleural effusion, ammonia level was less than 8. Patient is easily arousable, alert oriented x3, denies any fever, chills, nausea, vomiting, diarrhea, constipation or any urinary symptoms. Reason For Visit: CHF EXACERBATION Physical Exam Vital Signs: Temp Pulse Resp BP Pulse Ox 97.8 F 104 H 19 161/71 H 100 04/28/18 09:26 04/28/18 09:26 04/28/18 09:26 04/28/18 09:26 04/28/18 09:26 Intake & Output 04/27/18 04/28/18 04/29/18 06:59 06:59 06:59 Intake Total 1242 1461 Balance 1242 1461 Weight 100.4 kg General appearance: PRESENT: no acute distress, well-developed, well-nourished Head exam: PRESENT: atraumatic, normocephalic Respiratory exam: PRESENT: clear to auscultation ochoa. ABSENT: rales, rhonchi, wheezes Cardiovascular exam: PRESENT: RRR. ABSENT: diastolic murmur, rubs, systolic murmur GI/Abdominal exam: PRESENT: normal bowel sounds, soft. ABSENT: distended, guarding, mass, organolmegaly, rebound, tenderness Extremities exam: PRESENT: full ROM, pedal edema, +2 edema. ABSENT: calf tenderness, clubbing Neurological exam: PRESENT: alert, awake, oriented to person, oriented to place, oriented to time, oriented to situation, CN II-XII grossly intact. ABSENT: motor sensory deficit Results Laboratory Results: 04/26/18 05:17 04/28/18 06:55 04/28/18 04/28/18 04/28/18 06:55 08:15 10:15 Carbonic Acid 1.24 HCO3/H2CO3 Ratio 18:1 ABG pH 7.36 ABG pCO2 41.3 ABG pO2 70.5 L ABG HCO3 23.0 ABG O2 Saturation 93.7 L ABG Base Excess -2.2 FiO2 28% Sodium 140.1 Potassium 4.6 Chloride 107 Carbon Dioxide 25 Anion Gap 8 BUN 32 H Creatinine 1.97 H Est GFR ( Amer) 42 L Est GFR (Non-Af Amer) 35 L Glucose 117 H Calcium 8.0 L Magnesium 1.5 L Total Bilirubin 0.3 AST 32 ALT 34 Alkaline Phosphatase 146 H Ammonia < 8.7 L Total Protein 5.6 L Albumin 2.8 L 04/25/18 04/25/18 13:17 16:58 Troponin I 0.033 NT-Pro-B Natriuret Pep 72340 H Impressions: Chest CT 04/25/18 16:03 IMPRESSION: Large bilateral pleural effusions with compressive atelectasis of the lung bases. Renal Ultrasound 04/27/18 00:00 IMPRESSION: The kidneys appear unremarkable. Ascites. Cholelithiasis copyright 2011 [employer]- All Rights Reserved Assessment & Plan - Diagnosis (1) Acute on chronic diastolic CHF (congestive heart failure) Is this a current diagnosis for this admission?: Yes Plan: IV diuretics, cardiac diet, strict in and out, fluid restriction, daily weights. BNP 05999 on admission. 01/06/2018. 2D echo ejection fraction 55%. We will do workup to rule out any nephrotic range proteinuria. (2) Acute on chronic kidney failure Is this a current diagnosis for this admission?: Yes Plan: Likely prerenal caused by intra-vascular volume depletion as by CHF exacerbation. Nonoliguric. Monitor volume status, electrolytes, CMP tomorrow. Renal ultrasound no acute abnormalities. (3) Bilateral pleural effusion Is this a current diagnosis for this admission?: Yes Plan: Improving. Repeat chest x-ray shows resolution of right pleural effusion and reduction in the left lower pleural effusion. Plan as per problem #1 (4) DM II (diabetes mellitus, type II), controlled Qualifiers: Is this a current diagnosis for this admission?: No Plan: Diabetic diet, insulin, pre-meal insulin, sliding scale insulin, adjust dosage as needed. (5) Hyperlipidemia Is this a current diagnosis for this admission?: No Plan: Statins. Diet and lifestyle modification.
--- NOTE | 2018-04-28 14:40 | RADIOLOGY REPORT (SQ) ---
EXAM DESCRIPTION: CT HEAD WITHOUT COMPLETED DATE/TIME: 04/28/2018 2:22 pm REASON FOR STUDY: AMS and restlessness COMPARISON: 01/11/2018 TECHNIQUE: Axial images acquired through the brain without intravenous contrast. Images reviewed wi th bone, brain and subdural windows. Images stored on PACS. All CT scanners at this facility use dose modulation, iterative reconstruction, and/or weight based d osing when appropriate to reduce radiation dose to as low as reasonably achievable (ALARA). [facility]: Dose Right [facility]: CareDose [facility]: Dose Right [facility]: Teradose 4D [facility]: [employer] RADIATION DOSE: CT Rad equipment meets quality standard of care and radiation dose reduction techniq ues were employed. CTDIvol: 53.2 mGy. DLP: 1017 mGy-cm.mGy. LIMITATIONS: None. FINDINGS: VENTRICLES: Age-appropriate. CEREBRUM: No masses. No hemorrhage. No midline shift. Areas of low density in left parietal the wh ite matter most likely due to chronic ischemic change. No evidence for acute infarction. CEREBELLUM: No masses. No hemorrhage. No alteration of density. No evidence for acute infarction. EXTRAAXIAL SPACES: Age-related involutional change. No fluid collections. No masses. ORBITS AND GLOBE: No intra- or extraconal masses. Normal contour of globe without masses. CALVARIUM: No fracture. PARANASAL SINUSES: No fluid levels. Mild left maxillary mucosal thickening. SOFT TISSUES: No mass or hematoma. OTHER: No other significant finding. IMPRESSION: No acute intracranial findings. EVIDENCE OF ACUTE STROKE: NO. TECHNICAL DOCUMENTATION: JOB ID: [id number] Quality ID # [id number]: Final reports with documentation of one or more dose reduction techniques (e.g., Au tomated exposure control, adjustment of the mA and/or kV according to patient size, use of iterative reconstruction technique) 2010 [employer]- All Rights Reserved Reading location - IP/workstation name: [email or web address]
[2018-04-28 17:14] LABS: APPEARANCE,URINE SLIGHTLY-CLOUDY; BILIRUBIN,URINE NEGATIVE (NEGATIVE); COLOR,URINE YELLOW; GLUCOSE, URINE 150 mg/dL (NEGATIVE); KETONES,URINE NEGATIVE (NEGATIVE); LEUKOCYTE ESTERASE,URINE NEGATIVE (NEGATIVE); NITRITE,URINE NEGATIVE (NEGATIVE); PROTEIN,URINE >=500 mg/dL (NEGATIVE); URINE SPECIFIC GRAVITY 1.017; UROBILINOGEN,URINE NEGATIVE mg/dL (<2.0)
[2018-04-28 18:15] LABS: URINE CREATININE 69.3 mg/dL (22-328)
[2018-04-28 19:13] LABS: URINE PROTEIN 281.3 mg/dL (<12)
[2018-04-28] MEDS: CARVEDILOL 12.5 MG TABLET PO SCH (21:18)
[2018-04-28] MEDS: ATORVASTATIN CALCIUM 40 MG TABLET PO SCH (21:18)
[2018-04-29] MEDS: HEPARIN SOD (PORCINE) 5,000 UNIT/ML 1 ML SYRINGE SUBCUT SCH ×3 (05:01→21:32)
[2018-04-29] MEDS: INSULIN LISPRO 100 UNIT/ML 3 ML VIAL SUBCUT SCH ×4 (07:28→21:32)
[2018-04-29] MEDS: CARVEDILOL 12.5 MG TABLET PO SCH ×2 (10:11→21:32)
[2018-04-29] MEDS: BUSPIRONE HCL 10 MG TABLET PO SCH ×2 (10:11→21:31)
[2018-04-29] MEDS: FOLIC ACID 1 MG TABLET PO SCH (10:11)
[2018-04-29] MEDS: DIVALPROEX SODIUM 250 MG TAB.SR.24H PO SCH ×2 (10:11→17:51)
[2018-04-29] MEDS: DOCUSATE SODIUM 100 MG CAPSULE PO SCH ×2 (10:11→18:31)
[2018-04-29] MEDS: THIAMINE HCL 100 MG TABLET PO SCH (10:11)
[2018-04-29] MEDS: NICOTINE 14 MG/24 HR PATCH.TD24 TD SCH (10:12)
[2018-04-29] MEDS: FUROSEMIDE INJ/PF 40 MG/4 ML SDV IV SCH (10:12)
[2018-04-29] MEDS: ASPIRIN 81 MG TABLET, CHEWABLE PO SCH (10:12)
[2018-04-29] MEDS: FAMOTIDINE 20 MG TABLET PO SCH ×2 (10:12→21:31)
[2018-04-29 12:08] LABS: ANION GAP 9 (5-19); BLOOD UREA NITROGEN 39 mg/dL (7-20); CALCIUM 7.4 mg/dL (8.4-10.2); CARBON DIOXIDE 24 mmol/L (22-30); CHLORIDE 106 mmol/L (98-107); GLUCOSE 99 mg/dL (75-110); POTASSIUM 3.8 mmol/L (3.6-5.0); SODIUM 138.7 mmol/L (137-145)
--- NOTE | 2018-04-29 13:10 | PDOC PROGRESS REPORT ---
Subjective Progress Note for:: 04/29/18 Subjective:: Patient has been restless and altered overnight saturating in the 90s with O2 of 30% BiPAP. On my encounter patient is wearing BiPAP, very restless, oriented to person and place, apparent respiratory distress. Endorsing shortness of breath, denying any chest pain, nausea, vomiting, diarrhea, constipation or any urinary symptoms. Yesterday an ABG was done which was within normal limits, ammonia level was less than 8, CT head was also negative. Reason For Visit: CHF EXACERBATION Physical Exam Vital Signs: Temp Pulse Resp BP Pulse Ox 97.7 F 76 25 H 113/53 L 97 04/29/18 11:50 04/29/18 11:50 04/29/18 11:50 04/29/18 11:50 04/29/18 11:50 Intake & Output 04/28/18 04/29/18 04/30/18 06:59 06:59 06:59 Intake Total 1461 560 Output Total 500 Balance 1461 60 Weight 100.4 kg 102.4 kg General appearance: PRESENT: mild distress Head exam: PRESENT: atraumatic, normocephalic Neck exam: ABSENT: carotid bruit, JVD, lymphadenopathy, thyromegaly Respiratory exam: PRESENT: crackles, decreased breath sounds Cardiovascular exam: PRESENT: RRR. ABSENT: diastolic murmur, rubs, systolic murmur GI/Abdominal exam: PRESENT: normal bowel sounds, soft. ABSENT: distended, guarding, mass, organolmegaly, rebound, tenderness Results Laboratory Results: 04/26/18 05:17 04/29/18 11:20 04/28/18 04/29/18 11:30 11:20 Sodium 138.7 Potassium 3.8 Chloride 106 Carbon Dioxide 24 Anion Gap 9 BUN 39 H Creatinine 2.25 H Est GFR ( Amer) 36 L Est GFR (Non-Af Amer) 30 L Glucose 99 Calcium 7.4 L Urine Color YELLOW Urine Appearance SLIGHTLY-CLOUDY Urine pH 5.0 Ur Specific [place] 1.017 Urine Protein >=500 H Urine Glucose (UA) 150 H Urine Ketones NEGATIVE Urine Blood MODERATE H Urine Nitrite NEGATIVE Ur Leukocyte Esterase NEGATIVE Urine WBC (Auto) 1 Urine RBC (Auto) 11 04/25/18 04/25/18 13:17 16:58 Troponin I 0.033 NT-Pro-B Natriuret Pep 08812 H Impressions: Chest CT 04/25/18 16:03 IMPRESSION: Large bilateral pleural effusions with compressive atelectasis of the lung bases. Renal Ultrasound 04/27/18 00:00 IMPRESSION: The kidneys appear unremarkable. Ascites. Cholelithiasis copyright 2010 [employer]- All Rights Reserved Head CT 04/28/18 00:00 IMPRESSION: No acute intracranial findings. EVIDENCE OF ACUTE STROKE: NO. Assessment & Plan - Diagnosis (1) Acute respiratory failure Qualifiers: Respiratory failure complication: unspecified whether with hypoxia or hypercapnia Qualified Code(s): J96.00 - Acute respiratory failure, unspecified whether with hypoxia or hypercapnia Is this a current diagnosis for this admission?: Yes Plan: Likely due to volume overload caused by acute CHF patient superimposed on acute on chronic renal failure. Continue strict in and out, fluid restriction, IV diuretics, BiPAP, mental ox ygen. We will insert Leos and continue IV diuretics, if patient becomes anuric/oliguric still in respiratory distress transfer to a tertiary center where he can get hemodialysis for his volume overload. Nephrology has been consulted but unfortunately no nephrology consult available over the weekend. (2) Acute on chronic diastolic CHF (congestive heart failure) Is this a current diagnosis for this admission?: Yes Plan: IV diuretics, cardiac diet, strict in and out, fluid restriction, daily weights. BNP 45705 on admission. 01/06/2018. 2D echo ejection fraction 55%. We will do workup to rule out any nephrotic range proteinuria. (3) Acute on chronic kidney failure Is this a current diagnosis for this admission?: Yes Plan: Worsening. Likely prerenal caused by intra-vascular volume depletion as by CHF exacerbation. Nonoliguric. Monitor volume status, electrolytes, CMP tomorrow. 04/28/2018. Renal ultrasound no acute abnormalities. Pending 24-hour urine collection for protein quantification as patient is on Lasix spot protein to creatinine 1. Workup to rule out any nephrotic range proteinuria. Nephrology consult in place however no consult available in the weekends. Will insert Leos cath strict in and out if becomes a correct/anuric will transfer to another tertiary center where he can get hemodialysis. (4) Bilateral pleural effusion Is this a current diagnosis for this admission?: Yes Plan: Improving. Repeat chest x-ray shows resolution of right pleural effusion and reduction in the left lower pleural effusion. Plan as per problem #1 (5) DM II (diabetes mellitus, type II), controlled Qualifiers: Is this a current diagnosis for this admission?: No Plan: Diabetic diet, insulin, pre-meal insulin, sliding scale insulin, adjust dosage as needed. (6) Hyperlipidemia Is this a current diagnosis for this admission?: No Plan: Statins. Diet and lifestyle modification.
[2018-04-29] MEDS: FUROSEMIDE INJ/PF 100 MG/10 ML SDV IV SCH ×2 (17:51→21:32)
[2018-04-29] MEDS: ATORVASTATIN CALCIUM 40 MG TABLET PO SCH (21:31)
[2018-04-30 00:02] VITALS: BP 94/54
[2018-04-30 01:10] LABS: 24 HOUR URINE PROTEIN RESULT 17232 mg/day (42-225); URINE PROTEIN 1538.6 mg/dL (<12)
[2018-04-30] MEDS ORDERED: NOREPINEPHRINE BITARTRATE INJ/PF 4 MG/4 ML SDV IV ONE (02:54)
[2018-04-30] MEDS ORDERED: MIDAZOLAM HCL 50 MG/100 ML RTUINJ ONE (03:08)
[2018-04-30 03:37] LABS: ARTERIAL BLOOD BASE EXCESS -11.3 mmol/L; ARTERIAL BLOOD H2CO3 2.72 mmol/L (1.05-1.35); ARTERIAL BLOOD HCO3 21.1 mmol/L (20-24); ARTERIAL BLOOD O2 SATURATION 17.7 % (94-98); ARTERIAL BLOOD TOTAL CO2 23.9 mmol/L (23-27)
[2018-04-30 03:43] LABS: ARTERIAL BLOOD FIO2 100%; ARTERIAL BLOOD PCO2 90.5 mmHg (35-45); ARTERIAL BLOOD PH 6.99 (7.35-7.45)
[2018-04-30 03:44] LABS: ARTERIAL BLOOD PO2 21.5 mmHg (80-100)
[2018-04-30] MEDS ORDERED: SODIUM BICARBONATE 8.4% INJ 50 MEQ/50 ML DISP.SYRIN ONE ×2 (03:45→07:00)
[2018-04-30 03:51] LABS: CREATINE KINASE MB 5.36 ng/mL (<4.55)
[2018-04-30 03:53] LABS: TROPONIN I 0.271 ng/mL
--- NOTE | 2018-04-30 03:59 | Progress Note ---
Provider Note Provider Note: Critical care note: CODE BLUE:02:20 04/30/2018 Critical care start time: 02:22 04/30/2018 Patient was noted to be bradycardic and subsequently lost pulse and respiratory secretions resulting in a CODE BLUE. CPR was initiated and within less than 60 seconds an ACLS response was mounted. Patient was treated with epinephrine administered every 3-4 minutes and continued effective CPR with chest compressions and bag valve mask ventilation. His rhythm showed PEA on each pulse check. After the fifth epinephrine the patient was noted to have a pulse and a good blood pressure but was making minimal respiratory efforts but was easily supported with bag valve mask and subsequently with endotracheal intubation. Patient was being observed for a short time post intubation while arrangements were being made for transfer to the ICU when he again developed bradycardia and pulselessness. He was administered epinephrine intravenously and ACLS techniques utilizing chest compressions and bag valve ET tube ventilation were reinstated. After the second of administration of epinephrine the patient again developed a pulse and his blood pressure returned. Ventilatory support was continued with bag valve ET tube and the patient was taken to the ICU for further treatment. Shortly after arriving in the ICU patient developed hypotension and eventually pulselessness. ACLS efforts were again reinstated and he was continued on an IV infusion of epinephrine as well as an IV infusion of Levophed. He was given sodium bicarbonate and atropine but though he had several brief episodes where his heart rate developed a pulse and blood pressure these episodes lasted only for a few seconds up to a minute and a half. The last several episodes were fleeting and were noted to be less than 15 seconds were a pulse could be palpated and there was not enough time to obtain a blood pressure. The family arrived and I explained the situation that we had been at this resuscitation effort for 85 minutes and with their understanding that he was not responding and agreement that we would not continue if his next pulse check was negative. CPR was continued for 3 more minutes and a pulse check was performed with no pulse palpable at either femoral or carotid artery and no pulse audible Via Doppler at either femoral artery. The resuscitation effort was discontinued at the 88th minute. Critical care and time: 03:50 04/30/2018 Total critical care FaceTime: 64 minutes
--- NOTE | 2018-04-30 04:05 | RADIOLOGY REPORT (SQ) ---
EXAM DESCRIPTION: XR CHEST 1 VIEW COMPLETED DATE/TME: 04/30/2018 00:00 CLINICAL HISTORY: 62 years, Male, ETT placement COMPARISON: 04/28/2018 chest NUMBER OF VIEWS: 1 TECHNIQUE: Portable chest LIMITATIONS: None. FINDINGS: Cardiomegaly. Endotracheal and enteric tubes are in place. Overlying artifact limits evaluation of the lower mediastinum. Airspace opacities bilaterally likely reflecting pulmonary edema. Underlying pneumonia not excluded. Vague lucency projecting along the left costophrenic angle may in part relate to overlying soft tissues and layering effusion. A small left basilar pneumothorax would be difficult to exclude entirely. Recommend attention on follow-up.. IMPRESSION: Cardiomegaly with interval development of interstitial and airspace opacities likely reflecting pulmonary edema. Endotracheal tube and enteric tubes have been placed. Overlying artifact. Lucency of the left lung base, as above which may in part reflect a combination of summation of shadows with bilateral effusions. Small left basilar pneumothorax is not excluded entirely. copyright 2010 [employer]- All Rights Reserved
--- NOTE | 2018-04-30 04:43 | Death Summary ---
Summary Date : 04/30/18 Time of :: 03:50 Autopsy: No Resuscitation Status: Full Code Primary Care Provider: None recorded - Final Diagnosis (1) Acute respiratory failure Is this a current diagnosis for this admission?: Yes (2) Acute on chronic diastolic CHF (congestive heart failure) Is this a current diagnosis for this admission?: Yes (3) DM II (diabetes mellitus, type II), controlled Is this a current diagnosis for this admission?: Yes (4) HTN (hypertension), malignant Is this a current diagnosis for this admission?: Yes (5) CKD (chronic kidney disease) stage 3, GFR 30-59 ml/min Is this a current diagnosis for this admission?: Yes (6) Hyperlipidemia Is this a current diagnosis for this admission?: Yes (7) Tobacco use Is this a current diagnosis for this admission?: Yes Hospital Course:: YAHIR PARSON is a 62 year old male past medical history of hypertension, hyperlipidemia, CHF, diabetes sent from his primary care physician for shortness of breath, abdominal distention, lower extremity edema. Patient states that he has been having worsening shortness of breath for the last 1 month associated with orthopnea and dyspnea on exertion. He is compliant with his medications denies any recent illness, or excessive fluid intake. Denying any chest pain, nausea, vomiting, abdominal pain, diarrhea, constipation, or any urinary symptoms. ED CT chest showed large bilateral pleural effusion with compressive atelectasis of the lung bases on his CMP worsening kidney function. Over the duration of his hospital course he was treated for his congestive heart failure as well as efforts at controlling his diabetes and hypertension. He continued to have significant difficulty with respiratory failure requiring ongoing BiPAP. He had been restless on the evening prior to his demise and was having a good deal of difficulty keeping the BiPAP in place as it seem to be bothering him. He had been resting peacefully when checked by his nurse at his last well check but then was found to be struggling for breath a short time later and was noted to develop bradycardia and then collapsed a pulseless and breathless state. Despite a 93-minute effort at cardiopulmonary resuscitation with several short-lived recoveries of the patient's blood pressure and pulse he eventually was no longer able to respond despite ongoing resuscitation efforts. At this point the patient's family agreed that it was time to discontinue resuscitation efforts. Patient's body will be released to the mortuary of the family's choosing.
[2018-04-30] MEDS ORDERED: ATROPINE SULFATE INJ 1 MG/10 ML DISP.SYRIN IV ONE ×2 (07:00)
[2018-04-30] MEDS ORDERED: EPINEPHRINE INJ 1 MG/10 ML DISP.SYRIN ONE ×2 (07:00)
[2018-04-30 08:17] LABS: MICROALBUMIN URINE 5992.1 ug/mL (Not Estab.)
[2018-04-30 13:39] LABS: ANTICHROMATIN AB <0.2 AI (0.0-0.9); CENTROMERE B AB <0.2 AI (0.0-0.9); JO-1 ANTIBODY (ANACOMP) <0.2 AI (0.0-0.9); SJOGREN'S ANTI-SS-B AB <0.2 AI (0.0-0.9); SJOGREN'S SS-A ANTIBODY <0.2 AI (0.0-0.9)
[2018-04-30 14:27] LABS: DNA DOUBLE STRAND ANTIBODY ANA <1 IU/mL (0-9)
[2018-04-30 14:38] LABS: COMPLEMENT C4 27 mg/dL (14-44)
[2018-04-30 23:39] LABS: COMPLEMENT C3 131 mg/dL (82-167)
[2018-05-01 17:36] LABS: ALPHA-1-GLOBULIN URINE 3.6 % (.); ALPHA-2-GLOBULIN URINE 10.6 % (.); GAMMA GLOBULIN URINE 16.6 % (.); M-SPIKE % UR Not Observed % (Not Observ)
[2018-05-01 23:48] LABS: PROTEIN TOTAL URINE 1116.6 mg/dL (Not Estab.)
[2018-05-03 16:39] LABS: A/G RATIO. 0.8 (0.7-1.7); ALBUMIN 3 2.3 g/dL (2.9-4.4); ALPHA-1-GLOBULIN 0.3 g/dL (0.0-0.4); GAMMA GLOBULINS 0.8 g/dL (0.4-1.8); IMMUNOGLOBULIN A 368 mg/dL (61-437); IMMUNOGLOBULIN G 1017 mg/dL (700-1600); IMMUNOGLOBULIN M 80 mg/dL (20-172); MONOCLONAL-SPIKE Not Observed g/dL (Not Observ); PROTEIN TOTAL SERUM 5.4 g/dL (6.0-8.5)
== END 2018-04-30 07:00 | DRG 291 ==
LOC: ER 11:50 → EH 17:07 → 4N 04-26 00:33 → ICU 04-30 03:05
PROVIDERS: ADMIT Hospitalist; ATTEND Hospitalist
PROC: 5A09557 Assistance with Respiratory Ventilation, Greater than 96 Consecutive Hours, Continuous Positive Airway Pressure (ICD-10-PCS; principal; 2018-04-25)
PROC: 0BH17EZ Insertion of Endotracheal Airway into Trachea, Via Natural or Artificial Opening (ICD-10-PCS; 2018-04-30)
DX: I11.0 Hypertensive heart disease with heart failure (principal); J96.00 Acute respiratory failure, unspecified whether with hypoxia or hypercapnia; N17.9 Acute kidney failure, unspecified; I50.33 Acute on chronic diastolic (congestive) heart failure; E78.5 Hyperlipidemia, unspecified; E11.22 Type 2 diabetes mellitus with diabetic chronic kidney disease; F17.200 Nicotine dependence, unspecified, uncomplicated; I13.0 Hypertensive heart and chronic kidney disease with heart failure and stage 1 through stage 4 chronic kidney disease, or unspecified chronic kidney disease; N18.3 Chronic kidney disease, stage 3 (moderate)
CPT/HCPCS: 36415; 36600; 70450; 71045; 71250; 76775; 80048; 80053; 81001; 82043; 82140; 82550; 82553; 82570; 82803; 82962; 83036; 83735; 83880; 84156; 84166; 84443; 84481; 84484; 85025; 86160; 86225; 86235; 86320; 93005; 93010; 94660; 96374; 99291; J0171; J0461; J1644; J1815; J1940; J2405; J3490